=== PATIENT | male | born 1955 | race Caucasian/White ===

== ENCOUNTER → 2021-08-09 11:04 | Outpatient (CLI) | payer MEDICARE, SELFPAY ==
--- NOTE | ~2021-08-09 | XR_ITS ---
XR cervical spine 4-5V DATE: 08/09/2021 11:27 INDICATION: Neck pain for one month. No injury. TECHNIQUE: AP, open-mouth, odontoid, lateral and swimmer views COMPARISON: None FINDINGS: There is reversal of cervical curvature. C1 and C2 are normally aligned and the odontoid process is intact. No fracture or locked facet is kevan dent. No prevertebral soft tissue swelling. 3 mm anterolisthesis at C2-3 and C3-4. 1.5 mm anterolisthesis at C4-5. Moderately severe degenerative disc disease and 2 mm retrolisthesis at C5-6. Moderate degenerative disc disease at C6-7. There is prominent degenerative change at the apophyseal joints throughout the cervical spine. IMPRESSION: Reversal of cervical curvature Prominent degenerative change at the apophyseal joints 3 mm anterolisthesis at C2-3 and C3-4 1.5 mm anterolisthesis at C4-5 Moderately severe degenerative disc disease and 2 mm retrolisthesis at C5-6 Moderate degenerative disc disease at C6-7 Reviewed, dictated and finalized at location A.
== END ==
PROVIDERS: PCP Emergency Medicine; Visit Provider Emergency Medicine
DX: M50.30 Other cervical disc degeneration, unspecified cervical region (principal)
CPT/HCPCS: 72050

== ENCOUNTER 2024-08-08 11:43 | Inpatient (IN) | payer MEDICARE, SELFPAY ==
[2024-08-08] VITALS (10 sets, daily range): BP systolic 114–149; BP diastolic 58–90; PULSE 93–108; RESP 16–20; TEMP 36.4–37.8; O2SAT 92–97; BMI 32.3
--- NOTE | ~2024-08-08 | CT_ITS ---
CT head without contrast Indication: Head injury Technique: Serial scans were obtained through the brain without the administration of contrast. Dose reduction technique was used on this scan by utilizing automated exposure control and iterative recon struction technique. The dose-length product (DLP) was 605.33 mGy-cm. Findings: There is no evidence of intracranial hemorrhage, mass lesion, or acute infarct. The ventri cles and subarachnoid spaces are dilated, consistent with mild atrophy. Low attenuation regions are seen within the periventricular white matter bilaterally, likely representing changes from chronic mi crovascular ischemic disease. There is no evidence of edema, mass effect or midline shift. The visu alized paranasal sinuses and mastoid air cells are clear. Impression: No intracranial hemorrhage, mass, or acute infarct. Atrophy and chronic white matter changes, as above. Reviewed, dictated and finalized at location . Impression: No intracranial hemorrhage, mass, or acute infarct. Atrophy and chronic white matter changes, as above.
--- NOTE | ~2024-08-08 | MR_ITS ---
MR brain/brain stem wo/w con Ordering provider: Vira Gasca APRN History: 69 years Male with . confusion . Comparison: CT head performed yesterday. Technique: MRI brain was performed with and without contrast. 20 cc ProHance was given IV. All Motion artifacts are noted. FINDINGS: BONES: Normal. CRANIOCERVICAL JUNCTION: normal. PITUITARY: Normal. MAJOR INTRACRANIAL VESSELS: Normal flow void. OPTIC NERVES AND CRANIAL NERVES VII AND VIII COMPLEXES: Grossly normal. BRAIN PARENCHYMA AND CSF SPACES: Moderate nonspecific T2 white matter hyperintensities are seen in a bilateral periventricular and deep white matter distribution which are likely related to chronic isc hemic small vessel disease. Moderate diffuse cortical atrophy. The brainstem and cerebellum are anthony l. No acute or chronic intracranial hemorrhage. No extra axial fluid collections. Diffusion weighted and ADC mapping images reveal no recent ischemia. No midline shift or mass effect. No enhancing lesio ns seen. PARANASAL SINUSES: Bilateral ethmoid sinus disease. MASTOIDS: Normal SUPERFICIAL/SURROUNDING SOFT TISSUES: Normal. IMPRESSION: 1. Brain atrophy with deep white matter ischemic changes. White matter disease is not excluded. 2. No acute infarct or hemorrhage. No masses or enhancing lesions seen. Reviewed, dictated and finalized at location A.
--- NOTE | ~2024-08-08 | XR_ITS ---
EXAMINATION: XR lumbar puncture therapeutic DATE: 08/13/2024 17:12 INDICATION: Altered mental status and left hand weakness TECHNIQUE: The procedure including the risks and benefits was discussed with the patient. Risks discu ssed included spinal headache, cerebrospinal fluid leak, bleeding, and infection. The patient underst ood the risks and agreed to proceed. A timeout was performed to verify the patient's name, date of , and procedure to be performed. The skin overlying the L2-L3 level was prepped and draped in usual sterile fashion. Subcutaneous 1% lidocaine was used for local anesthesia. A 22 gauge spinal n eedle was advanced under fluoroscopic guidance. The needle was removed and the entry site was cleaned and dressed. There were no immediate complications. Fluoroscopy exposure time was 0.3 minutes. Tota l DAP was 2.57 Gycm^2. FINDINGS: Real-time fluoroscopy demonstrates the needle at the L2-L3 level. Opening pressure was 22 c m water (Normal range is variably defined as 6-20 cm water and up to 25 cm water in obese patients. P ressure >25 cm water is one of the modified Dandy criteria for idiopathic intracranial hypertension). 12 mL of clear, subtly orange/pinkish tinged fluid was collected in 4 tubes. IMPRESSION: 1. Successful fluoro-guided lumbar puncture with mildly elevated opening pressure of 22 cm water. Reviewed, dictated and finalized at location A. IMPRESSION: 1. Successful fluoro-guided lumbar puncture with mildly elevated opening pressu re of 22 cm water.
--- NOTE | ~2024-08-08 | XR_ITS ---
Portable chest x-ray Comparison: 08/10/2024 Clinical History: Shortness of breath Findings: Lungs are clear, without focal consolidation or pleural effusion. Possible COPD. Cardiome diastinal silhouette is stable. Bones and soft tissues are unremarkable. Impression: Clear lungs. Possible COPD. Reviewed, dictated and finalized at location . Impression: Clear lungs. Possible COPD.
--- NOTE | ~2024-08-08 | XR_ITS ---
MODIFIED ESOPHAGRAM HISTORY: Failed bedside speech/swallow evaluation TECHNIQUE: Modified barium esophagram was performed on 08/12/2024. I administered fluoroscopy and perf ormed the exam with speech pathologist. Patient was seated for lateral fluoroscopic imaging for jo stion of thin liquids, pudding, solids and quantified amounts, followed by thin liquids in uncontroll ed amounts. This was recorded on tape. A single fluoroscopic spot image was also recorded. The DAP fo r this procedure was 1.0 Gycm2. The amount of fluoroscopy time used during this procedure was 1.7 min utes. FINDINGS: Oral stage: Slow and disorganized bolus preparation. There is some oral residue. Pharyngeal stage: Flash laryngeal penetration without aspiration. Cervical/esophageal stage: Adequate function. IMPRESSION: Mild oropharyngeal dysphagia with flash laryngeal penetration without aspiration. Please correlate with speech pathologist findings and specific feeding recommendations. Reviewed, dictated and finalized at location A. IMPRESSION: Mild oropharyngeal dysphagia with flash laryngeal penetration witho ut aspiration. Please correlate with speech pathologist findings and specific feeding recommendations.
--- NOTE | ~2024-08-08 | XR_ITS ---
XR chest PICC line 08/17/2024 09:42 Indication: PICC line placement Procedure: AP portable chest Comparison: 08/12/2024 Findings: Right subclavian PICC line tip in the SVC. Cardiomegaly. Mild interstitial edema. No pleura l effusion or pneumothorax. Impression: 1: Mild interstitial edema. 2: PICC line tip in the SVC.. Reviewed, dictated and finalized at location B. Impression: 1: Mild interstitial edema. 2: PICC line tip in the SVC..
--- NOTE | ~2024-08-08 | XR_ITS ---
EXAMINATION: XR shoulder LT min 2V DATE: 08/08/2024 13:39 INDICATION: Left shoulder injury. Fall. TECHNIQUE: 4 views of left shoulder were obtained. COMPARISON: None. FINDINGS: Alignment is normal. No fracture. There is mild osteoarthritis of glenohumeral joint and mo derate osteoarthritis of acromioclavicular joint. IMPRESSION: 1. Polyarticular osteoarthritis. Reviewed, dictated and finalized at location B.
--- NOTE | ~2024-08-08 | XR_ITS ---
Portable chest x-ray Comparison: 04/26/2012 Clinical History: Altered mental status Findings: Suspected focal retrocardiac airspace disease right lung clear. Cardiomediastinal silhoue tte is stable. Bones and soft tissues are unremarkable. Impression: Probable focal left basilar atelectasis, possibly pneumonia. Correlate clinically. Reviewed, dictated and finalized at location . Impression: Probable focal left basilar atelectasis, possibly pneumonia. Correlate clinical ly.
--- NOTE | ~2024-08-08 | XR_ITS ---
EXAMINATION: XR ankle LT min 3V DATE: 08/08/2024 13:39 INDICATION: Left ankle injury. Fall. TECHNIQUE: 4 views of left ankle were obtained. COMPARISON: None. FINDINGS: Alignment is normal. No fracture. There is mild midfoot osteoarthritis. There is heterotopi c ossification distal to medial and lateral malleoli, likely chronic. There are enthesophytes at the posterior and plantar aspects of calcaneal tuberosity. There is ankle soft tissue swelling. IMPRESSION: 1. Heterotopic ossification distal to medial and lateral malleoli, likely chronic. No specific eviden ce of acute fracture. Reviewed, dictated and finalized at location B. IMPRESSION: 1. Heterotopic ossification distal to medial and lateral malleoli, likely chron ic. No specific evidence of acute fracture.
--- NOTE | ~2024-08-08 | CT_ITS ---
EXAMINATION: CTA brain carotid DATE: 08/10/2024 15:24 INDICATION: stroke workup TECHNIQUE: Computed tomographic angiography (CTA) of the head was performed without and with 100 mL O mnipaque-350 intravenous contrast. CTA of the neck was performed with intravenous contrast. Automated exposure control and iterative reconstruction technique were employed. The dose-length product was 1 810.11 mGy-cm. Maximum intensity projection and volume rendered 3D-reconstructions were created by e technologist on a separate workstation. COMPARISON: CT brain 08/08/2024; CT C-spine 08/08/2024; x-ray left shoulder 08/08/2024. FINDINGS: CT BRAIN: No acute large vessel infarct, intracranial hemorrhage, mass, or hydrocephalus. Mild atrophy and mode rate chronic white matter change. Atherosclerotic intracranial calcification. CTA HEAD: No large vessel occlusion, aneurysm, high flow vascular malformation, nidus or extravasation. Symmetr ic parenchymal enhancement. Patent cerebral veins. CTA NECK: Aortic arch and proximal great vessels: Normal arch anatomy. Mild atherosclerotic calcifications at t he visualized aortic arch and proximal great vessels. Right common carotid, carotid bifurcation, and internal carotid artery: Motion artifact partially obs cures the level of the carotid bifurcation. Calcified atherosclerotic plaque at the carotid bifurcati on.There is 0% stenosis of the proximal right internal carotid artery relative to normal distal arter y lumen diameter (NASCET criteria). Left common carotid, carotid bifurcation, and internal carotid artery: Motion artifact partially obsc ures the level of the carotid bifurcation. Calcified atherosclerotic plaque at the carotid bifurcatio n.There is 0% stenosis of the proximal left internal carotid artery relative to normal distal artery lumen diameter (NASCET criteria). Vertebral arteries: Motion and beam hardening artifact partially obscures the origins of the vertebra l arteries. No significant plaque or stenosis. Vertebral arteries co-dominant. Other findings: Multilevel cervical listheses, degenerative disc disease, and facet arthropathy. Subc utaneous stranding in the soft tissues anterior to the left clavicle and anterior and posterior to th e left trapezius muscle. IMPRESSION: No acute intracranial process. No large vessel intracranial occlusion, high-grade intracranial stenosis, or aneurysm. No carotid or vertebral artery occlusion, dissection, or significant stenosis, within the constraints of mild motion artifact described above. Soft tissue stranding/edema along the left previous muscle and anterior to the left clavicle. Reviewed, dictated and finalized at location K. IMPRESSION: No acute intracranial process. No large vessel intracranial occlusion, high-grade intracranial stenosis, or an eurysm. No carotid or vertebral artery occlusion, dissection, or significant stenosis, within the constraints of mild motion artifact described above. Soft tissue stranding/edema along the left previous muscle and anterior to the left clavicle.
--- NOTE | ~2024-08-08 | CT_ITS ---
EXAMINATION: CT cervical spine wo con DATE: 08/08/2024 13:23 INDICATION: Neck injury. Fall. TECHNIQUE: Computed tomography (CT) of the cervical spine was performed without intravenous contrast. Automated exposure control and iterative reconstruction technique were employed. The dose-length pro duct was 401.12 mGy-cm. COMPARISON: None FINDINGS: There is kyphosis of cervical spine. There is 10 degrees dextroscoliosis of cervical spine. There is 3 mm anterolisthesis of C3 on C4 and C4 on C5. Vertebral body heights are normal. There is mildly decreased disc height at C2-C3, moderately decreased disc height at C3-C4, mildly decreased di sc height at C4-C5, and severely decreased disc height at C5-C6 and C6-C7. The following disc levels are specifically discussed: C2-C3: There is severe right and mild left uncovertebral joint osteoarthritis. There is severe bilate ral facet joint osteoarthritis. There is mild bilateral neural foraminal stenosis. There is mild cent ral canal stenosis. C3-C4: There is mild right and severe left uncovertebral joint osteoarthritis. There is severe bilate ral facet joint osteoarthritis. There is mild right and moderate left neural foraminal stenosis. Ther e is mild central canal stenosis. C4-C5: There is mild right and severe left uncovertebral joint osteoarthritis. There is severe bilate ral facet joint osteoarthritis. There is mild left neural foraminal stenosis. There is mild central c anal stenosis. C5-C6: There is severe bilateral uncovertebral joint osteoarthritis. There is severe bilateral facet joint osteoarthritis. There is mild bilateral neural foraminal stenosis. There is mild central canal stenosis. C6-C7: There is severe bilateral uncovertebral joint osteoarthritis. There is mild right and severe l eft facet joint osteoarthritis. There is mild right neural foraminal stenosis. There is mild central canal stenosis. C7-T1: There is no uncovertebral joint osteoarthritis. There is mild right and moderate left facet keshawn int osteoarthritis. There is mild left neural foraminal stenosis. There is no central canal stenosis. IMPRESSION: 1. No fracture 2. Severe cervical spondylosis. 3. Cervical dextroscoliosis and kyphosis. Reviewed, dictated and finalized at location B.
--- NOTE | 2024-08-08 13:17 | ED.LOWEXIN ---
HPI - Extremity Injury (Lower) General Chief Complaint: Extremity Injury, Lower Stated Complaint: fall Time Seen by Provider: 08/08/24 12:28 History of Present Illness HPI Narrative: 69-year-old male presenting from home via EMS for concerns of left ankle and left shoulder pain. Patient had a ground level fall 4 days ago on Monday night after he took 2 doses of his muscle relaxer in 2 doses of his trazodone to help him sleep. He felt dizzy and fell to the ground but was able to get himself up. Over the next several days he has been having some pain in his left shoulder and left ankle and today came to the ER for evaluation. History of hypertension and reported prior stroke with no deficits. present at bedside corroborates the story. Patient self states he has chronic neck pain and neck stiffness for which she is prescribed trazodone muscle relaxers but he took double the dose to help him sleep. No loss of consciousness during the fall, no head trauma during the fall. No chest pain, shortness a breath, nausea, vomiting, weakness, fatigue, neuropathy, weakness or any sensory deficits. Related Data Home Medications ?Medication ?Instructions ?Recorded ?Confirmed ?Last Taken ?Type amlodipine 10 mg tablet 10 mg 11/12/20 Unknown History irbesartan 150 mg tablet 150 mg 11/12/20 Unknown History lisinopril 20 tablet 11/12/20 Unknown History mg-hydrochlorothiazide 12.5 mg tablet magnesium oxide 400 mg (241.3 mg 400 mg 11/12/20 Unknown History magnesium) tablet rosuvastatin 10 mg tablet 10 mg 11/12/20 Unknown History Allergies Allergy/AdvReac Type Severity Reaction Status Date / Time No Known Allergies Allergy Verified 08/08/24 11:52 Review of Systems Review of Systems: As reviewed above in [facility] Family History Family History Sibling Family history of cardiovascular disease Other Diabetes mellitus Social History Social History Smoking packs per day: 1 Smoking cigarettes per day: 20.0 Smoking status: Current every day smoker Tobacco type: cigarettes Gender identity (if verbalized by the patient): Male Spiritual care concerns: No Exam Narrative: GENERAL: [Well-appearing, well-nourished, and in no acute distress.] HEAD: [Normocephalic, atraumatic.] EYES: [PERRLA and EOMI.] ENT: Nares clear, no rhinorrhea or epistaxis. Mucous membranes moist. NECK: Supple. CHEST: [Clear to auscultation. No respiratory distress.] HEART: [Regular rate and rhythm]. No murmur heard. [Normal peripheral pulses.] ABDOMEN: [Soft, nondistended], [nontender], [No rigidity or guarding] EXTREMITIES: Tenderness to palpation of the medial malleolus of the left ankle without any step-offs deformities. Plantar dorsiflexion 5/5. Tenderness to palpation over the left lateral AC joint on the left shoulder but able to flex and range the shoulder without difficulty. No midline tenderness to the cervical thoracic or lumbar spine. No obvious external injuries or head trauma. No swelling. SKIN: Warm, dry, no rash. NEURO: [No focal deficits]. Alert and oriented [x3.] PSYCH: [Normal mood and affect.] Course Vital Signs Vital signs: Vital Signs Temperature 36.4 C 08/08/24 11:28 Pulse Rate 98 08/08/24 11:28 Respiratory Rate 18 08/08/24 11:28 Blood Pressure 136/73 08/08/24 11:28 Pulse Oximetry 95 08/08/24 11:28 Oxygen Delivery Room Air 08/08/24 11:28 Temperature 36.4 C 08/08/24 11:28 Pulse Rate 93 08/08/24 15:33 Respiratory Rate 20 08/08/24 15:33 Blood Pressure 140/88 08/08/24 15:33 Pulse Oximetry 92 08/08/24 15:33 Oxygen Delivery Room Air 08/08/24 11:28 MDM - Extremity Injury (Lower) MDM Narrative Medical decision making narrative: 69-year-old male presenting for a ground level fall 4-5 days ago with some resultant left shoulder and left ankle injury/pain. Has been able to walk and bear weight on it but has increasing pain today. Has been taking [id number]-[id number] medications at home with mild relief of symptoms. His fall sounded mechanical in nature after he took 2 doses of trazodone and 2 doses of muscle relaxer to help her sleep. No head trauma or loss consciousness. He has normal neurovascular assessment today. 2+ pulses, no focal weakness or sensory deficits. Normal vital signs. Given his age and risk factors however we will obtain CT of the head and cervical spine to make sure there is no occult injury or intracranial process although very unlikely. X-rays of left shoulder and left ankle were obtained and he was provide Tranquillity for analgesia and re-evaluated. Most likely differential includes muscle sprain, muscle spasm, occult fracture, very unlikely dislocation. X-rays were negative for any acute injury. He has chronic osteoarthritis and no acute deformity. Shoulder x-ray shows polyarticular osteoarthritis. Anxious ray of the ankle shows no evidence of acute fracture, heterotopic ossification chronic. Head CT without any acute intracranial hemorrhage or findings. Cervical spine showing no acute fracture, severe spondylosis which patient is aware of. Patient is safe and stable for discharge home at this time, encouraged to take Tylenol ibuprofen for pain control at home. Counseled on cessation from muscle relaxers and sleep aids or to decrease the dose to something more tolerable. Medical Records Attestation: I reviewed the patient's medical records. Imaging Data Attestation: I personally reviewed and interpreted this imaging study as follows: My impression: Impressions Cervical Spine CT 08/08/24 13:28 IMPRESSION: 1. No fracture 2. Severe cervical spondylosis. 3. Cervical dextroscoliosis and kyphosis. Head CT 08/08/24 13:29 Impression: No intracranial hemorrhage, mass, or acute infarct. Atrophy and chronic white matter changes, as above. Ankle X-Ray 08/08/24 13:42 IMPRESSION: 1. Heterotopic ossification distal to medial and lateral malleoli, likely chronic. No specific evidence of acute fracture. Shoulder X-Ray 08/08/24 13:45 IMPRESSION: 1. Polyarticular osteoarthritis. Discharge Plan Discharge Clinical Impression: Fall from ground level, Left ankle sprain, Left shoulder pain Patient Disposition: Home, Self-Care Condition: Stable Instructions: Antibiotic Form, Ankle Sprain (DC) Additional Instructions: Your x-rays did not show any acute fractures or injury. Your CT scan shows no injury or fracture. You likely have a small ankle sprain to her left ankle secondary to the fall but nothing broken. Tylenol and ibuprofen for needed pain control. Michele wrap for comfort. Follow-up with regular doctor. Hold off on taking muscle relaxers or trazodone for sleep and talk to your doctor about decreasing the dose of these medications. Patient Language: Mohawk Prescriptions: No Action lisinopril-hydrochlorothiazide 20-12.5 mg tablet magnesium oxide 400 mg (241.3 mg magnesium) tablet 400 mg amlodipine 10 mg tablet 10 mg irbesartan 150 mg tablet 150 mg rosuvastatin 10 mg tablet 10 mg Follow-up/Referrals: Michael Solorzano MD [Primary Care Provider] - Time of Disposition: 16:28
[2024-08-08] MEDS: HYDROcodone/acetaminophen (*CRX) 5-325 MG TABLET 1 TAB PO (14:02)
--- OUTSIDE RECORDS SUMMARY | 2024-08-08 14:03 | XMS_ITS | Clinical Summary ---
Author Organization [facility] Address [address] [place] [address] Phone Care Team Providers Care Chief Nursing Executive Name Role Phone Jed Elizabeth MD Primary Care Provider [phone] Allergies No known active allergies Medications clopidogrel (PLAVIX) 75 mg Oral Tab Take 75 mg by mouth daily. Active nebivolol (BYSTOLIC) 5 mg Oral Tab Take 5 mg by mouth. Active omega-3 acid ethyl esters (LOVAZA) 1 gram Oral Cap Take 2 Gram by mouth daily. Active aspirin (BRETT) 325 mg Oral tablet Take 325 mg by mouth daily. Active omeprazole (PRILOSEC) 20 mg Oral CpDR Take 20 mg by mouth daily. Active lisinopril (PRINIVIL) 20 mg Oral tablet Take 20 mg by mouth daily. Active AZILSARTAN MED/CHLORTHALIDO NE (EDARBYCLOR ORAL) Take 40 mg by mouth daily. Active HYDROcodone-acet aminophen (NORCO) 7.5-325 mg Oral Tab Take 1-2 Tabs by mouth every 4 hours as needed for Pain. 90 Tab 0 02/12/2013 Active cyclobenzaprine (FLEXERIL) 10 mg Oral tablet Take 1 Tab by mouth 3 times daily as needed for Spasm. 90 Tab 0 02/12/2013 Active Active Problems Patient Care Coordination No te Formatting of this note migh t be different from the original. Dr. Karri Wheeler- Medical Insurance Claims Processor No known active problems Family History Medical History Relation Name Comments Heart Attack Father Heart Surgery Father High Cholesterol Father Hypertension Father Pacemaker Father Heart Attack Sister Heart Surgery Sister Hypertension Sister Relation Name Status Comments Brother Mamadou Alive Father Maternal Grandfather Maternal Grandmother Mother Paternal Grandfather Paternal Grandmother Sister Social History Tobacco Use Types Packs/Day Years Used Date Smoking Tobacco: Every Day Cigarettes 1 25 Smokeless Tobacco: Never Alcohol Use Standard Drinks/Week Comments No 0 (1 standard drink = 0.6 oz pur e alcohol) Sex and Gender Information Value Date Recorded Sex Assigned at Not on file Legal Sex Male 9:08 AM CDT Gender Identity Not on file Sexual Orientation Not on file Occupation Industry Job Start Date Job End Date Not on file Not on file Not on file Not on file Last Filed Vital Signs Vital Sign Reading Time Taken Comments Blood Pressure 116/74 02/12/2013 11:18 AM CDT Pulse 79 02/12/2013 11:18 AM CDT Temperature 36.2 C (97.2 F) 02/12/2013 11:18 AM CDT Respiratory Rate 16 02/12/2013 11:18 AM CDT Oxygen Saturation 97% 02/12/2013 11:18 AM CDT Inhaled Oxygen Concentration - - Weight 101.6 kg (224 lb) 02/12/2013 5:42 AM CDT Height 175.3 cm (5' 9 ) 02/08/2013 10:28 AM CDT Body Mass Index 33.08 02/08/2013 10:28 AM CDT Plan of Treatment Health Maintenance Due Date Last Done Comments DTAP/TDAP/TD VACCINES (1 - Tdap) 1973 PNEUMOCOCCAL VACCINE 50+ YEARS (1 of 2 - PCV) 05/12/19 73 COLORECTAL SCREENING 1999 Colorectal Cancer Screening 1999 FIT-DNA Q 3 years 1999 FIT/FOBT Q 1 year 1999 Flex Sig/CT Colonography Q 5 years 1999 ZOSTER VACCINE (1 of 2) 2004 INFLUENZA VACCINE (#1) 2023 RSV VACCINE (60+ or ) (1 - 1-dose 75+ series) 2029 Medical Devices Implanted Type Area Tank Setter Device Identifier Shelf Expiration Date Model / Serial / Lot Sealant Floseal W/ Adptr 10ml [id number] - [id number] Implanted:Qty: 1 on 02/12/2013 by Juan Daniel Campa MD at [facility] Sealant N/A: Back Neutral Space- [employer] 04/14/2014 [id number] / / [id number] Insurance [facility] [id number] Advance Directives For more information, please contact: [phone] * Full Code (Latest Code Status on File) Date Activated Date Inactivated Comments 02/12/2013 6:15 AM 02/12/2013 1:36 PM * Full Code Date Activated Date Inactivated Comments 02/12/2013 5:44 AM 02/12/2013 6:15 AM Care Teams Chief Nursing Executive Relationship Specialty Start Date End Date Jed Elizabeth MD PCP - General Family Practice 12/03/12
--- OUTSIDE RECORDS SUMMARY | 2024-08-08 14:03 | XMS_ITS | Encounter Summary ---
Author Organization [facility] Healthcare Address [address] [place] [address] Care Team Providers Care Employee Communications Intern Name Role Phone Endy Carrero MD Unavailable [phone] Derick Clemente MD Primary Care Provider Reason for Visit * Reason Onset Date Comments Medical Question/Miscellaneous 08/05/2024 Encounter Details Date Type Department Care Team (Late st Contact Info) Description 08/05/2024 Telephone [facility] Medical Group Primary Care at [address] [place] [address] Derick Clemente MD [address] [place] [address] [address] [place] [address] Medical Question/Miscellaneous Social History Tobacco Use Types Packs/Day Years Used Date Smoking Tobacco: Every Day Cigarettes 1 52.2 Started: 1974 Passive Smoke Exposure: Never Smokeless Tobacco: Never Alcohol Use Standard Drinks/Week Comments Yes 0 (1 standard drink = 0.6 oz pur e alcohol) AUDIT-C Answer Date Recorded Q1: How often do you have a drink containing alcohol? Never 11/23/2023 Q2: How many drinks containi ng alcohol do you have on a typical day when you are drinking? Patient does not drink Q3: How often do you have si x or more drinks on one occasion? Never 11/23/2023 PHQ-2 Answer Date Recorded PHQ-2 Total Score (If total score is 3 or more points, staff should administer the PHQ-9) 0 08/01/2024 Personal Safety Answer Date Recorded Have you ever been in or are you currently in a harmful physical or emotional relationship or is someone making you feel afraid or unsafe? 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 Gender Identity Not on file Sexual Orientation Not on file documented as of this encounter Miscellaneous Notes * Telephone Encounter - Derick Clemente MD - 08/06/2024 9:13 AM CDT SA[facility] noted, I agree with the advice if there is any concern about potential stroke * Telephone Encounter - Tyloraugust - 08/05/2024 4:06 PM CDT Medical Question/Miscellaneous Caller???s Concern: pt spouse call stated that she believes the pt took to much medication traZODone / Cyclobenzaprine fallen and looked like he had stroke/ I advised her to call [facility] and go to the [facility] // please follow up Does message need to be routed? Yes-Action Needed documented in this encounter Plan of Treatment Not on file documented as of this encounter Visit Diagnoses Not on filedocumented in this encounter Care Teams Employee Communications Intern Relationship Specialty Start Date End Date Derick Clemente MD [address] [place] [address] DR PEDRO CRAWFORD [address] [place] [id number] PCP - General Family Medicine 08/01/24 Endy Carrero MD [address] [place] [address] [place] [address] Referring Physician Plastic Surgery 06/01/22 documented as of this encounter
--- OUTSIDE RECORDS SUMMARY | 2024-08-08 14:03 | XMS_ITS | Referral Summary ---
Author Organization [facility] Address [address] [place] [address] Phone Care Team Providers Care Chemical Unit Operator Name Role Phone Endy Carrero MD Unavailable [phone] Derick Clemente MD Primary Care Provider Encounters Date Type Department Care Team Description 08/05/2024 Telephone [facility] Primary Care at [address] [place] [address] Derick Clemente MD Medical Question/Miscellaneous 08/01/2024 8:30 AM LABOR OPERATOR Office Visit [facility] Medical [facility] Primary Care at [address] [address] Derick Clemente MD Preventative health care (Primary Dx); Essential (primary) hypertension; Class 1 obesity due to excess calories with serious comorbidity and body mass index (BMI) of 32.0 to 32.9 in adult; Acquired hypothyroidism; Personal history of tobacco use; Primary insomnia; Hypercholesterolemia; Colon cancer screening; Gastroesophageal reflux disease without esophagitis; Need for hepatitis B screening test; Vitamin D deficiency; Neck stiffness; Screening for abdominal aortic aneurysm from Last 3 Months Allergies No known active allergies Medications aspirin 81 mg enteric coated tabletIndications :prevention of thrombosis Take 1 tablet (81 mg total) by mouth every morning Active magnesium oxide (MAG-OX) 400 mg (241.3 mg elemental magnesium) tabletIndications :Essential (primary) hypertension TAKE 2 TABLETS(800 MG) BY MOUTH TWICE DAILY 360 tablet 1 024 Active amLODIPine (NORVASC) 10 mg tabletIndications :Essential (primary) hypertension TAKE 1 TABLET(10 MG) BY MOUTH EVERY NIGHT 100 tablet 1 025 Active levothyroxine (SYNTHROID) 75 mcg tabletIndications :Acquired hypothyroidism TAKE 1 TABLET BY MOUTH EVERY MORNING BEFORE BREAKFAST 100 tablet 1 025 Active irbesartan (AVAPRO) 300 mg tabletIndications :Essential (primary) hypertension TAKE 1 TABLET(300 MG) BY MOUTH DAILY 90 tablet [address] (NexIUM) 20 mg capsule Take 1 capsule (20 mg total) by mouth daily before breakfast Active traZODone (DESYREL) 150 mg tabletIndications :Primary insomnia Take 1 tablet (150 mg total) by mouth nightly as needed for sleep 90 tablet 3 025 Active rosuvastatin (CRESTOR) 20 mg tabletIndications :Hypercholesterol emia Take 1 tablet (20 mg total) by mouth daily 100 tablet 3 025 Active cyclobenzaprine (FLEXERIL) 10 mg tabletIndications :Muscle Spasm Take 1 tablet (10 mg total) by mouth 2 (two) times a day as needed for muscle spasms (neck stiffness) 30 tablet [address] (NexIUM) 20 mg capsuleIndication s:acid reflux Take 1 capsule (20 mg total) by mouth every morning 2024 Discontinued(T herapy completed) erythromycin (ILOTYCIN) ophthalmic ointment Apply to eyelid incisions 3 times a day[address] Only place ointment in the eyes if they are irritated. 3.5 g 3 024 2024 Discontinued(T herapy completed) rosuvastatin (CRESTOR) 20 mg tabletIndications :High cholesterol Take 1 tablet (20 mg total) by mouth daily 100 tablet 3 024 2024 Discontinued(R zeenat) irbesartan (AVAPRO) 300 mg tabletIndications :Essential (primary) hypertension TAKE 1 TABLET(300 MG) BY MOUTH DAILY 90 tablet 1 024 2024 Discontinued doxepin (SINEquan) 10 mg capsule Take 1 capsule (10 mg total) by mouth nightly as needed for sleep 90 capsule 024 2024 Discontinued(T herapy completed) cyclobenzaprine (FLEXERIL) 10 mg tabletIndications :Neck strain, initial encounter Take 1 tablet (10 mg total) by mouth 3 (three) times a day as needed for muscle spasms 20 tablet 2024 Discontinued(T herapy completed) methylPREDNISolon e (MEDROL DOSEPACK) 4 mg DosepackIndicatio ns:Neck strain, initial encounter Take 6 tabs on day 1, reduce dose by 1 daily until prescription is complete. 1 packet 2024 Discontinued(T herapy completed) traZODone (DESYREL) 150 mg tablet Take 1 tablet (150 mg total) by mouth nightly 2024 Discontinued(R eorder) ergocalciferol (VITAMIN D) 50,000 unit capsule Take 1 capsule (50,000 Units total) by mouth once a week 2024 Discontinued(T herapy completed) Active Problems Problem Noted Date Diagnosed Date Gastroesophageal reflux disease without esophagi tis 08/01/2024 Assessment & Plan (08/01/2024 8:56 AM LABOR OPERATOR): - chronic condition, stable status - takes Nexium OTC daily - continue current management Vitamin D deficiency 08/01/2024 Assessment & Plan (08/01/2024 8:58 AM LABOR OPERATOR): - hx of vitamin D def - not on any supplements, recheck labs, order placed No results found for: 25HYDROVITD Preventative health care 08/01/2024 Assessment & Plan (08/01/2024 9:12 AM LABOR OPERATOR): - New or chronic worsening conditions: Insomnia - Mental health: no significant psychiatric/mental health conditions affecting her day to day functioning - Dental health: Recommend regular dental care and cleaning. Discussed importance of regular tooth brushing, flossing, and dental visits. - Nutrition: Recommend moderation in sodium/caffeine intake, saturated fat and cholesterol, caloric balance, sufficient intake of fresh fruits, vegetables - Exercise: Recommend to exercise at least 30 minutes moderate to vigorous exercise most days of the week. (minimum 150 minutes weekly) - Immunizations: Age and sex appropriate immunizations reviewed - recommend pneumococcal vaccination - Prostate cancer screening: Up to date - Colon cancer screening: Recommended, never done, cologuard kit ordered - Lung cancer screening: past due, order placed - AAA screening - past due, order placed Lab Results Component Value Date PSA 1.32 12/26/2023 PSA 1.51 06/02/2022 Neck stiffness 08/01/2024 Assessment & Plan (08/01/2024 9:09 AM LABOR OPERATOR): - Reports intermittent neck stiffness, requesting muscle relaxer - Order provided for Flexeril which he has used in the past for as needed use only - No prior imaging of cervical spine which I recommend be done future Class 1 obesity due to exces s calories with serious comorbidity and body mass index (BMI) of 32.0 to 32.9 in adult 11/23/2023 Assessment & Plan (08/01/2024 8:50 AM LABOR OPERATOR): Wt Readings from Last 3 Encounters: 08/01/24 96.3 kg (212 lb 6.4 oz) 04/26/24 98.9 kg (218 lb) 11/23/23 98 kg (216 lb) Body mass index is 32.3 kg/m . - chronic condition, not at goal - small weight loss noted - goal BMI <30 - BMI Follow-up includes: nutrition counseling, exercise counseling and education provided - Recommend to exercise at least 30 minutes moderate to vigorous exercise most days of the week. (minimum 150 minutes weekly) Assessment & Plan (11/23/2023 3:00 PM CDT): Chronic. Uncontrolled but improving. Work on diet, exercise, weight loss Lesion of canthus of left eye 05/01/2023 Assessment & Plan (05/01/2023 6:59 PM LABOR OPERATOR): Acute issues. Patient has slight redness with a small area that looks like there might be a clogged gland or cyst within the medial canthus of the left eye. Exact etiology is unclear. Recommended ophthalmology evaluation and warm compresses Acquired hypothyroidism 10/28/2022 Assessment & Plan (08/01/2024 8:51 AM LABOR OPERATOR): - chronic condition - status: well controlled - any hx of surgery, radiation: none - current medication: Levothyroixine 75 mcg daily - most recent labs as shown below - continue current management with changes as indicated above if applicable Lab Results Component Value Date TSH 2.75 12/26/2023 TSH 3.51 01/18/2023 TSH 5.85 (H) 06/02/2022 FREET4 0.86 (L) 06/02/2022 Assessment & Plan (11/23/2023 2:59 PM CDT): Chronic. Clinically euthyroid. Stressed need to get previously ordered TSH. Adjust levothyroxine based on results Assessment & Plan (05/01/2023 6:52 PM LABOR OPERATOR): Chronic. Relatively euthyroid. Continue levothyroxine. Adjust as needed Nicotine dependence with current use 10/28/2022 Assessment & Plan (08/01/2024 8:54 AM LABOR OPERATOR): Social History Tobacco Use Smoking Status Every Day Current packs/day: 1.00 Average packs/day: 1 pack/day for 52.2 years (52.2 ttl pk-yrs) Types: Cigarettes Start date: 1972 Passive exposure: Never Smokeless Tobacco Never - chronic condition, not at goal, reports smoking less now, down to 1/2 pk day - assessed patient readiness for tobacco smoking cessation - discussed the importance of tobacco smoking cessation with goal of being tobacco free Assessment & Plan (11/23/2023 2:59 PM CDT): Chronic. Uncontrolled. Counseled to quit. Reviewed health riskss Assessment & Plan (05/01/2023 6:53 PM LABOR OPERATOR): Chronic. Patient reports he has cut back some. Counseled to quit. Reviewed health risk Essential (primary) hypertension 02/24/2022 Assessment & Plan (08/01/2024 8:51 AM LABOR OPERATOR): Blood Pressure Management BP Readings from Last 3 Encounters: 08/01/24 132/84 04/26/24 144/83 11/23/23 122/65 Chronic condition Status - is adequately controlled. Current medications are: Irbesartan 300 mg daily, Amlodipine 10 mg daily Patient is compliant with medications. Patient denies any side effects or adverse side effects from the medication/s. Follow a low salt diet Monitor blood pressure regularly at home Continue current management unless change made above The 10-year ASCVD risk score (Jacki KOVACS, et al., 2019) is: 26.4% Values used to calculate the score: Age: 69 years Sex: Male Is Non- : No Diabetic: No Tobacco smoker: Yes Systolic Blood Pressure: 132 mmHg Is BP treated: Yes HDL Cholesterol: 34 mg/dL Total Cholesterol: 143 mg/dL Lab Results Component Value Date LDLCALC 80 12/26/2023 Lab Results Component Value Date GLUCOSE 100 12/26/2023 CALCIUM 9.4 12/26/2023 SODIUM 138 12/26/2023 POTASSIUM 4.0 12/26/2023 CO2 24 12/26/2023 CHLORIDE 103 12/26/2023 BUNSER 15 12/26/2023 CREATININE 1.11 12/26/2023 Assessment & Plan (11/23/2023 2:58 PM CDT): Chronic. HTN controlled. Cont prescription Rx as indicated in HPI under HTN diagnosis. Low sodium diet (DASH or Mediterranean), exercise, wt loss (if over weight) discussed Assessment & Plan (05/01/2023 6:52 PM LABOR OPERATOR): Chronic. HTN controlled. Cont prescription Rx. Low sodium diet (DASH or Mediterranean), exercise, wt loss (if over weight) discussed Hypercholesterolemia 02/24/2022 Assessment & Plan (08/01/2024 8:53 AM LABOR OPERATOR): - chronic condition - status: is adequately controlled. - current management/medications: Rosuvastatin 20 mg daily - other comorbid conditions:hypretension, CAD - patient is compliant with medications. - most recent LDL as shown below - maintain a healthy weight, diet - will monitor closely - continue current management Lab Results Component Value Date LDLCALC 80 12/26/2023 Lab Results Component Value Date ALT 10 12/26/2023 AST 18 12/26/2023 ALKPHOS 73 12/26/2023 BILITOT 0.5 12/26/2023 Assessment & Plan (11/23/2023 2:58 PM CDT): Chronic. Control uncertain. Continue rosuvastatin. Needs to do previously ordered labs. Stressed this again Assessment & Plan (05/01/2023 6:52 PM LABOR OPERATOR): Chronic. Tolerates medication. Patient reports fair compliance with medication. Check and adjust as needed. LDL goal less than 70 Coronary artery disease invo lving cabazon coronary artery of cabazon heart without angina pectoris 02/24/2022 Assessment & Plan (11/23/2023 2:59 PM CDT): Chronic. Stable. Asymptomatic. Continue risk factor modfication with ASA, statin BP control. Counseled to quit smoking Assessment & Plan (05/01/2023 6:52 PM LABOR OPERATOR): Chronic. Continue risk factor modification with high intensity cholesterol medication, blood pressure control, aspirin Primary insomnia 02/24/2022 Assessment & Plan (08/01/2024 8:52 AM LABOR OPERATOR): - chronic condition, worse - has been out of his medication for months - restart Trazodone 150 mg nightly, script sent in Assessment & Plan (11/23/2023 2:59 PM CDT): Chronic. Controlled. Continue trazodone Assessment & Plan (05/01/2023 6:52 PM LABOR OPERATOR): Chronic. Work on sleep hygiene. Continue can trazodone Resolved Problems Problem Noted Date Diagnosed Date Resolved Date Conjunctival lesion 10/03/2023 08/02/19 25 Cicatricial ectropion of left lower eyelid 08/30/2023 08/01/2024 Lesion of conjunctiva 08/30/20232024 Cervicalgia 02/24/2022 08/01/2024 Immunizations Immunization Administration Dates Next Due Influenza, Quad, Adjuvantate d, Intramuscular 06/08/2021 Influenza, Quadrivalent, Hig h Dose, Preservative Free, Intrr 05/01/2023,06/01/2022 Influenza, Unspecified 08/01/2024(Deferr ed: Patient Refused),05/29/2023(Deferred: Patient Refused) Social History Tobacco Use Types Packs/Day Years Used Date Smoking Tobacco: Every Day Cigarettes 1 52.2 Started: 1973 Passive Smoke Exposure: Never Smokeless Tobacco: Never Tobacco Cessation:Ready to Q uit: No; Counseling Given: Yes Alcohol Use Standard Drinks/Week Comments Yes 0 [...] on file Legal Sex Male 2:41 AM LABOR OPERATOR Gender Identity Not on file Sexual Orientation Not on file Last Filed Vital Signs Vital Sign Reading Time Taken Comments Blood Pressure 132/84 08/01/2024 8:31 AM LABOR OPERATOR Pulse 80 08/01/2024 8:31 AM LABOR OPERATOR Temperature 36.8 C (98.2 F) 08/01/2024 8:31 AM LABOR OPERATOR Respiratory Rate 20 04/26/2024 2:30 PM LABOR OPERATOR Oxygen Saturation 98% 08/01/2024 8:31 AM LABOR OPERATOR Inhaled Oxygen Concentration - - Weight 96.3 kg (212 lb 6.4 oz) 08/01/2024 8:31 A M LABOR OPERATOR Height 172.7 cm (5' 8 ) 08/01/2024 8:31 AM LABOR OPERATOR Body Mass Index 32.3 08/01/2024 8:31 AM LABOR OPERATOR Plan of Treatment Not on file Medical Devices Implanted Type Area Go Go Dancer Device Identifier Shelf Expiration Date Model / Serial / Lot Cardiac Stent X 1 N/A: Heart Procedures Procedure Name Priority Date/Time Associated Diagnosis Comments PSA SCREEN Routine 12/26/2023 8:25 AM CDT Annual physical exam BPH without urinary obstruction HEPATITIS C ANTIBODY Routine 06/02/2022 8:14 AM LABOR OPERATOR Encounter for hepatitis C screening test for low risk patient Routine physical examination from Last 3 Months or Most Recently Relevant to Health Maintenance Results * PSA screen (12/26/2023 8:25 AM CDT) PSA-Total 1.32 <=5.40 ng/mL Comment: Interpretive Data AGE SEX REFERENCE INTERVAL 0 minutes-150 years Female None 0 minutes-49 years Male None 50-59 years Male 0-3.90 60-69 years Male 0-5.40 70-79 years Male 0-6.20 80-150 years Male 0-6.20 The Mary PSA Total assay procedure was used. Results from different manufacturers or methods may not be comparable. Serial testing should be performed using the same method. Current interpretive data last revised 21. Blood 12/26/2023 8:25 AM CDT 12/26/2023 2:23 PM CDT Balbina Be MD LAB BLOOD ORDERABLES F inal Result [facility] [id number] [address] Department [place] [address] * Hepatitis C antibody (06/02/2022 8:14 AM LABOR OPERATOR) Hep C Ab Nonreactive Nonreactive [facility] Comment: Interpretive Data Nonreactive: Antibodies to HCV not detected. Does NOT exclude the possibility of recent exposure to HCV. Equivocal: Equivocal for HCV antibodies. Supplemental molecular testing will be automatically performed to determine infection status in accordance with current CDC screening recommendations. Reactive: Positive for HCV antibodies. This may represent current or past HCV infection. Supplemental molecular testing will be automatically performed to determine current infection status in accordance with current CDC screening recommendations. Interpretive data was last revised on 2019. Blood 06/02/2022 8:14 AM LABOR OPERATOR 06/02/2022 3:36 PM LABOR OPERATOR us Balbina Be MD LAB MICROBIOLOGY - GEN [place] [id number] [address] Department [place] [address] from Last 3 Months or Most Recently Relevant to Health Maintenance Insurance MEDICARE FORMERLY [facility] MEDICARE FORMERLY [facility] MEDICARE [employer] MEDICARE SUPPLEMENT MEDICARE FORMERLY [facility] Care Teams Chemical Unit Operator Relationship Specialty Start Date End Date Derick Clemente MD [address] [place] [address] DR PEDRO CRAWFORD [address] [place] [id number] PCP - General Family Medicine 08/01/24 Endy Carrero MD [id number] [place] [address] Referring Physician Plastic Surgery 06/01/22
--- OUTSIDE RECORDS SUMMARY | 2024-08-08 14:03 | XMS_ITS | Clinical Summary ---
Author Organization [facility] Address [address] [facility] [address] [place] [id number] Phone Care Team Providers Care Assistant Track Coach Name Role Phone Endy Carrero MD Unavailable [phone] Derick Clemente MD Primary Care Provider Allergies No known active allergies Medications aspirin [...] daily 100 tablet 3 024 2024 Discontinued(R eorder) irbesartan (AVAPRO) 300 mg tabletIndications :Essential (primary) [...] as needed for muscle spasms 20 tablet 024 2024 Discontinued(T herapy completed) methylPREDNISolon e (MEDROL DOSEPACK) 4 mg DosepackIndicatio ns:Neck strain, initial encounter Take 6 tabs on day 1, reduce dose by 1 daily until prescription is complete. 1 packet 024 2024 Discontinued(T herapy completed) traZODone (DESYREL) 150 mg tablet Take 1 tablet (150 mg total) by mouth nightly 2024 Discontinued(R eorder) ergocalciferol (VITAMIN D) 50,000 unit capsule Take 1 capsule (50,000 Units total) by mouth once a week 2024 Discontinued(T herapy completed) Active Problems Problem Noted Date Diagnosed Date Gastroesophageal reflux disease without esophagi tis 08/01/2024 Assessment & Plan (08/01/2024 8:56 AM [employer]): - chronic condition, stable status - takes Nexium OTC daily - continue current management Vitamin D deficiency 08/01/2024 Assessment & Plan (08/01/2024 8:58 AM [employer]): - hx of vitamin D def - not on any supplements, recheck labs, order placed No results found for: 25HYDROVITD Preventative health care 08/01/2024 Assessment & Plan (08/01/2024 9:12 AM [employer]): - New or chronic worsening conditions: Insomnia [...] 08/01/2024 Assessment & Plan (08/01/2024 9:09 AM [employer]): - Reports intermittent neck stiffness, requesting muscle [...] 11/23/2023 Assessment & Plan (08/01/2024 8:50 AM [employer]): Wt Readings from Last 3 Encounters: 08/01/24 [...] 05/01/2023 Assessment & Plan (05/01/2023 6:59 PM [employer]): Acute issues. Patient has slight redness with a small area that looks like there might be a clogged gland or cyst within the medial canthus of the left eye. Exact etiology is unclear. Recommended ophthalmology evaluation and warm compresses Acquired hypothyroidism 10/28/2022 Assessment & Plan (08/01/2024 8:51 AM [employer]): - chronic condition - status: well controlled [...] results Assessment & Plan (05/01/2023 6:52 PM [employer]): Chronic. Relatively euthyroid. Continue levothyroxine. Adjust as needed Nicotine dependence with current use 10/28/2022 Assessment & Plan (08/01/2024 8:54 AM [employer]): Social History Tobacco Use Smoking Status Every [...] riskss Assessment & Plan (05/01/2023 6:53 PM [employer]): Chronic. Patient reports he has cut back some. Counseled to quit. Reviewed health risk Essential (primary) hypertension 02/24/2022 Assessment & Plan (08/01/2024 8:51 AM [employer]): Blood Pressure Management BP Readings from Last [...] discussed Assessment & Plan (05/01/2023 6:52 PM [employer]): Chronic. HTN controlled. Cont prescription Rx. Low sodium diet (DASH or Mediterranean), exercise, wt loss (if over weight) discussed Hypercholesterolemia 02/24/2022 Assessment & Plan (08/01/2024 8:53 AM [employer]): - chronic condition - status: is adequately [...] again Assessment & Plan (05/01/2023 6:52 PM [employer]): Chronic. Tolerates medication. Patient reports fair compliance with medication. Check and adjust as needed. LDL goal less than 70 Coronary artery disease invo lving saxman coronary artery of saxman heart without angina pectoris 02/24/2022 Assessment & Plan (11/23/2023 2:59 PM CDT): Chronic. Stable. Asymptomatic. Continue risk factor modfication with ASA, statin BP control. Counseled to quit smoking Assessment & Plan (05/01/2023 6:52 PM [employer]): Chronic. Continue risk factor modification with high intensity cholesterol medication, blood pressure control, aspirin Primary insomnia 02/24/2022 Assessment & Plan (08/01/2024 8:52 AM [employer]): - chronic condition, worse - has been out of his medication for months - restart Trazodone 150 mg nightly, script sent in Assessment & Plan (11/23/2023 2:59 PM CDT): Chronic. Controlled. Continue trazodone Assessment & Plan (05/01/2023 6:52 PM [employer]): Chronic. Work on sleep hygiene. Continue can trazodone Resolved Problems Problem Noted Date Diagnosed Date Resolved Date Conjunctival lesion 10/03/2023 08/02/19 Cicatricial ectropion of left lower eyelid 08/30/2023 08/01/2024 Lesion of conjunctiva 08/30/20232024 Cervicalgia 02/24/2022 08/01/2024 Encounters Date Type Department Care Team Description 08/05/2024 Telephone [facility] Primary Care at [address] [place] [address] Derick Clemente MD Medical Question/Miscellaneous 08/01/2024 8:30 AM [employer] Office Visit [facility] Primary Care at [address] [phone] Derick Clemente MD Preventative health [...] abdominal aortic aneurysm from Last 3 Months Immunizations Immunization Administration Dates Next Due Influenza, Quad, Adjuvantate d, Intramuscular 06/08/2021 Influenza, Quadrivalent, Hig h Dose, Preservative Free, Intrr 05/01/2023,06/01/2022 Influenza, Unspecified 08/01/2024(Deferr ed: Patient Refused),05/29/2023(Deferred: Patient Refused) Surgical History Surgery Date Site/Laterality Comments APPENDECTOMY 1980s LUMBAR DISC SURGERY 05/29/2012 - 05/28/2013 Right L4-5 Foraminotomy and Removal of Synovial cyst and Microdiscectomy CORONARY STENT PLACEMENT 05/29/2000 - 05/28/2001 1 stent ECTROPION REPAIR 10/09/2023 Left Left repair cicatricial (Left: Eye) GRAFT SKIN FULL THICKNESS (Left: Eye) Medical History Medical History Date Comments Hx Other Medical 2004 TIA Hypertension High cholesterol Insomnia CAD (coronary artery disease) Hypothyroidism Family History Medical History Relation Name Comments Coronary artery disease Father Wilber nary Artery Bypass Graft; Hyperlipidemia Father Hypertension Father Lung cancer Mother smoker Coronary artery disease Sister 2 Wilber nary Artery Disease; Anesthesia problems Neg Hx Colon cancer Neg Hx Relation Name Status Comments Father Mother Sister 1 Alive Sister 2 Social History Tobacco Use Types Packs/Day Years [...] on file Legal Sex Male 2:41 AM [employer] Gender Identity Not on file Sexual Orientation Not on file Obstetrics History Last Filed Vital Signs Vital Sign Reading Time Taken Comments Blood Pressure 132/84 08/01/2024 8:31 AM [employer] Pulse 80 08/01/2024 8:31 AM [employer] Temperature 36.8 C (98.2 F) 08/01/2024 8:31 AM [employer] Respiratory Rate 20 04/26/2024 2:30 PM [employer] Oxygen Saturation 98% 08/01/2024 8:31 AM [employer] Inhaled Oxygen Concentration - - Weight 96.3 kg (212 lb 6.4 oz) 08/01/2024 8:31 A M [employer] Height 172.7 cm (5' 8 ) 08/01/2024 8:31 AM [employer] Body Mass Index 32.3 08/01/2024 8:31 AM [employer] Plan of Treatment Health Maintenance Due Date Last Done Comments Colon Cancer Screening-DNA Stool 1954 DTaP/Tdap/Td Vaccine (1 - Tdap) 1965 Hepatitis B Screening 1972 Pneumococcal vaccine 65+ (1 of 2 - PCV) 1973 Lung Cancer Screening 2004 Zoster Vaccine (1 of 2) 2004 Abdominal Aortic Aneurysm (AAA) Screen 2019 Covid-19 Vaccine ( season) 2024 06/08/2021, 08/28/2020, 08/07/2020 Influenza Vaccine (#1) 2024 , 06/01/2022, 06/08/2021 Postponed from 01/28/2024 (Patient declined, but will receive in the future) Depression Screening 08/01/2025 08/01/2024, 11/23/2023, 05/01/2023, Additional history exists Fall Risk Assessment 08/01/2025 08/01/2024, 10/09/2023, 05/01/2023, Additional history exists Well Visit 65+ 08/01/2025 08/01/2024, 08/2022, 06/01/2022 Hepatitis C Screening Completed 06/02/2022 Prostate Cancer Screening-PSA Discontinued 12/26/2023, 06/02/2022 Medical Devices Implanted Type Area Group Work Program Director Device Identifier Shelf Expiration Date Model / Serial / Lot Cardiac Stent X 1 N/A: Heart Procedures Procedure Name Priority Date/Time Associated Diagnosis Comments PSA SCREEN Routine 12/26/2023 8:25 AM CDT Annual physical exam BPH without urinary obstruction HEPATITIS C ANTIBODY Routine 06/02/2022 8:14 AM [employer] Encounter for hepatitis C screening test for [...] LAB BLOOD ORDERABLES F inal Result [facility] [id number] Department [place] [address] * Hepatitis C antibody (06/02/2022 8:14 AM [employer]) Hep C Ab Nonreactive Nonreactive [facility] [...] revised on 2019. Blood 06/02/2022 8:14 AM [employer] 06/02/2022 3:36 PM [employer] Balbina Be MD LAB MICROBIOLOGY - GEN ERAL ORDERABLES Final Result Performing Organization Address City/State/[place] [phone] [facility] Department [place] [address] from Last 3 Months or Most Recently Relevant to Health Maintenance Insurance MEDICARE [facility] MEDICARE [facility] MEDICARE [employer] MEDICARE SUPPLEMENT MEDICARE [facility] Care Teams Assistant Track Coach Relationship Specialty Start Date End Date Derick Clemente MD [address] [place] [address] DR PEDRO CRAWFORD [address] [place] [id number] PCP - General Family Medicine 08/01/24 Endy Carrero MD [address] [place] [address] Referring Physician Plastic Surgery 06/01/22
--- NOTE | 2024-08-08 16:44 | PC.NURSE ---
2 RN assist to assess pt mobility. pt unable to ambulate, pt was unable to get to the edge of the bed to stand, pt was unsteady and could not even take 1 step. EDP aware, no new orders at this time RN called for care coordination consul
--- NOTE | 2024-08-08 17:25 | ECG_ITS ---
Test Date: 2024-08-08 17:45:17 Measurements Intervals [place] Rate: 98 P: 76 SD: 150 QRS: 43 QRSD: 89 T: 72 QT: 358 QTc: 459 Interpretive Statements SINUS RHYTHM WITH SINUS ARRHYTHMIA POSSIBLE LEFT ATRIAL ENLARGEMENT [-0.1mV P-WAVE IN V1/V2] POSSIBLE RIGHT VENTRICULAR CONDUCTION DELAY [RSR (QR) IN V1/V2] MILD ST DEPRESSION BASELINE ARTIFACT LIMITS INTERPRETATION No previous ECG available for comparison Electronically Signed On 08-09-2024 16:47:57 CDT by Jeimy Toscano M.D.
[2024-08-08 17:49] LABS: Basophils Percent Auto 0.3 % (0.2-1.2); Eosinophils Percent Auto 0.1 % (0-4.4); Hematocrit 36.6 % (42.0-52.0); Hemoglobin 12.4 g/dL (14.0-18.0); Immature Granulocyte Absolute 0.04 K/mm3 (0.00-0.031); Immature Granulocyte Percent A 0.3 % (0-0.5); Lymphocytes Absolute Auto 1.11 K/mm3 (0.9-3.2); Lymphocytes Percent Auto 8.9 % (18.3-44.2); Mean Corpuscular HGB Conc 33.9 g/dl (32-36); Mean Corpuscular Hemoglobin 30.8 pg (26-34); Mean Corpuscular Volume 90.8 fl (80-100); Mean Platelet Volume 10.3 fl (7.4-10.4); Monocytes Absolute Auto 1.1 K/mm3 (0.1-0.6); Monocytes Percent Auto 8.5 % (2.6-8.5); Neutrophils Absolute Auto 10.2 K/mm3 (1.3-6.7); Neutrophils Percent Auto 81.9 % (45.5-73.1); Platelet Count Result 202 k/mm3 (150-375); Red Blood Count 4.03 M/mm3 (4.6-6.20); Red Cell Distribution Width 13.6 % (11.5-14.5); White Blood Count 12.5 K/mm3 (4.5-10.0)
--- NOTE | 2024-08-08 17:52 | ECG_ITS ---
Test Date: 2024-08-08 18:00:47 Measurements Intervals [place] Rate: 96 P: 66 [place]: 146 QRS: 48 QRSD: 92 T: 58 QT: 372 QTc: 472 Interpretive Statements SINUS RHYTHM WITH PACS POSSIBLE LEFT ATRIAL ENLARGEMENT POSSIBLE RIGHT VENTRICULAR CONDUCTION DELAY Compared to ECG 08/08/2024 17:45:17 No significant changes Electronically Signed On 08-09-2024 16:49:00 CDT by Jeimy Toscano M.D.
[2024-08-08 18:00] LABS: Alanine Aminotransferase 32 U/L (6-50); Albumin Level 3.7 g/dL (3.5-5.1); Alkaline Phosphatase 107 U/L (38-126); Anion Gap 9 mmol/L (4-12); Aspartate Amino Transferase 32 U/L (17-59); Bilirubin,Total 1.9 mg/dL (0.2-1.3); Blood Urea Nitrogen 21 mg/dL (9-20); Calcium 7.6 mg/dL (8.4-10.2); Carbon Dioxide 31 mmol/L (22-30); Chloride 98 mmol/L (98-107); Estimated CRCL calculation 63 ml/min; Estimated Glomerular Filt Rate > 60; Glucose 114 mg/dL (65-110); Potassium 3.2 mmol/L (3.4-5.0); Sodium 138 mmol/L (137-145)
[2024-08-08 18:25] LABS: Influenza A QL RT-PCR Negative (Negative); Influenza B QL RT-PCR Negative (Negative); RSV RNA, RT-PCR Negative (Negative); SARS-CoV-2 RNA PCR Negative (Negative)
[2024-08-08 18:37] LABS: Add Urine Microscopic? YES; Appearance Urine Clear (Clear); Bacteria Urine None Seen /hpf; Bilirubin Urine 1+ (Negative); Blood Urine Negative (Negative); Color Urine Dark Yellow (Yellow); Glucose Urine UA Negative (Negative); Ketones Urine Negative (Negative); Leukocyte Esterase Ur Negative LEU/UL (Negative); Nitrate Urine Negative (Negative); Non Pathogenic Casts 0-2; Protein Urine 1+ mg/dL (Negative); RBC Urine 0-2 /hpf (0-2); Specific Grav Ur 1.019 (1.001-1.035); Squamous Epithelial Cell Urine Occasional /hpf (Few); WBC Urine 0-5 /hpf (0-3); pH Urine 5.5 (5.0-9.0)
[2024-08-08] MEDS: POTASSIUM CHLORIDE 20 MEQ PACKET (FOR LIQUID) 40 MEQ PO (18:51)
[2024-08-08] MEDS: ACETAMINOPHEN 500 MG TABLET 1000 MG PO (19:48)
--- NOTE | 2024-08-08 22:51 | ADMGEN ---
This patient, Joni Garrido, was admitted to Medical Room 341-01. Patient/family oriented to hospital policies and general routines including ID bracelet, bed and alarms, visiting hours, pain management, procedures, bathroom and other care routines, personal items, smoking policy, room service/diet, and visiting hours. Information on how to activate the Rapid Response Team has been discussed. Patient/Family are encouraged to report perceived risks to care and to ask questions if they do not understand what they are told or what they should do.
--- NOTE | 2024-08-08 23:21 | P.HP_ITS ---
H&P: HPI History of Present Illness Date/Time: 08/08/24 23:21 Chief Complaint: Left ankle pain Narrative: This is a 69-year-old male with a significant past medical history of hypothyroidism, arthritis, hypertension, hyperlipidemia, CVA who presented to the hospital with complaints of left ankle and left shoulder pain. He states that he had a ground level fall 4 days ago on Monday night after he took 2 doses of his muscle relaxer and trazodone causing him to feel dizzy and fall to the ground. He had shoulder pain for those four days but the left ankle started hurting today and was unable to bear weight on it. That prompted him to come in for further evaluation. Workup in the hospital included a cervical spine CT which was negative for fracture, showed severe cervical spondylosis, cervical dextroscoliosis and kyphosis. Head CT was negative for any acute intracranial hemorrhage, mass or infarct, shown atrophy and chronic white matter changes. Left ankle x-ray showed hetero trophic ossification distal to medial and lateral malleoli, likely chronic no specific evidence of acute fracture, there was ankle soft tissue swelling noted on the x-ray. left shoulder x-ray showed polyarticular osteoarthritis. Initial labs showed a white blood cell count of 12.5, hemoglobin 12.4, potassium 3.2, total bili 1.9. UA was obtained which showed 1+ urine protein, 1+ urine bili, 2.0 urine urobilinogen. respiratory panel was negative for influenza a, influenza B, RSV, COVID. EKG showed sinus rhythm with sinus arrhythmia with a rate of 96, QTC 472. Patient was given 40 mEq of potassium, [place], Tylenol while in the ED. he was also showed how to use crutches however had issues while in the ED with weight-bearing on his left ankle and was not able to help him get off of the stretcher. He is being admitted for observation and PT/ OT evaluation as it was deemed not safe to send home at this time. Review of Systems Review of Systems: All systems reviewed & are unremarkable except as noted in HPI and below PMFSH Past Medical History Medical History Hypothyroidism Arthritis Hypertension Hyperlipidemia CVA (cerebral vascular accident) Surgical History Surgical History H/O Spinal surgery History of appendectomy Family History Family History Sibling Family history of cardiovascular disease Other Diabetes mellitus Social History Social History Smoking packs per day: 1 Smoking cigarettes per day: 20.0 Smoking status: Current every day smoker Tobacco type: cigarettes Alcohol intake: never Substance use: never Substance use type: does not use Do You Feel Safe in your Home?: Yes Lack of Transportation: YES Lack of Food: Never True Current Housing: I Have Housing Concerned About Future Housing: No Difficulty Paying Gas/Electric Bills: No Difficulty Paying for Meds: No Currently Unemployed: No Education: Decline to Answer Difficulty w/ Childcare or Family Care: No Gender identity (if verbalized by the patient): Male Spiritual care concerns: No Meds Home Medications and Allergies Home Medications ?Medication ?Instructions ?Recorded ?Confirmed ?Type amlodipine 10 mg tablet 10 mg PO DAILY 11/12/20 08/08/24 History irbesartan 150 mg tablet 150 mg PO DAILY 11/12/20 08/08/24 History lisinopril 20 1 tablet PO DAILY 11/12/20 08/08/24 History mg-hydrochlorothiazide 12.5 mg tablet magnesium oxide 400 mg (241.3 mg 400 mg PO BID 11/12/20 08/08/24 History magnesium) tablet rosuvastatin 10 mg tablet 10 mg PO DAILY 11/12/20 08/08/24 History aspirin 81 mg chewable tablet 81 mg PO DAILY 08/08/24 08/08/24 History cyclobenzaprine 10 mg tablet 10 mg PO BID PRN muscle spasm 08/08/24 08/08/24 History esomeprazole magnesium 20 mg 20 mg PO DAILY 08/08/24 08/08/24 History tablet,delayed release (Nexium 24HR) levothyroxine 75 mcg tablet 75 mcg PO DAILY 08/08/24 08/08/24 History trazodone 150 mg tablet 150 mg PO QHS 08/08/24 08/08/24 History Allergies Allergy/AdvReac Type Severity Reaction Status Date / Time No Known Allergies Allergy Verified 08/08/24 11:52 Vital Signs Vital Signs - 24 hr 08/08/24 11:28 08/08/24 12:02 08/08/24 12:59 Temperature 97.6 F Pulse Rate 98 95 97 Respiratory Rate 18 16 18 Blood Pressure 136/73 120/66 125/77 Pulse Oximetry 95 95 96 Oxygen Delivery Room Air 08/08/24 15:08 08/08/24 15:33 08/08/24 17:54 Temperature 99.4 F Pulse Rate 96 93 98 Respiratory Rate 20 20 20 Blood Pressure 149/90 H 140/88 148/78 H Pulse Oximetry 92 92 94 Oxygen Delivery 08/08/24 18:53 08/08/24 21:14 08/08/24 22:28 Temperature 99.8 F H 100.0 F H Pulse Rate 108 H 101 H 98 Respiratory Rate 20 19 16 Blood Pressure 142/75 H 124/69 133/63 Pulse Oximetry 96 97 97 Oxygen Delivery 08/08/24 22:47 Temperature 98.4 F Pulse Rate 95 Respiratory Rate 18 Blood Pressure 114/58 L Pulse Oximetry 93 Oxygen Delivery Exam Narrative: General: In no acute distress, well nourished Head: atraumatic, no encephalopathy Eyes: PERRLA, sclera clear ENT: moist mucous membranes, nasal passages clear Neck: supple, no JVD, no adenopathy, trachea midline Cardiac: Normal S1 and S2. RRR, No murmur, gallops or friction rubs, peripheral pulses intact. Respiratory: Expiratory wheezing and mild Rhonchi noted, no other adventitious lung sounds, currently on room air Gastrointestinal: soft, non-distended, non-tender, normoactive bowel sounds. : voiding without difficulty. Extremities: moves all extremities well,mild edema left ankle Skin: clean, dry, intact. No wounds or lesions. Neuro: Alert and oriented x4, cranial nerves intact, no neuro deficits. Psych: normal mood, normal affect, interactive H&P: Results Labs Labs: Short CBC 08/08/24 Range/Units 17:43 WBC 12.5 H (4.5-10.0) K/mm3 Hgb 12.4 L (14.0-18.0) g/dL Hct 36.6 L (42.0-52.0) % Plt Count 202 (150-375) k/mm3 [facility] 08/08/24 17:43 Sodium 138 Potassium 3.2 L Chloride 98 Carbon Dioxide 31 H BUN 21 H Creatinine 1.11 Glucose 114 H Calcium 7.6 L Liver Function 08/08/24 Range/Units 17:43 Total Bilirubin 1.9 H (0.2-1.3) mg/dL AST 32 (17-59) U/L ALT 32 (6-50) U/L Alkaline Phosphatase 107 (38-126) U/L Albumin 3.7 (3.5-5.1) g/dL Urine 08/08/24 Range/Units 17:43 Urine Color Dark yellow (Yellow) Urine Appearance Clear (Clear) Urine pH 5.5 (5.0-9.0) Ur Specific [place] 1.019 (1.001-1.035) Urine Protein 1+ H (Negative) mg/dL Urine Glucose (UA) Negative (Negative) mg/dL Imaging cervical spine CT: Radiologist's impression: EXAMINATION: CT cervical spine wo con DATE: 08/08/2024 13:23 INDICATION: Neck injury. Fall. TECHNIQUE: Computed tomography (CT) of the cervical spine was performed without intravenous contrast. Automated exposure control and iterative reconstruction technique were employed. The dose-length product was 401.12 mGy-cm. COMPARISON: None FINDINGS: There is kyphosis of cervical spine. There is 10 degrees dextroscoliosis of cervical spine. There is 3 mm anterolisthesis of C3 on C4 and C4 on C5. Vertebral body heights are normal. There is mildly decreased disc height at C2-C3, moderately decreased disc height at C3-C4, mildly decreased disc height at C4-C5, and severely decreased disc height at C5-C6 and C6-C7. The following disc levels are specifically discussed: C2-C3: There is severe right and mild left uncovertebral joint osteoarthritis. There is severe bilateral facet joint osteoarthritis. There is mild bilateral neural foraminal stenosis. There is mild central canal stenosis. C3-C4: There is mild right and severe left uncovertebral joint osteoarthritis. There is severe bilateral facet joint osteoarthritis. There is mild right and moderate left neural foraminal stenosis. There is mild central canal stenosis. C4-C5: There is mild right and severe left uncovertebral joint osteoarthritis. There is severe bilateral facet joint osteoarthritis. There is mild left neural foraminal stenosis. There is mild central canal stenosis. C5-C6: There is severe bilateral uncovertebral joint osteoarthritis. There is severe bilateral facet joint osteoarthritis. There is mild bilateral neural foraminal stenosis. There is mild central canal stenosis. C6-C7: There is severe bilateral uncovertebral joint osteoarthritis. There is mild right and severe left facet joint osteoarthritis. There is mild right neural foraminal stenosis. There is mild central canal stenosis. C7-T1: There is no uncovertebral joint osteoarthritis. There is mild right and moderate left facet joint osteoarthritis. There is mild left neural foraminal stenosis. There is no central canal stenosis. IMPRESSION: 1. No fracture 2. Severe cervical spondylosis. 3. Cervical dextroscoliosis and kyphosis. Reviewed, dictated and finalized at location B. CT scan - head: Radiologist's impression: CT head without contrast Indication: Head injury Technique: Serial scans were obtained through the brain without the administration of contrast. Dose reduction technique was used on this scan by utilizing automated exposure control and iterative reconstruction technique. The dose-length product (DLP) was 605.33 mGy-cm. Findings: There is no evidence of intracranial hemorrhage, mass lesion, or acute infarct. The ventricles and subarachnoid spaces are dilated, consistent with mild atrophy. Low attenuation regions are seen within the periventricular white matter bilaterally, likely representing changes from chronic microvascular ischemic disease. There is no evidence of edema, mass effect or midline shift. The visualized paranasal sinuses and mastoid air cells are clear. Impression: No intracranial hemorrhage, mass, or acute infarct. Atrophy and chronic white matter changes, as above. Reviewed, dictated and finalized at location M. left ankle x-ray: Radiologist's impression: EXAMINATION: XR ankle LT min 3V DATE: 08/08/2024 13:39 INDICATION: Left ankle injury. Fall. TECHNIQUE: 4 views of left ankle were obtained. COMPARISON: None. FINDINGS: Alignment is normal. No fracture. There is mild midfoot osteoarthritis. There is heterotopic ossification distal to medial and lateral malleoli, likely chronic. There are enthesophytes at the posterior and plantar aspects of calcaneal tuberosity. There is ankle soft tissue swelling. IMPRESSION: 1. Heterotopic ossification distal to medial and lateral malleoli, likely chronic. No specific evidence of acute fracture. Reviewed, dictated and finalized at location B. left shoulder x-ray: Radiologist's impression: EXAMINATION: XR shoulder LT min 2V DATE: 08/08/2024 13:39 INDICATION: Left shoulder injury. Fall. TECHNIQUE: 4 views of left shoulder were obtained. COMPARISON: None. FINDINGS: Alignment is normal. No fracture. There is mild osteoarthritis of glenohumeral joint and moderate osteoarthritis of acromioclavicular joint. IMPRESSION: 1. Polyarticular osteoarthritis. Reviewed, dictated and finalized at location B. Assessment and Plan Assessment and plan (1) Fall from ground level: Code(s): W18.30XA - Fall on same level, unspecified, initial encounter Status: Acute Assessment and Plan: Patient sustained a ground level fall after taking muscle relaxers and trazodone, became dizzy falling on his left side and twisting his left ankle. * Crutch training * PT and OT ordered (2) Left ankle sprain: Code(s): S93.402A - Sprain of unspecified ligament of left ankle, initial encounter Status: Acute Assessment and Plan: * left ankle x-ray showing heterotrophic ossification distal to medial and lateral malleoli likely chronic, no specific evidence of acute fracture however there was noted ankle soft tissue swelling. * Ice and elevate * Michele wrap for support * will need crutch training * PT and OT ordered * continue pain control (3) Left shoulder pain: Code(s): M25.512 - Pain in left shoulder Status: Acute Assessment and Plan: * left shoulder x-ray shown polyarticular osteoarthritis * continue pain control (4) Generalized weakness: Code(s): R53.1 - Weakness Status: Acute Assessment and Plan: * PT and OT ordered * Will need crutch training (5) Hyperlipidemia: Code(s): E78.5 - Hyperlipidemia, unspecified Status: Acute Assessment and Plan: * continue aspirin and rosuvastatin (6) Hypertension: Code(s): I10 - Essential (primary) hypertension Status: Acute Assessment and Plan: * blood pressures ranging 114/58 to 149/90 * continue lisinopril, amlodipine, hydrochlorothiazide,and Avapro (7) Hypothyroidism: Code(s): E03.9 - Hypothyroidism, unspecified Status: Acute Assessment and Plan: * continue Synthroid Quality VTE Prophylaxis VTE prophylaxis: mechanical ordered Hospitalist [facility] Advance Care Plan I have confirmed that the patient's Advanced Care Plan is present, code status is documented, or surrogate decision maker is listed in patient medical record.: Yes Medication Reconciliation I have utilized all available resources to obtain, update and review the pat ients current medications (includes all prescriptions, OTC, herbals, cannabis, and nutritional supplements).: Yes
[2024-08-09 04:57] VITALS: BP 152/79; PULSE 97; RESP 17; TEMP 36.8; O2SAT 92
[2024-08-09 05:39] LABS: Basophils Absolute Auto 0.1 K/mm3 (0.0-0.1); Basophils Percent Auto 0.5 % (0.2-1.2); Eosinophils Absolute Auto 0.1 K/mm3 (0-0.3); Eosinophils Percent Auto 0.6 % (0-4.4); Hemoglobin 11.6 g/dL (14.0-18.0); Immature Granulocyte Absolute 0.06 K/mm3 (0.00-0.031); Immature Granulocyte Percent A 0.5 % (0-0.5); Lymphocytes Absolute Auto 0.97 K/mm3 (0.9-3.2); Lymphocytes Percent Auto 7.7 % (18.3-44.2); Mean Corpuscular HGB Conc 33.1 g/dl (32-36); Mean Corpuscular Hemoglobin 30.4 pg (26-34); Mean Corpuscular Volume 91.6 fl (80-100); Mean Platelet Volume 10.4 fl (7.4-10.4); Monocytes Absolute Auto 1.2 K/mm3 (0.1-0.6); Monocytes Percent Auto 9.4 % (2.6-8.5); Neutrophils Absolute Auto 10.2 K/mm3 (1.3-6.7); Neutrophils Percent Auto 81.3 % (45.5-73.1); Platelet Count Result 196 k/mm3 (150-375); Red Blood Count 3.82 M/mm3 (4.6-6.20); Red Cell Distribution Width 13.6 % (11.5-14.5); White Blood Count 12.5 K/mm3 (4.5-10.0)
[2024-08-09] MEDS: LEVOTHYROXINE SODIUM 75 MCG TABLET PO (05:42)
[2024-08-09 05:50] LABS: Alanine Aminotransferase 30 U/L (6-50); Albumin Level 3.5 g/dL (3.5-5.1); Alkaline Phosphatase 106 U/L (38-126); Anion Gap 10 mmol/L (4-12); Aspartate Amino Transferase 30 U/L (17-59); Bilirubin,Total 1.8 mg/dL (0.2-1.3); Blood Urea Nitrogen 21 mg/dL (9-20); Calcium 7.6 mg/dL (8.4-10.2); Carbon Dioxide 28 mmol/L (22-30); Chloride 98 mmol/L (98-107); Estimated CRCL calculation 63 ml/min; Estimated Glomerular Filt Rate > 60; Glucose 104 mg/dL (65-110); Potassium 3.2 mmol/L (3.4-5.0); Sodium 136 mmol/L (137-145)
[2024-08-09 08:30] VITALS: O2SAT 95
[2024-08-09] MEDS: ROSUVASTATIN 10 MG TABLET PO (09:11)
[2024-08-09] MEDS: MAGNESIUM OXIDE 400 MG TABLET PO ×2 (09:11→17:05)
[2024-08-09] MEDS: hydroCHLOROthiazide 12.5 MG CAPSULE PO (09:12)
[2024-08-09] MEDS: ASPIRIN 81 MG CHEWABLE TABLET PO (09:12)
[2024-08-09] MEDS: amLODIPine BESYLATE 10 MG TABLET PO (09:12)
[2024-08-09] MEDS: IRBESARTAN 150 MG TABLET PO (09:12)
[2024-08-09] MEDS: lisinopriL 20 MG TABLET PO (09:12)
--- NOTE | 2024-08-09 10:47 | P.PNIM_ITS ---
Progress Note: A&P Assessment and Plan (1) Fall from ground level: Code(s): W18.30XA - Fall on same level, unspecified, initial encounter Status: Acute Assessment and Plan: Patient sustained a ground level fall after taking muscle relaxers and trazodone, became dizzy falling on his left side and twisting his left ankle. * Crutch training * PT and OT ordered (2) Left ankle sprain: Code(s): S93.402A - Sprain of unspecified ligament of left ankle, initial encounter Status: Acute Assessment and Plan: * left ankle x-ray showing heterotrophic ossification distal to medial and lateral malleoli likely chronic, no specific evidence of acute fracture howeve r there was noted ankle soft tissue swelling. * Ice and elevate * Michele wrap for support * will need crutch training * PT and OT ordered * continue pain control (3) Left shoulder pain: Code(s): M25.512 - Pain in left shoulder Status: Acute Assessment and Plan: * left shoulder x-ray shown polyarticular osteoarthritis * continue pain control (4) Generalized weakness: Code(s): R53.1 - Weakness Status: Acute Assessment and Plan: * PT and OT ordered * Will need crutch training * care coordination following (5) Hyperlipidemia: Code(s): E78.5 - Hyperlipidemia, unspecified Status: Acute Assessment and Plan: * continue aspirin and rosuvastatin (6) Hypertension: Code(s): I10 - Essential (primary) hypertension Status: Acute Assessment and Plan: * blood pressures ranging 114/58 to 149/90 * continue lisinopril, amlodipine, hydrochlorothiazide,and Avapro (7) Hypothyroidism: Code(s): E03.9 - Hypothyroidism, unspecified Status: Acute Assessment and Plan: * continue Synthroid Plan trend and replace electrolytes- k 3.2, mg 1 Time Spent With Patient Time with patient: 25 - 35 minutes Subjective Date/time seen: 08/09/24 10:47 Interval history: Left ankle pain This is a 69-year-old male with a significant past medical history of hypothyroidism, arthritis, hypertension, hyperlipidemia, CVA who presented to the hospital with complaints of left ankle and left shoulder pain. He states that he had a ground level fall 4 days ago on Monday night after he took 2 doses of his muscle relaxer and trazodone causing him to feel dizzy and fall to the ground. He had shoulder pain for those four days but the left ankle started hurting today and was unable to bear weight on it. That prompted him to come in for further evaluation. Workup in the hospital included a cervical spine CT which was negative for fracture, showed severe cervical spondylosis, cervical dextroscoliosis and kyphosis. Head CT was negative for any acute intracranial hemorrhage, mass or infarct, shown atrophy and chronic white matter changes. L eft ankle x-ray showed hetero trophic ossification distal to medial and lateral malleoli, likely chronic no specific evidence of acute fracture, there was ankle soft tissue swelling noted on the x-ray. left shoulder x-ray showed polyarticular osteoarthritis. Initial labs showed a white blood cell count of 12.5, hemoglobin 12.4, potassium 3.2, total bili 1.9. UA was obtained which showed 1+ urine protein, 1+ urine bili, 2.0 urine urobilinogen. respiratory panel was negative for influenza a, influenza B, RSV, COVID. EKG showed sinus rhythm with sinus arrhythmia with a rate of 96, QTC 472. Patient was given 40 mEq of potassium, [place], Tylenol while in the ED. he was also showed how to use crutches however had issues while in the ED with weight-bearing on his left ankle and was not able to help him get off of the stretcher. He is being admitted for observation and PT/ OT evaluation as it was deemed not safe to send home at this time. Pt is seen and examined. PT/OT eval ordered. Nicotine patch ordered. Pt is c/o gerd like symptoms tis am. pt is calm and comfortable, voices no acute complains. Review of Systems Review of Systems: All systems reviewed & are unremarkable except as noted in HPI and below Exam Narrative: General: In no acute distress, well nourished Head: atraumatic, no encephalopathy Eyes: PERRLA, sclera clear ENT: moist mucous membranes, nasal passages clear Neck: supple, no JVD, no adenopathy, trachea midline Cardiac: Normal S1 and S2. RRR, No murmur, gallops or friction rubs, peripheral pulses intact. Respiratory: Expiratory wheezing and mild Rhonchi noted, no other adventitious lung sounds, currently on room air Gastrointestinal: soft, non-distended, non-tender, normoactive bowel sounds. : voiding without difficulty. Extremities: moves all extremities well,mild edema left ankle Skin: clean, dry, intact. No wounds or lesions. Neuro: Alert and oriented x4, cranial nerves intact, no neuro deficits. Psych: normal mood, normal affect, interactive Objective Data Vital Signs Vital Signs: Vital Signs - 24 hr 08/08/24 11:28 08/08/24 12:02 08/08/24 12:59 Temperature 97.6 F Pulse Rate 98 95 97 Respiratory Rate 18 16 18 Blood Pressure 136/73 120/66 125/77 Pulse Oximetry 95 95 96 Oxygen Delivery Room Air 08/08/24 15:08 08/08/24 15:33 08/08/24 17:54 Temperature 99.4 F Pulse Rate 96 93 98 Respiratory Rate 20 20 20 Blood Pressure 149/90 H 140/88 148/78 H Pulse Oximetry 92 92 94 Oxygen Delivery 08/08/24 18:53 08/08/24 21:14 08/08/24 22:28 Temperature 99.8 F H 100.0 F H Pulse Rate 108 H 101 H 98 Respiratory Rate 20 19 16 Blood Pressure 142/75 H 124/69 133/63 Pulse Oximetry 96 97 97 Oxygen Delivery 08/08/24 22:47 08/08/24 23:10 08/09/24 04:57 Temperature 98.4 F 98.2 F Pulse Rate 95 97 Respiratory Rate 18 17 Blood Pressure 114/58 L 152/79 H Pulse Oximetry 93 92 Oxygen Delivery Room Air Intake/Output Intake/Output: Intake & Output 08/06/24 08/07/24 08/08/24 08/09/24 23:59 23:59 23:59 23:59 Intake Total 670 Output Total 210 450 Balance -210 220 Meds/Results Medications: Active Medications Generic Name Dose Route Start Last Admin Trade Name Freq PRN Reason Stop Dose Admin Acetaminophen 650 mg 08/08/24 19:11 Acetaminophen 325 Mg Tablet PO Q4H PRN Mild Pain (1-3) or Fever Hydrocodone Bitart/Acetaminophen 1 tab 08/08/24 19:11 Hydrocodone/Acetaminophen (*Crx) 5-325 Mg Tablet PO Q4H PRN Pain Rated 4-6 Amlodipine Besylate 10 mg 08/09/24 09:00 08/09/24 09:12 Amlodipine Besylate 10 Mg Tablet PO 10 mg DAILY [facility] Administration Aspirin 81 mg 08/09/24 09:00 08/09/24 09:12 Aspirin 81 Mg Chewable Tablet PO 81 mg DAILY [facility] Administration Calcium Carbonate 200 mg 08/09/24 09:35 Calcium Carbonate (Tums) 500 Mg (200 Mg Elemental) PO Q6H PRN Indigestion Cyclobenzaprine HCl 10 mg 08/08/24 23:30 Cyclobenzaprine Hcl 10 Mg Tablet PO BID PRN muscle spasm Hydrochlorothiazide 12.5 mg 08/09/24 09:00 08/09/24 09:12 Hydrochlorothiazide 12.5 Mg Capsule PO 12.5 mg QAM [facility] Administration Irbesartan 150 mg 08/09/24 09:00 08/09/24 09:12 Irbesartan 150 Mg Tablet PO 150 mg DAILY [facility] Administration Levothyroxine Sodium 75 mcg 08/09/24 06:30 08/09/24 05:42 Levothyroxine Sodium 75 Mcg Tablet PO 75 mcg DAILY@0630 [facility] Administration Lisinopril 20 mg 08/09/24 09:00 08/09/24 09:12 Lisinopril 20 Mg Tablet PO 20 mg QAM [facility] Administration Magnesium Oxide 400 mg 08/09/24 09:00 08/09/24 09:11 Magnesium Oxide 400 Mg Tablet PO 400 mg BID [facility] Administration Morphine Sulfate 2 mg 08/08/24 19:11 Morphine Sulfate (*Crx) 2 Mg/Ml Inj IV PUSH Q2H PRN Pain Rated 7-10 Nicotine 1 patch 08/09/24 09:00 Nicotine (*Pbkc) 14 Mg Patch TRANSDERM DAILY [facility] Ondansetron HCl 4 mg 08/08/24 19:11 Ondansetron Inj 4 Mg/2 Ml Vial IV PUSH Q4H PRN Nausea Rosuvastatin Calcium 10 mg 08/09/24 09:00 08/09/24 09:11 Rosuvastatin 10 Mg Tablet PO 10 mg DAILY [facility] Administration Trazodone HCl 150 mg 08/09/24 21:00 Trazodone Hcl 50 Mg Tablet PO QHS [facility] Radiology Results: ITS Impressions Cervical Spine CT 08/08/24 13:28 IMPRESSION: 1. No fracture 2. Severe cervical spondylosis. 3. Cervical dextroscoliosis and kyphosis. Head CT 08/08/24 13:29 Impression: No intracranial hemorrhage, mass, or acute infarct. Atrophy and chronic white matter changes, as above. Ankle X-Ray 08/08/24 13:42 IMPRESSION: 1. Heterotopic ossification distal to medial and lateral malleoli, likely chronic. No specific evidence of acute fracture. Shoulder X-Ray 08/08/24 13:45 IMPRESSION: 1. Polyarticular osteoarthritis. Labs Labs: Laboratory Results - last 24 hr 08/08/24 08/09/24 17:43 05:16 WBC 12.5 H 12.5 H RBC 4.03 L 3.82 L Hgb 12.4 L 11.6 L Hct 36.6 L 35.0 L MCV 90.8 91.6 MCH 30.8 30.4 MCHC 33.9 33.1 RDW 13.6 13.6 Plt Count 202 196 MPV 10.3 10.4 Immature Gran % (Auto) 0.3 0.5 Neut % (Auto) 81.9 H 81.3 H Lymph % (Auto) 8.9 L 7.7 L [place] % (Auto) 8.5 9.4 H Eos % (Auto) 0.1 0.6 Baso % (Auto) 0.3 0.5 Lymph # (Auto) 1.11 0.97 [place] # (Auto) 1.1 H 1.2 H Eos # (Auto) 0.0 0.1 Baso # (Auto) 0.0 0.1 Abs Immat Gran (auto) 0.04 H 0.06 H Absolute Neuts (auto) 10.2 H 10.2 H Absolute Nucleated RBC 0.000 0.000 Nucleated RBC % 0.0 0.0 Sodium 138 136 L Potassium 3.2 L 3.2 L Chloride 98 98 Carbon Dioxide 31 H 28 Anion Gap 9 10 BUN 21 H 21 H Creatinine 1.11 1.09 Estim Creat Clear Calc 63 63 Estimated GFR > 60 > 60 Glucose 114 H 104 Calcium 7.6 L 7.6 L Magnesium 1.0 L Total Bilirubin 1.9 H 1.8 H AST 32 30 ALT 32 30 Alkaline Phosphatase 107 106 Total Protein 7.0 7.0 Albumin 3.7 3.5 Urine Color Dark yellow Urine Appearance Clear Urine pH 5.5 Ur Specific [place] 1.019 Urine Protein 1+ H Urine Glucose (UA) Negative Urine Ketones Negative Ur Blood (Man) Negative Urine Nitrate Negative Urine Bilirubin 1+ H Urine Urobilinogen 2.0 H Leukocyte Esterase Rfl Negative Urine RBC 0-2 Urine WBC 0-5 Ur Squamous Epith Cells Occasional Urine Bacteria None seen Urine Casts 0-2 Influenza A (RT-PCR) Negative Influenza B (RT-PCR) Negative RSV (RT-PCR) Negative SARS-CoV-2 RNA (RT-PCR) Negative Quality VTE Prophylaxis VTE prophylaxis: mechanical ordered
[2024-08-09] MEDS: POTASSIUM CHLORIDE 20 MEQ ER TABLET 40 MEQ PO (13:53)
[2024-08-09] MEDS: NICOTINE (*PBKC) 14 MG PATCH 1 PATCH TRANSDERM (13:53)
[2024-08-09 14:00] VITALS: BP 137/79; PULSE 105; RESP 18; TEMP 36.9; O2SAT 95
--- NOTE | 2024-08-09 14:04 | PCCCNOTE ---
08/08/24 1730: Late entry-Called to the ED for home health referral. Spoke with pt and his and they feel that he is not safe to discharge and that home health therapy was not going to be enough. Spoke with the ED and patient reevaluated and admitted.
[2024-08-09 20:32] VITALS: BP 170/90; PULSE 110; RESP 24; TEMP 37.2; O2SAT 92
[2024-08-09] MEDS: traZODone HCL 50 MG TABLET 150 MG PO (21:05)
[2024-08-09 22:45] VITALS: BP 159/90; PULSE 123; O2SAT 95
[2024-08-09] MEDS: LORazepam INJ (*CRX) 2 MG/ML VIAL 1 MG IV PUSH (23:16)
[2024-08-10] VITALS (7 sets, daily range): BP systolic 146–169; BP diastolic 56–78; PULSE 99–107; RESP 20–22; TEMP 36.8; O2SAT 91–97
[2024-08-10] MEDS: LORazepam INJ (*CRX) 2 MG/ML VIAL IV PUSH (00:35)
[2024-08-10] MEDS: MAGNESIUM SULF 4 GM/WATER100ML 4 GM/100 ML BAG IVPB (00:49)
[2024-08-10] MEDS: CALCIUM GLUC 1,000 MG/NS 50 ML 1,000 MG/50 ML BAG 100 MG IVPB (00:50)
[2024-08-10] MEDS: THIAMINE 500 MG/NS 100 ML 500 MG/100 ML BAG 200 MG IVPB (00:51)
[2024-08-10 01:19] LABS: Lactic Acid Reflex 1.2 mmol/L (0.7-2.0)
[2024-08-10 01:31] LABS: INR 1.1; Prothrombin Time 14.5 Seconds (11.1-14.7)
[2024-08-10 01:32] LABS: Partial Thromboplastin Time 36.2 Seconds (22.3-36.8)
[2024-08-10 01:38] LABS: Procalcitonin 0.3 ng/mL
[2024-08-10 07:22] LABS: Basophils Percent Auto 0.3 % (0.2-1.2); Hematocrit 34.4 % (42.0-52.0); Hemoglobin 11.5 g/dL (14.0-18.0); Immature Granulocyte Absolute 0.08 K/mm3 (0.00-0.031); Immature Granulocyte Percent A 0.5 % (0-0.5); Lymphocytes Absolute Auto 0.74 K/mm3 (0.9-3.2); Lymphocytes Percent Auto 5.1 % (18.3-44.2); Mean Corpuscular HGB Conc 33.4 g/dl (32-36); Mean Corpuscular Hemoglobin 30.3 pg (26-34); Mean Corpuscular Volume 90.8 fl (80-100); Mean Platelet Volume 10.1 fl (7.4-10.4); Monocytes Absolute Auto 1.1 K/mm3 (0.1-0.6); Monocytes Percent Auto 7.8 % (2.6-8.5); Neutrophils Absolute Auto 12.6 K/mm3 (1.3-6.7); Neutrophils Percent Auto 86.3 % (45.5-73.1); Platelet Count Result 225 k/mm3 (150-375); Red Blood Count 3.79 M/mm3 (4.6-6.20); Red Cell Distribution Width 13.7 % (11.5-14.5); White Blood Count 14.6 K/mm3 (4.5-10.0)
[2024-08-10 07:41] LABS: Alanine Aminotransferase 32 U/L (6-50); Albumin Level 3.5 g/dL (3.5-5.1); Alkaline Phosphatase 117 U/L (38-126); Anion Gap 11 mmol/L (4-12); Aspartate Amino Transferase 36 U/L (17-59); Bilirubin,Total 1.4 mg/dL (0.2-1.3); Blood Urea Nitrogen 23 mg/dL (9-20); Calcium 8.3 mg/dL (8.4-10.2); Carbon Dioxide 27 mmol/L (22-30); Chloride 98 mmol/L (98-107); Estimated CRCL calculation 58 ml/min; Estimated Glomerular Filt Rate 60; Glucose 111 mg/dL (65-110); Phosphorus 3.8 mg/dL (2.5-4.5); Potassium 3.3 mmol/L (3.4-5.0); Sodium 136 mmol/L (137-145)
[2024-08-10 07:55] LABS: Ammonia < 9 umol/L (9-30)
[2024-08-10 09:21] LABS: Folic Acid 3.7 ng/mL (2.76->20)
[2024-08-10] MEDS: NICOTINE (*PBKC) 14 MG PATCH 1 PATCH TRANSDERM (10:14)
--- NOTE | 2024-08-10 10:28 | PM.IMPN ---
Progress Note: A&P Assessment and Plan (1) Fall from ground level: Code(s): W18.30XA - Fall on same level, unspecified, initial encounter Status: Acute Assessment and Plan: Patient sustained a ground level fall after taking muscle relaxers and trazodone, became dizzy falling on his left side and twisting his left ankle. Crutch training PT and OT ordered (2) Left ankle sprain: Code(s): S93.402A - Sprain of unspecified ligament of left ankle, initial encounter Status: Acute Assessment and Plan: left ankle x-ray showing heterotrophic ossification distal to medial and lateral malleoli likely chronic, no specific evidence of acute fracture however there was noted ankle soft tissue swelling. Ice and elevate Michele wrap for support will need crutch training PT and OT ordered continue pain control- avoid narcotic pain meds as pt confused now (3) Left shoulder pain: Code(s): M25.512 - Pain in left shoulder Status: Acute Assessment and Plan: left shoulder x-ray shown polyarticular osteoarthritis continue pain control (4) Generalized weakness: Code(s): R53.1 - Weakness Status: Acute Assessment and Plan: PT and OT ordered Will need crutch training care coordination following (5) Hyperlipidemia: Code(s): E78.5 - Hyperlipidemia, unspecified Status: Acute Assessment and Plan: continue aspirin and rosuvastatin (6) Hypertension: Code(s): I10 - Essential (primary) hypertension Status: Acute Assessment and Plan: blood pressures ranging 114/58 to 149/90 continue lisinopril, amlodipine, hydrochlorothiazide,and Avapro (7) Hypothyroidism: Code(s): E03.9 - Hypothyroidism, unspecified Status: Acute Assessment and Plan: continue Synthroid (8) Altered mental state: Code(s): R41.82 - Altered mental status, unspecified Status: Acute Assessment and Plan: worsening of wbc, more confused today chest xray done: Probable focal left basilar atelectasis, possibly pneumonia. Correlate clinically. will treat for pneumonia- rocephin/azithromycin ordered and started on 08/[address] to r/u any new neurological symptoms - close monitoring- fall risk trend labs bc collected- pending neurology consult unable to do MRI today- will do tomorrow tele monitoring Plan trend and replace electrolytes Time Spent With Patient Time with patient: 25 - 35 minutes Subjective Date/time seen: 08/10/24 10:28 Interval history: Left ankle pain This is a 69-year-old male with a significant past medical history of hypothyroidism, arthritis, hypertension, hyperlipidemia, CVA who presented to the hospital with complaints of left ankle and left shoulder pain. He states that he had a ground level fall 4 days ago on Monday night after he took 2 doses of his muscle relaxer and trazodone causing him to feel dizzy and fall to the ground. He had shoulder pain for those four days but the left ankle started hurting today and was unable to bear weight on it. That prompted him to come in for further evaluation. Workup in the hospital included a cervical spine CT which was negative for fracture, showed severe cervical spondylosis, cervical dextroscoliosis and kyphosis. Head CT was negative for any acute intracranial hemorrhage, mass or infarct, shown atrophy and chronic white matter changes. Left ankle x-ray showed hetero trophic ossification distal to medial and lateral malleoli, likely chronic no specific evidence of acute fracture, there was ankle soft tissue swelling noted on the x-ray. left shoulder x-ray showed polyarticular osteoarthritis. Initial labs showed a white blood cell count of 12.5, hemoglobin 12.4, potassium 3.2, total bili 1.9. UA was obtained which showed 1+ urine protein, 1+ urine bili, 2.0 urine urobilinogen. respiratory panel was negative for influenza a, influenza B, RSV, COVID. EKG showed sinus rhythm with sinus arrhythmia with a rate of 96, QTC 472. Patient was given 40 mEq of potassium, [place], Tylenol while in the ED. he was also showed how to use crutches however had issues while in the ED with weight-bearing on his left ankle and was not able to help him get off of the stretcher. He is being admitted for observation and PT/ OT evaluation as it was deemed not safe to send home at this time. Pt is seen and examined. PT/OT eval ordered. Nicotine patch ordered. Pt is c/o gerd like symptoms tis am. pt is calm and comfortable, voices no acute complains. 08/10 intermittent confusion last night and this am. Facial droop and lt arm drift per rn report. Unable to do mri today. will repeat ct to re eval, neauro checks, asa, increase statin dose and neurology consult. Review of Systems Review of Systems: All systems reviewed & are unremarkable except as noted in HPI and below Exam Narrative: General: In no acute distress, well nourished Head: atraumatic, no encephalopathy Eyes: PERRLA, sclera clear ENT: moist mucous membranes, nasal passages clear Neck: supple, no JVD, no adenopathy, trachea midline Cardiac: Normal S1 and S2. RRR, No murmur, gallops or friction rubs, peripheral pulses intact. Respiratory: Expiratory wheezing and mild Rhonchi noted, no other adventitious lung sounds, currently on room air Gastrointestinal: soft, non-distended, non-tender, normoactive bowel sounds. : voiding without difficulty. Extremities: moves all extremities well,mild edema left ankle Skin: clean, dry, intact. No wounds or lesions. Neuro: Alert and oriented x4, cranial nerves intact, no neuro deficits. Psych: normal mood, normal affect, interactive Objective Data Vital Signs Vital Signs: Vital Signs - 24 hr 08/09/24 13:16 08/09/24 13:40 08/09/24 14:00 Temperature 98.4 F Pulse Rate 105 H Respiratory Rate 18 Blood Pressure 137/79 Pulse Oximetry 95 Oxygen Delivery Room Air Room Air 08/09/24 20:00 08/09/24 20:32 08/09/24 22:45 Temperature 99 F Pulse Rate 110 H 123 H Respiratory Rate 24 H Blood Pressure 170/90 H 159/90 H Pulse Oximetry 92 95 Oxygen Delivery Room Air 08/10/24 07:59 Temperature Pulse Rate Respiratory Rate Blood Pressure Pulse Oximetry 92 Oxygen Delivery Room Air Intake/Output Intake/Output: Intake & Output 08/07/24 08/08/24 08/09/24 08/10/24 23:59 23:59 23:59 23:59 Intake Total 910 Output Total 210 1850 Balance -210 -940 Meds/Results Medications: Active Medications Generic Name Dose Route Start Last Admin Trade Name Freq PRN Reason Stop Dose Admin Acetaminophen 650 mg 08/08/24 19:11 Acetaminophen 325 Mg Tablet PO Q4H PRN Mild Pain (1-3) or Fever Hydrocodone Bitart/Acetaminophen 1 tab 08/08/24 19:11 Hydrocodone/Acetaminophen (*Crx) 5-325 Mg Tablet PO Q4H PRN Pain Rated 4-6 Amlodipine Besylate 10 mg 08/09/24 09:00 08/09/24 09:12 Amlodipine Besylate 10 Mg Tablet PO 10 mg DAILY [facility] Administration Aspirin 81 mg 08/09/24 09:00 08/09/24 09:12 Aspirin 81 Mg Chewable Tablet PO 81 mg DAILY [facility] Administration Calcium Carbonate 200 mg 08/09/24 09:35 Calcium Carbonate (Tums) 500 Mg (200 Mg Elemental) PO Q6H PRN Indigestion Cyclobenzaprine HCl 10 mg 08/08/24 23:30 Cyclobenzaprine Hcl 10 Mg Tablet PO BID PRN muscle spasm Folic Acid 1 mg 08/10/24 09:00 Folic Acid 1 Mg Tablet PO DAILY [facility] Hydrochlorothiazide 12.5 mg 08/09/24 09:00 08/09/24 09:12 Hydrochlorothiazide 12.5 Mg Capsule PO 12.5 mg QAM [facility] Administration Ceftriaxone Sodium 1 gm in 50 mls @ 100 mls/hr 08/10/24 10:30 Rocephin 1 Gm/Ns 50 Ml IVPB Q24H [facility] Azithromycin 500 mg in 250 mls @ 250 mls/hr 08/10/24 10:30 Zithromax IVPB Q24H [facility] Irbesartan 150 mg 08/09/24 09:00 08/09/24 09:12 Irbesartan 150 Mg Tablet PO 150 mg DAILY [facility] Administration Levothyroxine Sodium 75 mcg 08/09/24 06:30 08/10/24 06:00 Levothyroxine Sodium 75 Mcg Tablet PO Not Given DAILY@0630 [facility] Lisinopril 20 mg 08/09/24 09:00 08/09/24 09:12 Lisinopril 20 Mg Tablet PO 20 mg QAM [facility] Administration Magnesium Oxide 400 mg 08/09/24 09:00 08/09/24 17:05 Magnesium Oxide 400 Mg Tablet PO 400 mg BID [facility] Administration Morphine Sulfate 2 mg 08/08/24 19:11 Morphine Sulfate (*Crx) 2 Mg/Ml Inj IV PUSH Q2H PRN Pain Rated 7-10 Nicotine 1 patch 08/09/24 09:00 08/10/24 10:14 Nicotine (*Pbkc) 14 Mg Patch TRANSDERM 1 patch DAILY [facility] Administration Ondansetron HCl 4 mg 08/08/24 19:11 Ondansetron Inj 4 Mg/2 Ml Vial IV PUSH Q4H PRN Nausea Rosuvastatin Calcium 10 mg 08/09/24 09:00 08/09/24 09:11 Rosuvastatin 10 Mg Tablet PO 10 mg DAILY [facility] Administration Trazodone HCl 150 mg 08/09/24 21:00 08/09/24 21:05 Trazodone Hcl 50 Mg Tablet PO 150 mg QHS [facility] Administration Radiology Results: ITS Impressions Cervical Spine CT 08/08/24 13:28 IMPRESSION: 1. No fracture 2. Severe cervical spondylosis. 3. Cervical dextroscoliosis and kyphosis. Head CT 08/08/24 13:29 Impression: No intracranial hemorrhage, mass, or acute infarct. Atrophy and chronic white matter changes, as above. Ankle X-Ray 08/08/24 13:42 IMPRESSION: 1. Heterotopic ossification distal to medial and lateral malleoli, likely chronic. No specific evidence of acute fracture. Shoulder X-Ray 08/08/24 13:45 IMPRESSION: 1. Polyarticular osteoarthritis. Chest X-Ray 08/10/24 07:14 Impression: Probable focal left basilar atelectasis, possibly pneumonia. Correlate clinically. Labs Labs: Laboratory Results - last 24 hr 08/10/24 08/10/24 08/10/24 00:48 07:15 07:16 WBC 14.6 H RBC 3.79 L Hgb 11.5 L Hct 34.4 L MCV 90.8 MCH 30.3 MCHC 33.4 RDW 13.7 Plt Count 225 MPV 10.1 Immature Gran % (Auto) 0.5 Neut % (Auto) 86.3 H Lymph % (Auto) 5.1 L [place] % (Auto) 7.8 Eos % (Auto) 0.0 Baso % (Auto) 0.3 Lymph # (Auto) 0.74 L [place] # (Auto) 1.1 H Eos # (Auto) 0.0 Baso # (Auto) 0.0 Abs Immat Gran (auto) 0.08 H Absolute Neuts (auto) 12.6 H Absolute Nucleated RBC 0.000 Nucleated RBC % 0.0 PT 14.5 INR 1.1 APTT 36.2 Sodium 136 L Potassium 3.3 L Chloride 98 Carbon Dioxide 27 Anion Gap 11 BUN 23 H Creatinine 1.20 Estim Creat Clear Calc 58 Estimated GFR 60 Glucose 111 H Lactic Acid 1.2 Calcium 8.3 L Phosphorus 3.8 Total Bilirubin 1.4 H AST 36 ALT 32 Alkaline Phosphatase 117 Ammonia < 9 L Total Protein 7.0 Albumin 3.5 Vitamin B12 302.0 Folate 3.7 Procalcitonin 0.3 Quality VTE Prophylaxis VTE prophylaxis: mechanical ordered
[2024-08-10] MEDS: AZITHROMYCIN 500 MG/NS 250 ML 500 MG/250 ML BAG 250 MG IVPB (12:07)
[2024-08-10] MEDS: HALOPERIDOL LACTATE 5 MG/ML VIAL IM (12:12)
--- NOTE | 2024-08-10 12:15 | PC.NURSE ---
technical product manager called to notify that MRI scanner will be down until at least tomorrow. There will be an technical product manager on tomorrow to complete the order if the machine is fixed. Notified IZABEL Schaffer.
[2024-08-10 12:36] LABS: Alveolar/Arterial O2 Gradient 86.6 mmHg; Base Excess ABG 1.5 mEq/l (+/-2.0); Fractional Inspired Oxygen 28 %; HCO3 ABG 25.1 mEq/l (22.0-26.0); Oxygen Content ABG 16.6 %vol (16.0-22.0); Oxyhemoglobin 92.7 % THb (90.0-100.0); PCO2 ABG 36.2 mmHg (35.0-45.0); PO2 ABG 70.3 mmHg (80.0-100.0); PO2 FiO2 Ratio Arterial Blood 2.51 %; Total Hemoglobin 12.7 g/dL (12.0-18.0); pH ABG 7.459 (7.350-7.450)
[2024-08-10 12:37] LABS: Device NASAL CANNULA; Modified Allen's Test Pass; Site Drawn LEFT RADIAL
--- NOTE | 2024-08-10 13:36 | P.CONNEU_ITS ---
Assessment and Plan Assessment and plan (1) Altered mental state: Code(s): R41.82 - Altered mental status, unspecified Status: Acute (2) Generalized weakness: Code(s): R53.1 - Weakness Status: Acute Plan 1. Chronic pain with recurrent muscle spasm and history of taking the multiple medication at times double dose to overcome the pain and muscle spasms. 2. Gait dysfunction by history secondary to underlying arthritic spine documented previously could very well be superimposed by the long tract involvement and complicated by the pain medication uses. 3. CT scan suggestive of chronic white matter changes and atrophy could very well be related to small- vessel disease. He will benefit from chronic pain therapy, physical therapy and supervision initially could be Placed in the rehab if approved. Consult date: 08/10/24 HPI: Joni Garrido is a 69 year old male Admitted to the hospital through the emergency room for the concerns of left ankle and left shoulder pain with a history of ground level fall 4 days ago on Monday night after he took 2 doses of muscle relaxer and 2 doses of trazodone to help in sleep, he felt dizzy, Fell to the ground, was able to get himself up but over the next several days had pain in his left shoulder and left ankle and finally came to the ER on the day of visit to the ER additionally has history of 1. Hypertension 2. Stroke with no deficit 3. Chronic neck pain for which has been taking trazodone. Prior to the discharge from the ER he complains of increasing difficulties and felt unsafe going home at the time. His medications at the time of admission included 1. Amlodipine 10mg daily 2. irbesartan 150mg daily. 3. Lisinopril 20mg daily and 4. Rosuvastatin 10mg daily. He is not new to allergic to any medications. History of smoking 2 packs per day 1 and currently everyday smoker. On initial evaluation vital signs normal, CT scan the cervical spine with severe cervical spondylosis and cervical dextroscoliosis and kyphosis, head CT scan negative for the bleed or tumor but with atrophy and chronic white matter changes. Ankle x-ray with heterotrophic ossification distal to the medial lateral malleoli likely chronic without evidence of fracture. And shoulder x-ray with the polyarticular osteoarthritis. He was negative for influenza a influenza B RSV and COVID. Review of Systems 2 Review of Systems: All systems reviewed & are unremarkable except as noted in HPI and below PMFSH Past Medical History Medical History Hypothyroidism Arthritis Hypertension Hyperlipidemia CVA (cerebral vascular accident) Surgical History Surgical History H/O Spinal surgery History of appendectomy Family History Family History Sibling Family history of cardiovascular disease Other Diabetes mellitus Social History Social History Smoking packs per day: 1 Smoking cigarettes per day: 20.0 Smoking status: Current every day smoker Tobacco type: cigarettes Alcohol intake: never Substance use: never Substance use type: does not use Do You Feel Safe in your Home?: Yes Lack of Transportation: YES Lack of Food: Never True Current Housing: I Have Housing Concerned About Future Housing: No Difficulty Paying Gas/Electric Bills: No Difficulty Paying for Meds: No Currently Unemployed: No Education: Decline to Answer Difficulty w/ Childcare or Family Care: No Gender identity (if verbalized by the patient): Male Spiritual care concerns: No Meds Home Medications and Allergies Home Medications ?Medication ?Instructions ?Recorded ?Confirmed ?Type amlodipine 10 mg tablet 10 mg PO DAILY 11/12/20 08/08/24 History irbesartan 150 mg tablet 150 mg PO DAILY 11/12/20 08/08/24 History lisinopril 20 1 tablet PO DAILY 11/12/20 08/08/24 History mg-hydrochlorothiazide 12.5 mg tablet magnesium oxide 400 mg (241.3 mg 400 mg PO BID 11/12/20 08/08/24 History magnesium) tablet rosuvastatin 10 mg tablet 10 mg PO DAILY 11/12/20 08/08/24 History aspirin 81 mg chewable tablet 81 mg PO DAILY 08/08/24 08/08/24 History cyclobenzaprine 10 mg tablet 10 mg PO BID PRN muscle spasm 08/08/24 08/08/24 History esomeprazole magnesium 20 mg 20 mg PO DAILY 08/08/24 08/08/24 History tablet,delayed release (Nexium 24HR) levothyroxine 75 mcg tablet 75 mcg PO DAILY 08/08/24 08/08/24 History trazodone 150 mg tablet 150 mg PO QHS 08/08/24 08/08/24 History Allergies Allergy/AdvReac Type Severity Reaction Status Date / Time No Known Allergies Allergy Verified 08/08/24 11:52 Vital Signs Vital Signs - 24 hr 08/09/24 13:40 08/09/24 14:00 08/09/24 20:00 Temperature 36.9 C Pulse Rate 105 H Respiratory Rate 18 Blood Pressure 137/79 Pulse Oximetry 95 Oxygen Delivery Room Air Room Air Oxygen Flow Rate 08/09/24 20:32 08/09/24 22:45 08/10/24 07:59 Temperature 37.2 C Pulse Rate 110 H 123 H Respiratory Rate 24 H Blood Pressure 170/90 H 159/90 H Pulse Oximetry 92 95 92 Oxygen Delivery Room Air Oxygen Flow Rate 08/10/24 10:00 08/10/24 10:02 Temperature Pulse Rate Respiratory Rate Blood Pressure Pulse Oximetry 91 96 Oxygen Delivery Room Air Nasal Cannula Oxygen Flow Rate 2 Exam 2 Narrative: Exam at this particular time revealed him to be laying in bed flat with somewhat distant no ring breathing though is still easily arousable and and his at the bedside. Head normocephalic with no cranial bruit ,ear nose throat examination normal, neck supple with no meningeal signs, neck movements in the side to side or actions normal, eyes closed but able to be open bilaterally and even at that time he tried to follow the simple instructions like move his right arm or move his left arm, heart regular with no murmur, lungs with no crepitation but obvious snoring and mild rhonchi on breathing, abdomen is soft nontender somewhat distended, extremities normal and able to move all 4 of them command, his skin clear, neurologically he is snoring but arousable and follows the instruction as mentioned above pupils round regular feels the vision are unreliable he followed the extraocular movements in all 4 directions, facial grimace symmetrical tongue and the oral cavity with no fasciculation able to move both upper and lower extremities, deep tendon reflexes sluggish and plantar responses only questionable he did not perform [id number]-finger or heel to knee to conklin. Results Labs 08/10/24 07:16 08/10/24 07:16 Labs: Short CBC 08/10/24 Range/Units 07:16 WBC 14.6 H (4.5-10.0) K/mm3 Hgb 11.5 L (14.0-18.0) g/dL Hct 34.4 L (42.0-52.0) % Plt Count 225 (150-375) k/mm3 BMP 08/10/24 07:16 Sodium 136 L Potassium 3.3 L Chloride 98 Carbon Dioxide 27 BUN 23 H Creatinine 1.20 Glucose 111 H Calcium 8.3 L Liver Function 08/10/24 Range/Units 07:16 Total Bilirubin 1.4 H (0.2-1.3) mg/dL AST 36 (17-59) U/L ALT 32 (6-50) U/L Alkaline Phosphatase 117 (38-126) U/L Albumin 3.5 (3.5-5.1) g/dL
--- NOTE | 2024-08-10 14:00 | PCSTNOTE ---
BSE attempted this date at 1330. AFSHAN Alanis noted that pt was just given a sedative (Haldol). ST to attempt to complete BSE tomorrow, 08/11. Thank you.
--- NOTE | 2024-08-10 16:02 | PCPTNOTE ---
Attempted to see patient for PT, however patient having increase confusion this date, per patient's family member declined PT at this time.
[2024-08-11] VITALS (7 sets, daily range): BP systolic 154–163; BP diastolic 81–96; PULSE 91–99; RESP 18–24; TEMP 37–37.2; O2SAT 92–95
[2024-08-11 05:43] LABS: Basophils Absolute Auto 0.1 K/mm3 (0.0-0.1); Basophils Percent Auto 0.4 % (0.2-1.2); Eosinophils Absolute Auto 0.1 K/mm3 (0-0.3); Eosinophils Percent Auto 0.4 % (0-4.4); Hematocrit 36.6 % (42.0-52.0); Immature Granulocyte Absolute 0.07 K/mm3 (0.00-0.031); Immature Granulocyte Percent A 0.5 % (0-0.5); Lymphocytes Percent Auto 6.5 % (18.3-44.2); Mean Corpuscular HGB Conc 32.8 g/dl (32-36); Mean Corpuscular Hemoglobin 30.2 pg (26-34); Mean Platelet Volume 10.5 fl (7.4-10.4); Monocytes Percent Auto 7.6 % (2.6-8.5); Neutrophils Absolute Auto 11.6 K/mm3 (1.3-6.7); Neutrophils Percent Auto 84.6 % (45.5-73.1); Platelet Count Result 256 k/mm3 (150-375); Red Blood Count 3.98 M/mm3 (4.6-6.20); Red Cell Distribution Width 13.8 % (11.5-14.5); White Blood Count 13.8 K/mm3 (4.5-10.0)
[2024-08-11 05:52] LABS: Alanine Aminotransferase 49 U/L (6-50); Albumin Level 3.5 g/dL (3.5-5.1); Alkaline Phosphatase 124 U/L (38-126); Anion Gap 11 mmol/L (4-12); Aspartate Amino Transferase 64 U/L (17-59); Bilirubin,Total 1.3 mg/dL (0.2-1.3); Blood Urea Nitrogen 26 mg/dL (9-20); Calcium 8.8 mg/dL (8.4-10.2); Carbon Dioxide 28 mmol/L (22-30); Chloride 102 mmol/L (98-107); Cholesterol 103 mg/dL (0-200); Estimated CRCL calculation 57 ml/min; Estimated Glomerular Filt Rate 59; Glucose 105 mg/dL (65-110); HDL Direct 20 mg/dL; Potassium 3.4 mmol/L (3.4-5.0); Sodium 141 mmol/L (137-145); Triglycerides 109 mg/dL (<150)
[2024-08-11 06:03] LABS: LDL Cholesterol Direct 45 mg/dL
[2024-08-11 06:59] LABS: Free T4 Free Thyroxine Reflex 1.11 ng/dL (0.78-2.19)
[2024-08-11 08:15] LABS: Total Triiodothyronine (T3) 0.77 NG/ML (0.97-1.69)
[2024-08-11] MEDS: NICOTINE (*PBKC) 14 MG PATCH 1 PATCH TRANSDERM (10:04)
--- NOTE | 2024-08-11 10:46 | PCSTNOTE ---
Please refer to the Bedside Swallow Evaluation in the EMR. Please note, silent aspiration cannot be ruled out at bedside. This 69 year old male pt was seen for a bedside swallow evaluation (BSE) to ensure safe swallowing during oral intake. He was admitted on 08/08/24 due to left ankle pain. The pt has a past medical history of a CVA. Upon entry, the pt was laying in bed and sounded wet/gurgly. After clearing his throat, the pt managed to have a more clear vocal quality. The pt is missing some teeth, but demonstrates appropriate range of mobility and strength for oral intake as evidenced by the completion of an oral motor exam. Trials of ice chips, thin liquids, pureed (pudding) and solid (lior cracker) consistencies were trialed this date. The pt demonstrated a wet/gurgly vocal quality as well as a cough following trials of thin liquids and lior cracker. The pt showed no s/s of aspiration during trials of puree (pudding). The pt was able to follow simple directions, and after completing a throat clear and swallowing again, the pts vocal quality returned to more clear quality. Silent aspiration cannot be ruled out at bedside. Due to the pt demonstrating s/s of aspiration on thin and solid consistencies, it is recommended that the pt be NPO until an MBS can be completed. An MBS cannot be completed today, 08/11, due to no Radiologist being on site, but the MBS will be completed tomorrow, 08/12. AFSHAN Whitehead and Dr. Gasca have been informed of the results and recommendations of this BSE. Thank you for this referral.
[2024-08-11] MEDS: AZITHROMYCIN 500 MG/NS 250 ML 500 MG/250 ML BAG 250 MG IVPB (13:07)
--- NOTE | 2024-08-11 13:22 | PM.IMPN ---
Progress Note: A&P Assessment and Plan (1) Fall from ground level: Code(s): W18.30XA - Fall on same level, unspecified, initial encounter Status: Acute Assessment and Plan: Patient sustained a ground level fall after taking muscle relaxers and trazodone, became dizzy falling on his left side and twisting his left ankle. Crutch training PT and OT ordered (2) Left ankle sprain: Code(s): S93.402A - Sprain of unspecified ligament of left ankle, initial encounter Status: Acute Assessment and Plan: left ankle x-ray showing heterotrophic ossification distal to medial and lateral malleoli likely chronic, no specific evidence of acute fracture however there was noted ankle soft tissue swelling. Ice and elevate Michele wrap for support will need crutch training PT and OT ordered continue pain control- avoid narcotic pain meds as pt confused now (3) Left shoulder pain: Code(s): M25.512 - Pain in left shoulder Status: Acute Assessment and Plan: left shoulder x-ray shown polyarticular osteoarthritis continue pain control (4) Generalized weakness: Code(s): R53.1 - Weakness Status: Acute Assessment and Plan: PT and OT ordered Will need crutch training care coordination following- working on placement (5) Hyperlipidemia: Code(s): E78.5 - Hyperlipidemia, unspecified Status: Acute Assessment and Plan: continue aspirin and rosuvastatin (6) Hypertension: Code(s): I10 - Essential (primary) hypertension Status: Acute Assessment and Plan: blood pressures ranging 114/58 to 149/90 continue lisinopril, amlodipine, hydrochlorothiazide,and Avapro (7) Hypothyroidism: Code(s): E03.9 - Hypothyroidism, unspecified Status: Acute Assessment and Plan: continue Synthroid tsh rechecked- 9.890 will increase to 87.5 mcg will need recheck in (8) Altered mental state: Code(s): R41.82 - Altered mental status, unspecified Status: Acute Assessment and Plan: worsening of wbc, more confused today chest xray done: Probable focal left basilar atelectasis, possibly pneumonia. Correlate clinically. will treat for pneumonia- rocephin/azithromycin ordered and started on 08/[address] to r/u any new neurological symptoms - close monitoring- fall risk trend labs bc collected- pending neurology consult tele monitoring- will stop now 08/11 improving now with antibiotic tx Plan trend and replace electrolytes Time Spent With Patient Time with patient: 25 - 35 minutes Subjective Date/time seen: 08/11/24 13:22 Interval history: Left ankle pain This is a 69-year-old male with a significant past medical history of hypothyroidism, arthritis, hypertension, hyperlipidemia, CVA who presented to the hospital with complaints of left ankle and left shoulder pain. He states that he had a ground level fall 4 days ago on Monday night after he took 2 doses of his muscle relaxer and trazodone causing him to feel dizzy and fall to the ground. He had shoulder pain for those four days but the left ankle started hurting today and was unable to bear weight on it. That prompted him to come in for further evaluation. Workup in the hospital included a cervical spine CT which was negative for fracture, showed severe cervical spondylosis, cervical dextroscoliosis and kyphosis. Head CT was negative for any acute intracranial hemorrhage, mass or infarct, shown atrophy and chronic white matter changes. Left ankle x-ray showed hetero trophic ossification distal to medial and lateral malleoli, likely chronic no specific evidence of acute fracture, there was ankle soft tissue swelling noted on the x-ray. left shoulder x-ray showed polyarticular osteoarthritis. Initial labs showed a white blood cell count of 12.5, hemoglobin 12.4, potassium 3.2, total bili 1.9. UA was obtained which showed 1+ urine protein, 1+ urine bili, 2.0 urine urobilinogen. respiratory panel was negative for influenza a, influenza B, RSV, COVID. EKG showed sinus rhythm with sinus arrhythmia with a rate of 96, QTC 472. Patient was given 40 mEq of potassium, [place], Tylenol while in the ED. he was also showed how to use crutches however had issues while in the ED with weight-bearing on his left ankle and was not able to help him get off of the stretcher. He is being admitted for observation and PT/ OT evaluation as it was deemed not safe to send home at this time. Pt is seen and examined. PT/OT eval ordered. Nicotine patch ordered. Pt is c/o gerd like symptoms tis am. pt is calm and comfortable, voices no acute complains. 08/10 intermittent confusion last night and this am. Facial droop and lt arm drift per rn report. Unable to do mri today. will repeat ct to re eval, neuro checks, asa, increase statin dose and neurology consult. 08/11- pt is seen and examined. He is up in the chair. alert, oriented, still cough but breathing better, no sob. care coordination working on placement. He failed bedside speech eval- so MBS is advised on monday. Review of Systems Review of Systems: All systems reviewed & are unremarkable except as noted in HPI and below Exam Narrative: General: In no acute distress, well nourished Head: atraumatic, no encephalopathy Eyes: PERRLA, sclera clear ENT: moist mucous membranes, nasal passages clear Neck: supple, no JVD, no adenopathy, trachea midline Cardiac: Normal S1 and S2. RRR, No murmur, gallops or friction rubs, peripheral pulses intact. Respiratory: ls coarse, no other adventitious lung sounds, currently on room air Gastrointestinal: soft, non-distended, non-tender, normoactive bowel sounds. : voiding without difficulty. Extremities: moves all extremities well,mild edema left ankle Skin: clean, dry, intact. No wounds or lesions. Neuro: Alert and oriented x4, cranial nerves intact, no neuro deficits. Psych: normal mood, normal affect, interactive Objective Data Vital Signs Vital Signs: Vital Signs - 24 hr 08/10/24 14:00 08/10/24 16:00 08/10/24 20:00 Temperature 98.2 F Pulse Rate 102 H 101 H Respiratory Rate 20 Blood Pressure 146/78 H Pulse Oximetry 97 96 Oxygen Delivery Nasal Cannula Oxygen Flow Rate 2 08/10/24 20:00 08/10/24 23:00 08/11/24 00:00 Temperature 98.3 F Pulse Rate 107 H 99 95 Respiratory Rate 22 H Blood Pressure 169/56 H Pulse Oximetry 93 Oxygen Delivery Oxygen Flow Rate 08/11/24 04:00 08/11/24 04:47 08/11/24 08:00 Temperature 98.6 F Pulse Rate 91 99 95 Respiratory Rate 24 H Blood Pressure 157/81 H Pulse Oximetry 94 Oxygen Delivery Oxygen Flow Rate 08/11/24 12:00 Temperature Pulse Rate 99 Respiratory Rate Blood Pressure Pulse Oximetry Oxygen Delivery Oxygen Flow Rate Intake/Output Intake/Output: Intake & Output 08/08/24 08/09/24 08/10/2408/11/25 23:59 23:59 23:59 23:59 Intake Total 910 300 50 Output Total 210 1850 500 Balance -210 -940 300 -450 Meds/Results Medications: Active Medications Generic Name Dose Route Start Last Admin Trade Name Freq PRN Reason Stop Dose Admin Acetaminophen 650 mg 08/08/24 19:11 Acetaminophen 325 Mg Tablet PO Q4H PRN Mild Pain (1-3) or Fever Hydrocodone Bitart/Acetaminophen 1 tab 08/08/24 19:11 Hydrocodone/Acetaminophen (*Crx) 5-325 Mg Tablet PO Q4H PRN Pain Rated 4-6 Amlodipine Besylate 10 mg 08/09/24 09:00 08/11/24 09:58 Amlodipine Besylate 10 Mg Tablet PO Not Given DAILY [facility] Aspirin 81 mg 08/09/24 09:00 08/11/24 09:58 Aspirin 81 Mg Chewable Tablet PO Not Given DAILY [facility] Calcium Carbonate 200 mg 08/09/24 09:35 Calcium Carbonate (Tums) 500 Mg (200 Mg Elemental) PO Q6H PRN Indigestion Cyclobenzaprine HCl 10 mg 08/08/24 23:30 Cyclobenzaprine Hcl 10 Mg Tablet PO BID PRN muscle spasm Folic Acid 1 mg 08/10/24 09:00 08/11/24 09:58 Folic Acid 1 Mg Tablet PO Not Given DAILY [facility] Hydrochlorothiazide 12.5 mg 08/09/24 09:00 08/11/24 09:58 Hydrochlorothiazide 12.5 Mg Capsule PO Not Given QAM [facility] Ceftriaxone Sodium 1 gm in 50 mls @ 100 mls/hr 08/10/24 11:00 08/11/24 10:34 Rocephin 1 Gm/Ns 50 Ml IVPB Infused Q24H [facility] Infusion Azithromycin 500 mg in 250 mls @ 250 mls/hr 08/10/24 12:00 08/11/24 13:07 Zithromax IVPB 250 mls/hr Q24H [facility] Administration Irbesartan 150 mg 08/09/24 09:00 08/11/24 09:58 Irbesartan 150 Mg Tablet PO Not Given DAILY [facility] Ketorolac Tromethamine 15 mg 08/11/24 09:50 Ketorolac 15 Mg/Ml Vial (*Bkc) IV PUSH Q6H PRN Pain Rated 4-6 Levothyroxine Sodium 75 mcg 08/09/24 06:30 08/11/24 05:39 Levothyroxine Sodium 75 Mcg Tablet PO Not Given DAILY@0630 [facility] Lisinopril 20 mg 08/09/24 09:00 08/11/24 09:58 Lisinopril 20 Mg Tablet PO Not Given QAM [facility] Magnesium Oxide 400 mg 08/09/24 09:00 08/11/24 09:58 Magnesium Oxide 400 Mg Tablet PO Not Given BID [facility] Morphine Sulfate 2 mg 08/08/24 19:11 Morphine Sulfate (*Crx) 2 Mg/Ml Inj IV PUSH Q2H PRN Pain Rated 7-10 Nicotine 1 patch 08/09/24 09:00 08/11/24 10:04 Nicotine (*Pbkc) 14 Mg Patch TRANSDERM 1 patch DAILY [facility] Administration Ondansetron HCl 4 mg 08/08/24 19:11 Ondansetron Inj 4 Mg/2 Ml Vial IV PUSH Q4H PRN Nausea Rosuvastatin Calcium 20 mg 08/11/24 09:00 08/11/24 09:58 Rosuvastatin 10 Mg Tablet PO Not Given DAILY [facility] Trazodone HCl 150 mg 08/09/24 21:00 08/10/24 22:44 Trazodone Hcl 50 Mg Tablet PO Not Given QHS [facility] Radiology Results: ITS Impressions Cervical Spine CT 08/08/24 13:28 IMPRESSION: 1. No fracture 2. Severe cervical spondylosis. 3. Cervical dextroscoliosis and kyphosis. Head CT 08/08/24 13:29 Impression: No intracranial hemorrhage, mass, or acute infarct. Atrophy and chronic white matter changes, as above. Ankle X-Ray 08/08/24 13:42 IMPRESSION: 1. Heterotopic ossification distal to medial and lateral malleoli, likely chronic. No specific evidence of acute fracture. Shoulder X-Ray 08/08/24 13:45 IMPRESSION: 1. Polyarticular osteoarthritis. Chest X-Ray 08/10/24 07:14 Impression: Probable focal left basilar atelectasis, possibly pneumonia. Correlate clinically. Head/Neck CTA 08/10/24 15:38 IMPRESSION: No acute intracranial process. No large vessel intracranial occlusion, high-grade intracranial stenosis, or aneurysm. No carotid or vertebral artery occlusion, dissection, or significant stenosis, within the constraints of mild motion artifact described above. Soft tissue stranding/edema along the left previous muscle and anterior to the left clavicle. Labs Labs: Laboratory Results - last 24 hr 08/11/24 05:17 WBC 13.8 H RBC 3.98 L Hgb 12.0 L Hct 36.6 L MCV 92.0 MCH 30.2 MCHC 32.8 RDW 13.8 Plt Count 256 MPV 10.5 H Immature Gran % (Auto) 0.5 Neut % (Auto) 84.6 H Lymph % (Auto) 6.5 L Wolfe % (Auto) 7.6 Eos % (Auto) 0.4 Baso % (Auto) 0.4 Lymph # (Auto) 0.90 Wolfe # (Auto) 1.0 H Eos # (Auto) 0.1 Baso # (Auto) 0.1 Abs Immat Gran (auto) 0.07 H Absolute Neuts (auto) 11.6 H Absolute Nucleated RBC 0.000 Nucleated RBC % 0.0 Sodium 141 Potassium 3.4 Chloride 102 Carbon Dioxide 28 Anion Gap 11 BUN 26 H Creatinine 1.21 Estim Creat Clear Calc 57 Estimated GFR 59 Glucose 105 Calcium 8.8 Magnesium 2.0 Total Bilirubin 1.3 AST 64 H ALT 49 Alkaline Phosphatase 124 Total Protein 7.0 Albumin 3.5 Triglycerides 109 Cholesterol 103 LDL Cholesterol Direct 45 HDL Direct 20 TSH (Reflex) 9.890 H Free T4 1.11 Total T3 0.77 L Quality VTE Prophylaxis VTE prophylaxis: mechanical ordered
--- NOTE | 2024-08-11 14:06 | PC.NURSE ---
Patient failed bedside swallow study with speech therapy. Hospitalist Vira spoke with patient and spouse. Hospitalist stated patient can have ice chips.
--- NOTE | 2024-08-11 17:09 | PC.NURSE ---
Patient excessively hitting the call light and screaming fuck you through it to the staff.
[2024-08-11] MEDS: traZODone HCL 50 MG TABLET 150 MG PO (20:22)
[2024-08-12] MEDS: LORazepam INJ (*CRX) 2 MG/ML VIAL IV PUSH (01:18)
[2024-08-12 05:28] LABS: Basophils Absolute Auto 0.1 K/mm3 (0.0-0.1); Basophils Percent Auto 0.3 % (0.2-1.2); Eosinophils Absolute Auto 0.1 K/mm3 (0-0.3); Eosinophils Percent Auto 0.3 % (0-4.4); Hematocrit 35.8 % (42.0-52.0); Hemoglobin 11.5 g/dL (14.0-18.0); Immature Granulocyte Percent A 0.7 % (0-0.5); Lymphocytes Absolute Auto 1.24 K/mm3 (0.9-3.2); Lymphocytes Percent Auto 8.4 % (18.3-44.2); Mean Corpuscular HGB Conc 32.1 g/dl (32-36); Mean Corpuscular Hemoglobin 29.6 pg (26-34); Mean Corpuscular Volume 92.3 fl (80-100); Mean Platelet Volume 10.5 fl (7.4-10.4); Monocytes Absolute Auto 1.2 K/mm3 (0.1-0.6); Monocytes Percent Auto 8.1 % (2.6-8.5); Neutrophils Absolute Auto 12.1 K/mm3 (1.3-6.7); Neutrophils Percent Auto 82.2 % (45.5-73.1); Platelet Count Result 292 k/mm3 (150-375); Red Blood Count 3.88 M/mm3 (4.6-6.20); Red Cell Distribution Width 13.7 % (11.5-14.5); White Blood Count 14.7 K/mm3 (4.5-10.0)
[2024-08-12 05:46] LABS: Alanine Aminotransferase 83 U/L (6-50); Albumin Level 3.5 g/dL (3.5-5.1); Alkaline Phosphatase 137 U/L (38-126); Anion Gap 12 mmol/L (4-12); Aspartate Amino Transferase 102 U/L (17-59); Bilirubin,Total 1.3 mg/dL (0.2-1.3); Blood Urea Nitrogen 32 mg/dL (9-20); Carbon Dioxide 29 mmol/L (22-30); Chloride 103 mmol/L (98-107); Estimated CRCL calculation 58 ml/min; Estimated Glomerular Filt Rate 60; Glucose 109 mg/dL (65-110); Potassium 3.5 mmol/L (3.4-5.0); Sodium 144 mmol/L (137-145)
[2024-08-12 06:00] VITALS: BP 154/87; PULSE 99; RESP 18; TEMP 36.9; O2SAT 93
--- NOTE | 2024-08-12 07:50 | PC.NURSE ---
Patient is not oriented at this time. Patient is resisting care. Patient is being non compliant with bed alarm and cussing at staff. RN called patient's and asked her if she would be able to come sit with patient and see if that will calm him down. stated she would be here in an hour to sit with patient.
--- NOTE | 2024-08-12 08:05 | PC.NURSE ---
Patient off of unit to MRI
[2024-08-12 09:41] VITALS: O2SAT 92
--- NOTE | 2024-08-12 10:34 | PC.NURSE ---
Patient off of unit to modified barium swallow
[2024-08-12 11:05] VITALS: BP 136/75
[2024-08-12] MEDS: ROSUVASTATIN 10 MG TABLET 20 MG PO (11:07)
[2024-08-12] MEDS: ASPIRIN 81 MG CHEWABLE TABLET PO (11:07)
[2024-08-12] MEDS: NICOTINE (*PBKC) 14 MG PATCH 1 PATCH TRANSDERM (11:08)
[2024-08-12] MEDS: LEVOTHYROXINE SODIUM 75 MCG TABLET PO (11:08)
[2024-08-12] MEDS: AZITHROMYCIN 500 MG/NS 250 ML 500 MG/250 ML BAG 250 MG IVPB (11:08)
[2024-08-12] MEDS: MAGNESIUM OXIDE 400 MG TABLET PO (11:08)
[2024-08-12] MEDS: FOLIC ACID 1 MG TABLET PO (11:08)
[2024-08-12] MEDS: LEVOTHYROXINE SODIUM 12.5 MCG TABLET PO (11:08)
[2024-08-12] MEDS: hydroCHLOROthiazide 12.5 MG CAPSULE PO (11:25)
[2024-08-12] MEDS: lisinopriL 20 MG TABLET PO (11:25)
[2024-08-12] MEDS: IRBESARTAN 150 MG TABLET PO (11:25)
[2024-08-12] MEDS: amLODIPine BESYLATE 10 MG TABLET PO (11:25)
[2024-08-12] MEDS: SODIUM CHLORIDE 0.9% IV 1,000 ML 75 ML IV CONT (14:45)
--- NOTE | 2024-08-12 15:10 | P.PNIM_ITS ---
Progress Note: A&P Assessment and Plan (1) Altered mental state: Code(s): R41.82 - Altered mental status, unspecified Status: Acute Assessment and Plan: [facility] still running high watch order UC continue IV rocephin ? toxic metabolic encephalopathy V neurology cause LP and EEG adviced antonio plan continue IV fluids and ABX today pt takes trazadone and muscle relaxers at home (2) Fall from ground level: Code(s): W18.30XA - Fall on same level, unspecified, initial encounter Status: Acute Assessment and Plan: Patient sustained a ground level fall after taking muscle relaxers and trazodone, became dizzy falling on his left side and twisting his left ankle. 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 * Ice and elevate * Michele wrap for support * will need crutch training * PT and OT ordered * continue pain control (4) Left shoulder pain: Code(s): M25.512 - Pain in left shoulder Status: Acute Assessment and Plan: * left shoulder x-ray shown polyarticular osteoarthritis * continue pain control (5) Generalized weakness: Code(s): R53.1 - Weakness Status: Acute Assessment and Plan: * PT and OT ordered * Will need crutch training * care coordination following- working on placement (6) Hyperlipidemia: Code(s): E78.5 - Hyperlipidemia, unspecified Status: Acute Assessment and Plan: * continue aspirin and rosuvastatin (7) Hypertension: Code(s): I10 - Essential (primary) hypertension Status: Acute Assessment and Plan: * blood pressures ranging 114/58 to 149/90 * continue lisinopril, amlodipine, hydrochlorothiazide,and Avapro (8) Hypothyroidism: Code(s): E03.9 - Hypothyroidism, unspecified Status: Acute Assessment and Plan: * continue Synthroid * tsh rechecked- 9.890 * will increase to 87.5 mcg * will need recheck in Subjective Date/time seen: 08/12/24 15:10 Interval history: 69-year-old male with a significant past medical history of hypothyroidism, arthritis, hypertension, hyperlipidemia, CVA who presented to the hospital with complaints of left ankle and left shoulder pain. He states that he had a ground level fall 4 days ago on Monday night after he took 2 doses of his muscle relaxer and trazodone causing him to feel dizzy and fall to the ground. Pt looks very confused MRI shows brain atrophy nothing else acute Uds too late to do [facility] high BC pending bernice order UC very concerned about why he is so confused Neurology states either metabolic encephalopathy but suggests EEG and LP to order antonio Review of Systems Review of Systems: ongoing confused All systems reviewed & are unremarkable except as noted in HPI and below Exam Narrative: General: Pt looks confused Cardiac: Normal S1 and S2. RRR, No murmur, gallops or friction rubs, peripheral pulses intact. Respiratory: ls coarse, no other adventitious lung sounds, currently on room air Gastrointestinal: soft, non-distended, non-tender, normoactive bowel sounds. : voiding without difficulty. Extremities: moves all extremities well,mild edema left ankle Skin: clean, dry, intact. No wounds or lesions. Neuro: disoriented, cranial nerves intact, no neuro deficits. Psych: normal mood, normal affect, interactive Objective Data Vital Signs Vital Signs: Vital Signs - 24 hr 08/11/24 20:00 08/11/24 22:00 08/12/24 06:00 Temperature 37.0 C 36.9 C Pulse Rate 98 99 Respiratory Rate 20 18 Blood Pressure 163/83 H 154/87 H Pulse Oximetry 92 93 Oxygen Delivery Room Air 08/12/24 09:41 08/12/24 11:05 Temperature Pulse Rate Respiratory Rate Blood Pressure 136/75 Pulse Oximetry 92 Oxygen Delivery Room Air Intake/Output Intake/Output: Intake & Output 08/09/24 08/10/24 08/11/24 08/12/24 23:59 23:59 23:59 23:59 Intake Total 910 143 224 6075 Output Total 1850 700 Balance -940 300 -400 2040 Meds/Results Medications: Active Medications Generic Name Dose Route Start Last Admin Trade Name Freq PRN Reason Stop Dose Admin Acetaminophen 650 mg 08/08/24 19:11 Acetaminophen 325 Mg Tablet PO Q4H PRN Mild Pain (1-3) or Fever Hydrocodone Bitart/Acetaminophen 1 tab 08/08/24 19:11 Hydrocodone/Acetaminophen (*Crx) 5-325 Mg Tablet PO Q4H PRN Pain Rated 4-6 Amlodipine Besylate 10 mg 08/09/24 09:00 08/12/24 11:25 Amlodipine Besylate 10 Mg Tablet PO 10 mg DAILY NERY Administration Aspirin 81 mg 08/09/24 09:00 08/12/24 11:07 Aspirin 81 Mg Chewable Tablet PO 81 mg DAILY NERY Administration Calcium Carbonate 200 mg 08/09/24 09:35 Calcium Carbonate (Tums) 500 Mg (200 Mg Elemental) PO Q6H PRN Indigestion Cyclobenzaprine HCl 10 mg 08/08/24 23:30 Cyclobenzaprine Hcl 10 Mg Tablet PO BID PRN muscle spasm Folic Acid 1 mg 08/10/24 09:00 08/12/24 11:08 Folic Acid 1 Mg Tablet PO 1 mg DAILY NERY Administration Guaifenesin 600 mg 08/11/24 13:23 Guaifenesin 12 Hr 600 Mg Tabcr PO Q12HR PRN coughing Hydrochlorothiazide 12.5 mg 08/09/24 09:00 08/12/24 11:25 Hydrochlorothiazide 12.5 Mg Capsule PO 12.5 mg QAM NERY Administration Azithromycin 500 mg in 250 mls @ 250 mls/hr 08/10/24 12:00 08/12/24 12:08 Zithromax IVPB 08/14/24 12:59 Infused Q24H NERY Infusion Sodium Chloride 1,000 mls @ 75 mls/hr 08/12/24 12:05 08/12/24 14:45 Normal Saline Iv IV CONT 75 mls/hr .[id number] NERY Administration Ceftriaxone Sodium 2 gm in 100 mls @ 200 mls/hr 08/13/24 09:00 Rocephin 2 Gm/Ns 100 Ml IVPB DAILY NERY Irbesartan 150 mg 08/09/24 09:00 08/12/24 11:25 Irbesartan 150 Mg Tablet PO 150 mg DAILY NERY Administration Ketorolac Tromethamine 15 mg 08/11/24 09:50 Ketorolac 15 Mg/Ml Vial (*Bkc) IV PUSH Q6H PRN Pain Rated 4-6 Levothyroxine Sodium 12.5 mcg 08/12/24 06:30 08/12/24 11:08 Levothyroxine Sodium 12.5 Mcg Tablet PO 12.5 mcg DAILY@0630 NERY Administration Levothyroxine Sodium 75 mcg 08/12/24 06:30 08/12/24 11:08 Levothyroxine Sodium 75 Mcg Tablet PO 75 mcg DAILY@0630 NERY Administration Lisinopril 20 mg 08/09/24 09:00 08/12/24 11:25 Lisinopril 20 Mg Tablet PO 20 mg QAM NERY Administration Magnesium Oxide 400 mg 08/09/24 09:00 08/12/24 11:08 Magnesium Oxide 400 Mg Tablet PO 400 mg BID NERY Administration Morphine Sulfate 2 mg 08/08/24 19:11 Morphine Sulfate (*Crx) 2 Mg/Ml Inj IV PUSH Q2H PRN Pain Rated 7-10 Nicotine 1 patch 08/09/24 09:00 08/12/24 11:08 Nicotine (*Pbkc) 14 Mg Patch TRANSDERM 1 patch DAILY NERY Administration Ondansetron HCl 4 mg 08/08/24 19:11 Ondansetron Inj 4 Mg/2 Ml Vial IV PUSH Q4H PRN Nausea Rosuvastatin Calcium 20 mg 08/11/24 09:00 08/12/24 11:07 Rosuvastatin 10 Mg Tablet PO 20 mg DAILY NERY Administration Trazodone HCl 150 mg 08/09/24 21:00 08/11/24 20:22 Trazodone Hcl 50 Mg Tablet PO 150 mg QHS NERY Administration Radiology Results: ITS Impressions Cervical Spine CT 08/08/24 13:28 IMPRESSION: 1. No fracture 2. Severe cervical spondylosis. 3. Cervical dextroscoliosis and kyphosis. Head CT 08/08/24 13:29 Impression: No intracranial hemorrhage, mass, or acute infarct. Atrophy and chronic white matter changes, as above. Ankle X-Ray 08/08/24 13:42 IMPRESSION: 1. Heterotopic ossification distal to medial and lateral malleoli, likely chronic. No specific evidence of acute fracture. Shoulder X-Ray 08/08/24 13:45 IMPRESSION: 1. Polyarticular osteoarthritis. Head/Neck CTA 08/10/24 15:38 IMPRESSION: No acute intracranial process. No large vessel intracranial occlusion, high-grade intracranial stenosis, or aneurysm. No carotid or vertebral artery occlusion, dissection, or significant stenosis, within the constraints of mild motion artifact described above. Soft tissue stranding/edema along the left previous muscle and anterior to the left clavicle. Chest X-Ray 08/12/24 07:44 Impression: Clear lungs. Possible COPD. Brain MRI 08/12/24 08:58 IMPRESSION: 1. Brain atrophy with deep white matter ischemic changes. White matter disease is not excluded. 2. No acute infarct or hemorrhage. No masses or enhancing lesions seen. Modified Barium Swallow 08/12/24 11:44 IMPRESSION: Mild oropharyngeal dysphagia with flash laryngeal penetration without aspiration. Please correlate with speech pathologist findings and specific feeding recommendations. Labs Labs: Laboratory Results - last 24 hr 08/12/24 05:05 WBC 14.7 H RBC 3.88 L Hgb 11.5 L Hct 35.8 L MCV 92.3 MCH 29.6 MCHC 32.1 RDW 13.7 Plt Count 292 MPV 10.5 H Immature Gran % (Auto) 0.7 H Neut % (Auto) 82.2 H Lymph % (Auto) 8.4 L [place] % (Auto) 8.1 Eos % (Auto) 0.3 Baso % (Auto) 0.3 Lymph # (Auto) 1.24 [place] # (Auto) 1.2 H Eos # (Auto) 0.1 Baso # (Auto) 0.1 Abs Immat Gran (auto) 0.10 H Absolute Neuts (auto) 12.1 H Absolute Nucleated RBC 0.000 Nucleated RBC % 0.0 Sodium 144 Potassium 3.5 Chloride 103 Carbon Dioxide 29 Anion Gap 12 BUN 32 H Creatinine 1.19 Estim Creat Clear Calc 58 Estimated GFR 60 Glucose 109 Calcium 9.0 Total Bilirubin 1.3 AST 102 H ALT 83 H Alkaline Phosphatase 137 H Total Protein 7.0 Albumin 3.5
[2024-08-12 15:20] VITALS: BP 160/78; PULSE 88; RESP 16; TEMP 36.1; O2SAT 97
--- NOTE | 2024-08-12 15:22 | PCSTNOTE ---
Please refer to the Modified Barium Swallow Evaluation in the EMR. Pt was seen for an inpatient Modified Barium Swallow due to the bedside swallow eval revealed a wet/gurgly vocal quality as well as a cough following trials of thin liquids and lior cracker. The pt was lethargic but followed directives during the exam. He denied difficulty swallowing. Missing teeth noted. The pt was seated for a lateral view and was presented with 5cc of thin liquid barium via spoon, pudding consistency barium via a spoon, a cracker coated with barium pudding via spoon, and uncontrolled thin liquid barium. This was presented via a cup & straw. During the oral stages, disorganized bolus prep was exhibited. No leakage occurred but mastication was slow with generalized oral residue occurring after the solid trial. With a liquid wash the oral residue was cleared. During the pharyngeal stage, intermittent laryngeal penetration occurred with the thin liquid trial via the straw which is WFL. No aspiration occurred. Pt coughed after testing but it was not related to an occurrence of aspiration. Impression: Mild oral stage difficulty possibly related to lethargy/decreased level of alertness. Recommendation: level 5 minced and moist diet with regular liquids. Due to pts lethargy it is recommended for pt to be out of bed for all meals. Once lethargy improves, diet can be advanced to level 6.
--- NOTE | 2024-08-12 15:26 | PCPTNOTE ---
Attempted to see patient for PT, however patient sound asleep and unable to be aroused at this time. Patient unable to be seen for PT at this time.
[2024-08-12] MEDS: QUEtiapine FUMARATE 25 MG TABLET PO (20:35)
[2024-08-12] MEDS: CALCIUM CARBONATE (TUMS) 500 MG (200 MG ELEMENTAL) PO (20:36)
[2024-08-12 21:53] VITALS: BP 134/56; PULSE 80; RESP 16; TEMP 36.1; O2SAT 95
[2024-08-13] MEDS: SODIUM CHLORIDE 0.9% IV 1,000 ML 75 ML IV CONT ×2 (02:23→19:01)
[2024-08-13] MEDS: LEVOTHYROXINE SODIUM 12.5 MCG TABLET PO (05:24)
[2024-08-13] MEDS: LEVOTHYROXINE SODIUM 75 MCG TABLET PO (05:24)
[2024-08-13 05:45] LABS: Basophils Absolute Auto 0.1 K/mm3 (0.0-0.1); Basophils Percent Auto 0.5 % (0.2-1.2); Eosinophils Absolute Auto 0.3 K/mm3 (0-0.3); Eosinophils Percent Auto 2.9 % (0-4.4); Hematocrit 34.1 % (42.0-52.0); Immature Granulocyte Absolute 0.06 K/mm3 (0.00-0.031); Immature Granulocyte Percent A 0.5 % (0-0.5); Lymphocytes Absolute Auto 1.38 K/mm3 (0.9-3.2); Lymphocytes Percent Auto 12.6 % (18.3-44.2); Mean Corpuscular HGB Conc 32.3 g/dl (32-36); Mean Corpuscular Hemoglobin 30.5 pg (26-34); Mean Corpuscular Volume 94.5 fl (80-100); Mean Platelet Volume 10.6 fl (7.4-10.4); Monocytes Absolute Auto 0.9 K/mm3 (0.1-0.6); Neutrophils Absolute Auto 8.2 K/mm3 (1.3-6.7); Neutrophils Percent Auto 75.5 % (45.5-73.1); Platelet Count Result 269 k/mm3 (150-375); Red Blood Count 3.61 M/mm3 (4.6-6.20); Red Cell Distribution Width 13.9 % (11.5-14.5); White Blood Count 10.9 K/mm3 (4.5-10.0)
[2024-08-13 06:08] LABS: Alanine Aminotransferase 89 U/L (6-50); Albumin Level 3.1 g/dL (3.5-5.1); Alkaline Phosphatase 110 U/L (38-126); Anion Gap 10 mmol/L (4-12); Aspartate Amino Transferase 92 U/L (17-59); Blood Urea Nitrogen 27 mg/dL (9-20); Calcium 8.4 mg/dL (8.4-10.2); Carbon Dioxide 29 mmol/L (22-30); Chloride 101 mmol/L (98-107); Estimated CRCL calculation 71 ml/min; Estimated Glomerular Filt Rate > 60; Glucose 104 mg/dL (65-110); Sodium 140 mmol/L (137-145)
[2024-08-13 07:08] LABS: Folic Acid 6.3 ng/mL (2.76->20)
[2024-08-13 10:20] VITALS: BP 167/77
[2024-08-13] MEDS: cefTRIAXone 2 GM/NS 100 ML 2 GM/100 ML BAG IVPB (10:20)
[2024-08-13] MEDS: MAGNESIUM OXIDE 400 MG TABLET PO ×2 (10:22→18:59)
[2024-08-13] MEDS: IRBESARTAN 150 MG TABLET PO (10:22)
[2024-08-13] MEDS: NICOTINE (*PBKC) 14 MG PATCH 1 PATCH TRANSDERM (10:22)
[2024-08-13] MEDS: amLODIPine BESYLATE 10 MG TABLET PO (10:22)
[2024-08-13] MEDS: ASPIRIN 81 MG CHEWABLE TABLET PO (10:22)
[2024-08-13] MEDS: lisinopriL 20 MG TABLET PO (10:22)
[2024-08-13] MEDS: hydroCHLOROthiazide 12.5 MG CAPSULE PO (10:22)
[2024-08-13] MEDS: ROSUVASTATIN 10 MG TABLET 20 MG PO (10:22)
[2024-08-13] MEDS: FOLIC ACID 1 MG TABLET PO (10:22)
[2024-08-13 14:00] VITALS: BP 118/73; PULSE 86; RESP 18; TEMP 37; O2SAT 95
--- NOTE | 2024-08-13 14:22 | P.PNIM_ITS ---
Progress Note: A&P Assessment and Plan (1) Altered mental state: Code(s): R41.82 - Altered mental status, unspecified Status: Acute Assessment and Plan: [facility] still running high watch BC order UC continue IV Rocephin ? toxic metabolic encephalopathy V neurology cause LP and EEG ordered plan continue IV fluids and ABX today Trazodone discontinued, continue Seroquel (2) Fall from ground level: Code(s): W18.30XA - Fall on same level, unspecified, initial encounter Status: Acute Assessment and Plan: Patient sustained a ground level fall after taking muscle relaxers and trazodone, became dizzy falling on his left side and twisting his left ankle. 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 * Ice and elevate * Michele wrap for support * will need crutch training * PT and OT ordered * continue pain control (4) Left shoulder pain: Code(s): M25.512 - Pain in left shoulder Status: Acute Assessment and Plan: * left shoulder x-ray shown polyarticular osteoarthritis * continue pain control (5) Generalized weakness: Code(s): R53.1 - Weakness Status: Acute Assessment and Plan: * PT and OT ordered * Will need crutch training * care coordination following- working on placement (6) Hyperlipidemia: Code(s): E78.5 - Hyperlipidemia, unspecified Status: Acute Assessment and Plan: * continue aspirin and rosuvastatin (7) Hypertension: Code(s): I10 - Essential (primary) hypertension Status: Acute Assessment and Plan: * blood pressures ranging 114/58 to 149/90 * continue lisinopril, amlodipine, hydrochlorothiazide,and Avapro (8) Hypothyroidism: Code(s): E03.9 - Hypothyroidism, unspecified Status: Acute Assessment and Plan: * continue Synthroid * tsh rechecked- 9.890 * will increase to 87.5 mcg * will need recheck in Plan DVT prophylaxis on Sq lovenox Subjective Date/time seen: 08/13/24 14:22 Interval history: Comfortable at bedside patient alert adn oriented x3 but inconsistent LP puncture ordered Review of Systems Review of Systems: ongoing confused All systems reviewed & are unremarkable except as noted in HPI and below Exam Narrative: General: Pt looks confused Cardiac: Normal S1 and S2. RRR, No murmur, gallops or friction rubs, peripheral pulses intact. Respiratory: ls coarse, no other adventitious lung sounds, currently on room air Gastrointestinal: soft, non-distended, non-tender, normoactive bowel sounds. : voiding without difficulty. Extremities: moves all extremities well,mild edema left ankle Skin: clean, dry, intact. No wounds or lesions. Neuro: disoriented, cranial nerves intact, no neuro deficits. Psych: normal mood, normal affect, interactive Objective Data Vital Signs Vital Signs: Vital Signs - 24 hr 08/12/24 15:20 08/12/24 20:00 08/12/24 21:53 Temperature 96.9 F L 97.0 F L Pulse Rate 88 80 Respiratory Rate 16 16 Blood Pressure 160/78 H 134/56 L Pulse Oximetry 97 95 Oxygen Delivery Room Air 08/13/24 10:20 08/13/24 10:48 Temperature Pulse Rate Respiratory Rate Blood Pressure 167/77 H Pulse Oximetry Oxygen Delivery Room Air Intake/Output Intake/Output: Intake & Output 08/10/24 08/11/24 08/12/24 08/13/24 23:59 23:59 23:59 23:59 Intake Total 832 051 9341 1452.5 Output Total 700 200 500 Balance 300 -400 2490 952.5 Meds/Results Medications: Active Medications Generic Name Dose Route Start Last Admin Trade Name Freq PRN Reason Stop Dose Admin Acetaminophen 650 mg 08/08/24 19:11 Acetaminophen 325 Mg Tablet PO Q4H PRN Mild Pain (1-3) or Fever Hydrocodone Bitart/Acetaminophen 1 tab 08/08/24 19:11 Hydrocodone/Acetaminophen (*Crx) 5-325 Mg Tablet PO Q4H PRN Pain Rated 4-6 Amlodipine Besylate 10 mg 08/09/24 09:00 08/13/24 10:22 Amlodipine Besylate 10 Mg Tablet PO 10 mg DAILY NERY Administration Aspirin 81 mg 08/09/24 09:00 08/13/24 10:22 Aspirin 81 Mg Chewable Tablet PO 81 mg DAILY NERY Administration Calcium Carbonate 200 mg 08/09/24 09:35 08/12/24 20:36 Calcium Carbonate (Tums) 500 Mg (200 Mg Elemental) PO 200 mg Q6H PRN Administration Indigestion Cyclobenzaprine HCl 10 mg 08/08/24 23:30 Cyclobenzaprine Hcl 10 Mg Tablet PO BID PRN muscle spasm Folic Acid 1 mg 08/10/24 09:00 08/13/24 10:22 Folic Acid 1 Mg Tablet PO 1 mg DAILY NERY Administration Guaifenesin 600 mg 08/11/24 13:23 Guaifenesin 12 Hr 600 Mg Tabcr PO Q12HR PRN coughing Hydrochlorothiazide 12.5 mg 08/09/24 09:00 08/13/24 10:22 Hydrochlorothiazide 12.5 Mg Capsule PO 12.5 mg QAM NERY Administration Sodium Chloride 1,000 mls @ 75 mls/hr 08/12/24 12:05 08/13/24 02:23 Normal Saline Iv IV CONT 75 mls/hr .[id number] NERY Administration Ceftriaxone Sodium 2 gm in 100 mls @ 200 mls/hr 08/13/24 09:00 08/13/24 10:50 Rocephin 2 Gm/Ns 100 Ml IVPB Infused DAILY NERY Infusion Irbesartan 150 mg 08/09/24 09:00 08/13/24 10:22 Irbesartan 150 Mg Tablet PO 150 mg DAILY NERY Administration Ketorolac Tromethamine 15 mg 08/11/24 09:50 Ketorolac 15 Mg/Ml Vial (*Bk) IV PUSH Q6H PRN Pain Rated 4-6 Levothyroxine Sodium 12.5 mcg 08/12/24 06:30 08/13/24 05:24 Levothyroxine Sodium 12.5 Mcg Tablet PO 12.5 mcg DAILY@0630 NREY Administration Levothyroxine Sodium 75 mcg 08/12/24 06:30 08/13/24 05:24 Levothyroxine Sodium 75 Mcg Tablet PO 75 mcg DAILY@0630 NERY Administration Lisinopril 20 mg 08/09/24 09:00 08/13/24 10:22 Lisinopril 20 Mg Tablet PO 20 mg QAM NERY Administration Magnesium Oxide 400 mg 08/09/24 09:00 08/13/24 10:22 Magnesium Oxide 400 Mg Tablet PO 400 mg BID NERY Administration Morphine Sulfate 2 mg 08/08/24 19:11 Morphine Sulfate (*Crx) 2 Mg/Ml Inj IV PUSH Q2H PRN Pain Rated 7-10 Nicotine 1 patch 08/09/24 09:00 08/13/24 10:22 Nicotine (*Pbkc) 14 Mg Patch TRANSDERM 1 patch DAILY NERY Administration Ondansetron HCl 4 mg 08/08/24 19:11 Ondansetron Inj 4 Mg/2 Ml Vial IV PUSH Q4H PRN Nausea Quetiapine Fumarate 25 mg 08/12/24 21:00 08/12/24 20:35 Quetiapine Fumarate 25 Mg Tablet PO 25 mg HS NERY Administration Rosuvastatin Calcium 20 mg 08/11/24 09:00 08/13/24 10:22 Rosuvastatin 10 Mg Tablet PO 20 mg DAILY NERY Administration Radiology Results: ITS Impressions Cervical Spine CT 08/08/24 13:28 IMPRESSION: 1. No fracture 2. Severe cervical spondylosis. 3. Cervical dextroscoliosis and kyphosis. Head CT 08/08/24 13:29 Impression: No intracranial hemorrhage, mass, or acute infarct. Atrophy and chronic white matter changes, as above. Ankle X-Ray 08/08/24 13:42 IMPRESSION: 1. Heterotopic ossification distal to medial and lateral malleoli, likely chronic. No specific evidence of acute fracture. Shoulder X-Ray 08/08/24 13:45 IMPRESSION: 1. Polyarticular osteoarthritis. Head/Neck CTA 08/10/24 15:38 IMPRESSION: No acute intracranial process. No large vessel intracranial occlusion, high-grade intracranial stenosis, or aneurysm. No carotid or vertebral artery occlusion, dissection, or significant stenosis, within the constraints of mild motion artifact described above. Soft tissue stranding/edema along the left previous muscle and anterior to the left clavicle. Chest X-Ray 08/12/24 07:44 Impression: Clear lungs. Possible COPD. Brain MRI 08/12/24 08:58 IMPRESSION: 1. Brain atrophy with deep white matter ischemic changes. White matter disease is not excluded. 2. No acute infarct or hemorrhage. No masses or enhancing lesions seen. Modified Barium Swallow 08/12/24 11:44 IMPRESSION: Mild oropharyngeal dysphagia with flash laryngeal penetration without aspiration. Please correlate with speech pathologist findings and specific feeding recommendations. Labs Labs: Laboratory Results - last 24 hr 08/12/24 08/13/24 04:59 05:11 WBC 10.9 H RBC 3.61 L Hgb 11.0 L Hct 34.1 L MCV 94.5 MCH 30.5 MCHC 32.3 RDW 13.9 Plt Count 269 MPV 10.6 H Immature Gran % (Auto) 0.5 Neut % (Auto) 75.5 H Lymph % (Auto) 12.6 L [place] % (Auto) 8.0 Eos % (Auto) 2.9 Baso % (Auto) 0.5 Lymph # (Auto) 1.38 [place] # (Auto) 0.9 H Eos # (Auto) 0.3 Baso # (Auto) 0.1 Abs Immat Gran (auto) 0.06 H Absolute Neuts (auto) 8.2 H Absolute Nucleated RBC 0.000 Nucleated RBC % 0.0 Sodium 140 Potassium 3.0 L Chloride 101 Carbon Dioxide 29 Anion Gap 10 BUN 27 H Creatinine 0.96 Estim Creat Clear Calc 71 Estimated GFR > 60 Glucose 104 Calcium 8.4 Total Bilirubin 1.0 AST 92 H ALT 89 H Alkaline Phosphatase 110 Total Protein 7.0 Albumin 3.1 L Vitamin B12 473.0 Folate 6.3 Quality VTE Prophylaxis VTE prophylaxis: mechanical ordered
[2024-08-13 16:07] VITALS: BP 137/86; PULSE 86; RESP 18; O2SAT 95
[2024-08-13 16:38] VITALS: BP 137/92; PULSE 90; RESP 20; O2SAT 96
[2024-08-13 17:14] LABS: Glucose CSF 54 mg/dL (40-70); Total Protein CSF 189 mg/dL (12-60)
[2024-08-13 17:58] LABS: Appearance CSF Clear (Clear); CSF source CSF; Color CSF Colorless (Colorless); Lymphocytes CSF 5 % (40-80); Macrophages CSF 13; Monocytes CSF 1 % (15-45); Neutrophils CSF 81 % (0-6); Nucleated Cell CSF 75 /uL (0-5); Red Blood Cell CSF 31 (0-2)
[2024-08-13 21:39] VITALS: BP 128/69; PULSE 84; RESP 20; TEMP 36.2; O2SAT 99
[2024-08-13] MEDS: QUEtiapine FUMARATE 25 MG TABLET PO (21:59)
[2024-08-14 06:00] VITALS: BP 126/74; PULSE 80; RESP 16; TEMP 36.3; O2SAT 94
[2024-08-14 06:16] LABS: Basophils Absolute Auto 0.1 K/mm3 (0.0-0.1); Basophils Percent Auto 0.6 % (0.2-1.2); Eosinophils Absolute Auto 0.3 K/mm3 (0-0.3); Eosinophils Percent Auto 2.5 % (0-4.4); Hematocrit 34.4 % (42.0-52.0); Hemoglobin 11.4 g/dL (14.0-18.0); Immature Granulocyte Absolute 0.07 K/mm3 (0.00-0.031); Immature Granulocyte Percent A 0.6 % (0-0.5); Lymphocytes Absolute Auto 1.34 K/mm3 (0.9-3.2); Lymphocytes Percent Auto 11.8 % (18.3-44.2); Mean Corpuscular HGB Conc 33.1 g/dl (32-36); Mean Corpuscular Hemoglobin 30.7 pg (26-34); Mean Corpuscular Volume 92.7 fl (80-100); Mean Platelet Volume 10.7 fl (7.4-10.4); Monocytes Absolute Auto 0.8 K/mm3 (0.1-0.6); Monocytes Percent Auto 7.3 % (2.6-8.5); Neutrophils Absolute Auto 8.7 K/mm3 (1.3-6.7); Neutrophils Percent Auto 77.2 % (45.5-73.1); Platelet Count Result 322 k/mm3 (150-375); Red Blood Count 3.71 M/mm3 (4.6-6.20); Red Cell Distribution Width 13.9 % (11.5-14.5); White Blood Count 11.3 K/mm3 (4.5-10.0)
[2024-08-14] MEDS: LEVOTHYROXINE SODIUM 75 MCG TABLET PO (06:26)
[2024-08-14] MEDS: LEVOTHYROXINE SODIUM 12.5 MCG TABLET PO (06:26)
[2024-08-14 06:47] LABS: Alanine Aminotransferase 104 U/L (6-50); Albumin Level 3.1 g/dL (3.5-5.1); Alkaline Phosphatase 116 U/L (38-126); Anion Gap 7 mmol/L (4-12); Aspartate Amino Transferase 92 U/L (17-59); Bilirubin,Total 0.8 mg/dL (0.2-1.3); Blood Urea Nitrogen 22 mg/dL (9-20); Calcium 8.4 mg/dL (8.4-10.2); Carbon Dioxide 30 mmol/L (22-30); Chloride 98 mmol/L (98-107); Estimated CRCL calculation 66 ml/min; Estimated Glomerular Filt Rate > 60; Glucose 106 mg/dL (65-110); Magnesium 1.7 mg/dL (1.6-2.3); Potassium 3.2 mmol/L (3.4-5.0); Sodium 135 mmol/L (137-145)
[2024-08-14] MEDS: SODIUM CHLORIDE 0.9% IV 1,000 ML 75 ML IV CONT ×2 (08:00→20:48)
[2024-08-14] MEDS: FOLIC ACID 1 MG TABLET PO (08:33)
[2024-08-14] MEDS: MAGNESIUM OXIDE 400 MG TABLET PO ×2 (08:33→18:11)
[2024-08-14] MEDS: IRBESARTAN 150 MG TABLET PO (08:33)
[2024-08-14] MEDS: amLODIPine BESYLATE 10 MG TABLET PO (08:33)
[2024-08-14] MEDS: ROSUVASTATIN 10 MG TABLET 20 MG PO (08:33)
[2024-08-14] MEDS: hydroCHLOROthiazide 12.5 MG CAPSULE PO (08:33)
[2024-08-14] MEDS: ASPIRIN 81 MG CHEWABLE TABLET PO (08:33)
[2024-08-14] MEDS: NICOTINE (*PBKC) 14 MG PATCH 1 PATCH TRANSDERM (08:34)
[2024-08-14] MEDS: lisinopriL 20 MG TABLET PO (08:34)
[2024-08-14] MEDS: cefTRIAXone 2 GM/NS 100 ML 2 GM/100 ML BAG IVPB ×2 (08:34→20:44)
--- NOTE | 2024-08-14 12:08 | WPDNEUROPN ---
Subjective Date/time seen: 08/14/24 12:08 Interval history: seen initially for the chronic pain with recurrent muscle spasm and use of multiple pain medication to overcome the CT scan of the head was suggestive chronic white matter changes but because of the change in the mental status spinal tap was none which revealed opening pressure of 22, 31 RBCs 75 total nucleated cell with 81 neutrophils 5 lymphocytes inside 54 glucose and total protein of 189, his brain MRI was only suggestive brain atrophy with white matter changes but considering the fluid abnormalities which is rather complicated because of the underlying spine surgeries he will be started on the antibiotics for the infection his neuro exam remains unchanged. Objective Data Vital Signs Vital Signs: Vital Signs - 24 hr 08/13/24 14:00 08/13/24 16:07 08/13/24 16:38 Temperature 37.0 C Pulse Rate 86 86 90 Respiratory Rate 18 18 20 Blood Pressure 118/73 137/86 137/92 H Pulse Oximetry 95 95 96 Oxygen Delivery 08/13/24 20:00 08/13/24 21:39 08/14/24 06:00 Temperature 36.2 C L 36.3 C L Pulse Rate 84 80 Respiratory Rate 20 16 Blood Pressure 128/69 126/74 Pulse Oximetry 99 94 Oxygen Delivery Room Air 08/14/24 08:35 Temperature Pulse Rate Respiratory Rate Blood Pressure Pulse Oximetry Oxygen Delivery Room Air Intake/Output Intake/Output: Intake & Output 08/11/24 08/12/24 08/13/24 08/14/24 23:59 23:59 23:59 23:59 Intake Total 300 2690 2542.5 850 Output Total 700 231 959 8990 Balance -400 2490 1842.5 -150 Meds/Results Medications: Active Medications Generic Name Dose Route Start Last Admin Trade Name Freq PRN Reason Stop Dose Admin Acetaminophen 650 mg 08/08/24 19:11 Acetaminophen 325 Mg Tablet PO Q4H PRN Mild Pain (1-3) or Fever Hydrocodone Bitart/Acetaminophen 1 tab 08/08/24 19:11 Hydrocodone/Acetaminophen (*Crx) 5-325 Mg Tablet PO Q4H PRN Pain Rated 4-6 Amlodipine Besylate 10 mg 08/09/24 09:00 08/14/24 08:33 Amlodipine Besylate 10 Mg Tablet PO 10 mg DAILY NERY Administration Aspirin 81 mg 08/09/24 09:00 08/14/24 08:33 Aspirin 81 Mg Chewable Tablet PO 81 mg DAILY NERY Administration Calcium Carbonate 200 mg 08/09/24 09:35 08/12/24 20:36 Calcium Carbonate (Tums) 500 Mg (200 Mg Elemental) PO 200 mg Q6H PRN Administration Indigestion Cyclobenzaprine HCl 10 mg 08/08/24 23:30 Cyclobenzaprine Hcl 10 Mg Tablet PO BID PRN muscle spasm Enoxaparin Sodium 40 mg 08/15/24 09:00 Enoxaparin 40 Mg/0.4 Ml Syringe SUB-Q DAILY [facility] Folic Acid 1 mg 08/10/24 09:00 08/14/24 08:33 Folic Acid 1 Mg Tablet PO 1 mg DAILY NERY Administration Guaifenesin 600 mg 08/11/24 13:23 Guaifenesin 12 Hr 600 Mg Tabcr PO Q12HR PRN coughing Hydrochlorothiazide 12.5 mg 08/09/24 09:00 08/14/24 08:33 Hydrochlorothiazide 12.5 Mg Capsule PO 12.5 mg QAM NERY Administration Sodium Chloride 1,000 mls @ 75 mls/hr 08/12/24 12:05 08/13/24 19:01 Normal Saline Iv IV CONT 75 mls/hr .[id number] [facility] Administration Ceftriaxone Sodium 2 gm in 100 mls @ 200 mls/hr 08/14/24 21:00 Rocephin 2 Gm/Ns 100 Ml IVPB Q12HR [facility] Irbesartan 150 mg 08/09/24 09:00 08/14/24 08:33 Irbesartan 150 Mg Tablet PO 150 mg DAILY NERY Administration Ketorolac Tromethamine 15 mg 08/11/24 09:50 Ketorolac 15 Mg/Ml Vial (*[facility]) IV PUSH Q6H PRN Pain Rated 4-6 Levothyroxine Sodium 12.5 mcg 08/12/24 06:30 08/14/24 06:26 Levothyroxine Sodium 12.5 Mcg Tablet PO 12.5 mcg DAILY@0630 NERY Administration Levothyroxine Sodium 75 mcg 08/12/24 06:30 08/14/24 06:26 Levothyroxine Sodium 75 Mcg Tablet PO 75 mcg DAILY@0630 NERY Administration Lisinopril 20 mg 08/09/24 09:00 08/14/24 08:34 Lisinopril 20 Mg Tablet PO 20 mg QAM NERY Administration Magnesium Oxide 400 mg 08/09/24 09:00 08/14/24 08:33 Magnesium Oxide 400 Mg Tablet PO 400 mg BID NERY Administration Morphine Sulfate 2 mg 08/08/24 19:11 Morphine Sulfate (*Crx) 2 Mg/Ml Inj IV PUSH Q2H PRN Pain Rated 7-10 Nicotine 1 patch 08/09/24 09:00 08/14/24 08:34 Nicotine (*Pbkc) 14 Mg Patch TRANSDERM 1 patch DAILY NERY Administration Ondansetron HCl 4 mg 08/08/24 19:11 Ondansetron Inj 4 Mg/2 Ml Vial IV PUSH Q4H PRN Nausea Quetiapine Fumarate 25 mg 08/12/24 21:00 08/13/24 21:59 Quetiapine Fumarate 25 Mg Tablet PO 25 mg HS NERY Administration Rosuvastatin Calcium 20 mg 08/11/24 09:00 08/14/24 08:33 Rosuvastatin 10 Mg Tablet PO 20 mg DAILY NERY Administration Radiology Results: ITS Impressions Cervical Spine CT 08/08/24 13:28 IMPRESSION: 1. No fracture 2. Severe cervical spondylosis. 3. Cervical dextroscoliosis and kyphosis. Head CT 08/08/24 13:29 Impression: No intracranial hemorrhage, mass, or acute infarct. Atrophy and chronic white matter changes, as above. Ankle X-Ray 08/08/24 13:42 IMPRESSION: 1. Heterotopic ossification distal to medial and lateral malleoli, likely chronic. No specific evidence of acute fracture. Shoulder X-Ray 08/08/24 13:45 IMPRESSION: 1. Polyarticular osteoarthritis. Head/Neck CTA 08/10/24 15:38 IMPRESSION: No acute intracranial process. No large vessel intracranial occlusion, high-grade intracranial stenosis, or aneurysm. No carotid or vertebral artery occlusion, dissection, or significant stenosis, within the constraints of mild motion artifact described above. Soft tissue stranding/edema along the left previous muscle and anterior to the left clavicle. Chest X-Ray 08/12/24 07:44 Impression: Clear lungs. Possible COPD. Brain MRI 08/12/24 08:58 IMPRESSION: 1. Brain atrophy with deep white matter ischemic changes. White matter disease is not excluded. 2. No acute infarct or hemorrhage. No masses or enhancing lesions seen. Modified Barium Swallow 08/12/24 11:44 IMPRESSION: Mild oropharyngeal dysphagia with flash laryngeal penetration without aspiration. Please correlate with speech pathologist findings and specific feeding recommendations. Lumbar Puncture 08/13/24 17:33 IMPRESSION: 1. Successful fluoro-guided lumbar puncture with mildly elevated opening pressure of 22 cm water. Labs Labs: Laboratory Results - last 24 hr 08/13/24 08/14/24 16:33 05:40 WBC 11.3 H RBC 3.71 L Hgb 11.4 L Hct 34.4 L MCV 92.7 MCH 30.7 MCHC 33.1 RDW 13.9 Plt Count 322 MPV 10.7 H Immature Gran % (Auto) 0.6 H Neut % (Auto) 77.2 H Lymph % (Auto) 11.8 L [place] % (Auto) 7.3 Eos % (Auto) 2.5 Baso % (Auto) 0.6 Lymph # (Auto) 1.34 [place] # (Auto) 0.8 H Eos # (Auto) 0.3 Baso # (Auto) 0.1 Abs Immat Gran (auto) 0.07 H Absolute Neuts (auto) 8.7 H Absolute Nucleated RBC 0.000 Nucleated RBC % 0.0 Sodium 135 L Potassium 3.2 L Chloride 98 Carbon Dioxide 30 Anion Gap 7 BUN 22 H Creatinine 1.03 Estim Creat Clear Calc 66 Estimated GFR > 60 Glucose 106 Calcium 8.4 Magnesium 1.7 Total Bilirubin 0.8 AST 92 H ALT 104 H Alkaline Phosphatase 116 Total Protein 7.0 Albumin 3.1 L CSF Source Csf CSF Appearance Clear CSF Color Colorless CSF RBC 31 H CSF Tot Nucleated Cells 75 H CSF Neutrophils 81 H CSF Lymphocytes 5 L CSF Monocytes 1 L CSF Macrophages 13 CSF Glucose 54 CSF Total Protein 189 H
[2024-08-14] MEDS: POTASSIUM CHLORIDE 20 MEQ PACKET (FOR LIQUID) 40 MEQ PO (12:21)
--- NOTE | 2024-08-14 12:53 | P.PNIM_ITS ---
Progress Note: A&P Assessment and Plan (1) Altered mental state: Code(s): R41.82 - Altered mental status, unspecified Status: Acute Assessment and Plan: Likely from Meningitis CSF analysis showed elevated WBC and Protein likely bacterial Awaiting CSF cultures Abx adjusted to Ceftriaxone, Ampicillin, Vanc and Dexamethasone (2) Fall from ground level: Code(s): W18.30XA - Fall on same level, unspecified, initial encounter Status: Acute Assessment and Plan: Patient sustained a ground level fall after taking muscle relaxers and trazodone, became dizzy falling on his left side and twisting his left ankle. 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 * Ice and elevate * Michele wrap for support * will need crutch training * PT and OT ordered * continue pain control (4) Left shoulder pain: Code(s): M25.512 - Pain in left shoulder Status: Acute Assessment and Plan: * left shoulder x-ray shown polyarticular osteoarthritis * continue pain control (5) Generalized weakness: Code(s): R53.1 - Weakness Status: Acute Assessment and Plan: * PT and OT ordered * Will need crutch training * care coordination following- working on placement (6) Hyperlipidemia: Code(s): E78.5 - Hyperlipidemia, unspecified Status: Acute Assessment and Plan: * continue aspirin and rosuvastatin (7) Hypertension: Code(s): I10 - Essential (primary) hypertension Status: Acute Assessment and Plan: * blood pressures ranging 114/58 to 149/90 * continue lisinopril, amlodipine, hydrochlorothiazide,and Avapro (8) Hypothyroidism: Code(s): E03.9 - Hypothyroidism, unspecified Status: Acute Assessment and Plan: * continue Synthroid * tsh rechecked- 9.890 * will increase to 87.5 mcg * will need recheck in Plan DVT prophylaxis on Sq lovenox Subjective Date/time seen: 08/14/24 12:53 Interval history: Patient comfortable at bedside and more awake today. Review of Systems Review of Systems: ongoing confused All systems reviewed & are unremarkable except as noted in HPI and below Exam Narrative: General: Pt looks confused Cardiac: Normal S1 and S2. RRR, No murmur, gallops or friction rubs, peripheral pulses intact. Respiratory: ls coarse, no other adventitious lung sounds, currently on room air Gastrointestinal: soft, non-distended, non-tender, normoactive bowel sounds. : voiding without difficulty. Extremities: moves all extremities well,mild edema left ankle Skin: clean, dry, intact. No wounds or lesions. Neuro: disoriented, cranial nerves intact, no neuro deficits. Psych: normal mood, normal affect, interactive Objective Data Vital Signs Vital Signs: Vital Signs - 24 hr 08/13/24 14:00 08/13/24 16:07 08/13/24 16:38 Temperature 98.6 F Pulse Rate 86 86 90 Respiratory Rate 18 18 20 Blood Pressure 118/73 137/86 137/92 H Pulse Oximetry 95 95 96 Oxygen Delivery 08/13/24 20:00 08/13/24 21:39 08/14/24 06:00 Temperature 97.1 F L 97.4 F L Pulse Rate 84 80 Respiratory Rate 20 16 Blood Pressure 128/69 126/74 Pulse Oximetry 99 94 Oxygen Delivery Room Air 08/14/24 08:35 Temperature Pulse Rate Respiratory Rate Blood Pressure Pulse Oximetry Oxygen Delivery Room Air Intake/Output Intake/Output: Intake & Output 08/11/24 08/12/24 08/13/24 08/14/24 23:59 23:59 23:59 23:59 Intake Total 300 2690 2542.5 1823.7 Output Total 700 717 318 3442 Balance -400 2490 1842.5 823.7 Meds/Results Medications: Active Medications Generic Name Dose Route Start Last Admin Trade Name Freq PRN Reason Stop Dose Admin Acetaminophen 650 mg 08/08/24 19:11 Acetaminophen 325 Mg Tablet PO Q4H PRN Mild Pain (1-3) or Fever Hydrocodone Bitart/Acetaminophen 1 tab 08/08/24 19:11 Hydrocodone/Acetaminophen (*Crx) 5-325 Mg Tablet PO Q4H PRN Pain Rated 4-6 Amlodipine Besylate 10 mg 08/09/24 09:00 08/14/24 08:33 Amlodipine Besylate 10 Mg Tablet PO 10 mg DAILY NERY Administration Aspirin 81 mg 08/09/24 09:00 08/14/24 08:33 Aspirin 81 Mg Chewable Tablet PO 81 mg DAILY [facility] Administration Calcium Carbonate 200 mg 08/09/24 09:35 08/12/24 20:36 Calcium Carbonate (Tums) 500 Mg (200 Mg Elemental) PO 200 mg Q6H PRN Administration Indigestion Cyclobenzaprine HCl 10 mg 08/08/24 23:30 Cyclobenzaprine Hcl 10 Mg Tablet PO BID PRN muscle spasm Enoxaparin Sodium 40 mg 08/15/24 09:00 Enoxaparin 40 Mg/0.4 Ml Syringe SUB-Q DAILY [facility] Folic Acid 1 mg 08/10/24 09:00 08/14/24 08:33 Folic Acid 1 Mg Tablet PO 1 mg DAILY [facility] Administration Guaifenesin 600 mg 08/11/24 13:23 Guaifenesin 12 Hr 600 Mg Tabcr PO Q12HR PRN coughing Hydrochlorothiazide 12.5 mg 08/09/24 09:00 08/14/24 08:33 Hydrochlorothiazide 12.5 Mg Capsule PO 12.5 mg QAM [facility] Administration Sodium Chloride 1,000 mls @ 75 mls/hr 08/12/24 12:05 08/14/24 08:00 Normal Saline Iv IV CONT 75 mls/hr .[id number] [facility] Administration Ceftriaxone Sodium 2 gm in 100 mls @ 200 mls/hr 08/14/24 21:00 Rocephin 2 Gm/Ns 100 Ml IVPB Q12HR NERY Ampicillin Sodium 2 gm in 100 mls @ 200 mls/hr 08/14/24 12:40 Ampicillin 2 Gm/Ns 100 Ml IVPB Q4H [facility] Irbesartan 150 mg 08/09/24 09:00 08/14/24 08:33 Irbesartan 150 Mg Tablet PO 150 mg DAILY [facility] Administration Ketorolac Tromethamine 15 mg 08/11/24 09:50 Ketorolac 15 Mg/Ml Vial (*[facility]) IV PUSH Q6H PRN Pain Rated 4-6 Levothyroxine Sodium 12.5 mcg 08/12/24 06:30 08/14/24 06:26 Levothyroxine Sodium 12.5 Mcg Tablet PO 12.5 mcg DAILY@0630 [facility] Administration Levothyroxine Sodium 75 mcg 08/12/24 06:30 08/14/24 06:26 Levothyroxine Sodium 75 Mcg Tablet PO 75 mcg DAILY@0630 NERY Administration Lisinopril 20 mg 08/09/24 09:00 08/14/24 08:34 Lisinopril 20 Mg Tablet PO 20 mg QAM NERY Administration Magnesium Oxide 400 mg 08/09/24 09:00 08/14/24 08:33 Magnesium Oxide 400 Mg Tablet PO 400 mg BID NERY Administration Morphine Sulfate 2 mg 08/08/24 19:11 Morphine Sulfate (*Crx) 2 Mg/Ml Inj IV PUSH Q2H PRN Pain Rated 7-10 Nicotine 1 patch 08/09/24 09:00 08/14/24 08:34 Nicotine (*Pbkc) 14 Mg Patch TRANSDERM 1 patch DAILY [facility] Administration Ondansetron HCl 4 mg 08/08/24 19:11 Ondansetron Inj 4 Mg/2 Ml Vial IV PUSH Q4H PRN Nausea Quetiapine Fumarate 25 mg 08/12/24 21:00 08/13/24 21:59 Quetiapine Fumarate 25 Mg Tablet PO 25 mg HS [facility] Administration Rosuvastatin Calcium 20 mg 08/11/24 09:00 08/14/24 08:33 Rosuvastatin 10 Mg Tablet PO 20 mg DAILY [facility] Administration Vancomycin HCl 1 each 08/14/24 12:40 Vancomycin Pharmacist To Dose IVPB PER PROTOCOL [facility] Radiology Results: ITS Impressions Cervical Spine CT 08/08/24 13:28 IMPRESSION: 1. No fracture 2. Severe cervical spondylosis. 3. Cervical dextroscoliosis and kyphosis. Head CT 08/08/24 13:29 Impression: No intracranial hemorrhage, mass, or acute infarct. Atrophy and chronic white matter changes, as above. Ankle X-Ray 08/08/24 13:42 IMPRESSION: 1. Heterotopic ossification distal to medial and lateral malleoli, likely chronic. No specific evidence of acute fracture. Shoulder X-Ray 08/08/24 13:45 IMPRESSION: 1. Polyarticular osteoarthritis. Head/Neck CTA 08/10/24 15:38 IMPRESSION: No acute intracranial process. No large vessel intracranial occlusion, high-grade intracranial stenosis, or aneurysm. No carotid or vertebral artery occlusion, dissection, or significant stenosis, within the constraints of mild motion artifact described above. Soft tissue stranding/edema along the left previous muscle and anterior to the left clavicle. Chest X-Ray 08/12/24 07:44 Impression: Clear lungs. Possible COPD. Brain MRI 08/12/24 08:58 IMPRESSION: 1. Brain atrophy with deep white matter ischemic changes. White matter disease is not excluded. 2. No acute infarct or hemorrhage. No masses or enhancing lesions seen. Modified Barium Swallow 08/12/24 11:44 IMPRESSION: Mild oropharyngeal dysphagia with flash laryngeal penetration without aspiration. Please correlate with speech pathologist findings and specific feeding recommendations. Lumbar Puncture 08/13/24 17:33 IMPRESSION: 1. Successful fluoro-guided lumbar puncture with mildly elevated opening pressure of 22 cm water. Labs Labs: Laboratory Results - last 24 hr 08/13/24 08/14/24 16:33 05:40 WBC 11.3 H RBC 3.71 L Hgb 11.4 L Hct 34.4 L MCV 92.7 MCH 30.7 MCHC 33.1 RDW 13.9 Plt Count 322 MPV 10.7 H Immature Gran % (Auto) 0.6 H Neut % (Auto) 77.2 H Lymph % (Auto) 11.8 L [place] % (Auto) 7.3 Eos % (Auto) 2.5 Baso % (Auto) 0.6 Lymph # (Auto) 1.34 [place] # (Auto) 0.8 H Eos # (Auto) 0.3 Baso # (Auto) 0.1 Abs Immat Gran (auto) 0.07 H Absolute Neuts (auto) 8.7 H Absolute Nucleated RBC 0.000 Nucleated RBC % 0.0 Sodium 135 L Potassium 3.2 L Chloride 98 Carbon Dioxide 30 Anion Gap 7 BUN 22 H Creatinine 1.03 Estim Creat Clear Calc 66 Estimated GFR > 60 Glucose 106 Calcium 8.4 Magnesium 1.7 Total Bilirubin 0.8 AST 92 H ALT 104 H Alkaline Phosphatase 116 Total Protein 7.0 Albumin 3.1 L CSF Source Csf CSF Appearance Clear CSF Color Colorless CSF RBC 31 H CSF Tot Nucleated Cells 75 H CSF Neutrophils 81 H CSF Lymphocytes 5 L CSF Monocytes 1 L CSF Macrophages 13 CSF Glucose 54 CSF Total Protein 189 H Quality VTE Prophylaxis VTE prophylaxis: mechanical ordered
[2024-08-14] MEDS: dexAMETHasone 2 MG TABLET 10 MG PO (13:46)
[2024-08-14] MEDS: HYDROcodone/acetaminophen (*CRX) 5-325 MG TABLET 1 TAB PO (13:47)
[2024-08-14] MEDS: AMPICILLIN 2 GM/NS 100 ML 2 GM/100 ML BAG IVPB ×2 (13:47→20:45)
[2024-08-14 13:53] VITALS: BP 125/76; PULSE 94; TEMP 37; O2SAT 95
[2024-08-14] MEDS: VANCOMYCIN 1,250 MG/NS 250 ML 1,250 MG/250 ML BAG 166.67 MG IVPB ×2 (15:28→18:10)
[2024-08-14] MEDS: CALCIUM CARBONATE (TUMS) 500 MG (200 MG ELEMENTAL) PO (18:13)
[2024-08-14 20:20] VITALS: BP 145/82; PULSE 78; RESP 17; TEMP 36.3; O2SAT 96
[2024-08-14] MEDS: QUEtiapine FUMARATE 25 MG TABLET PO (20:45)
[2024-08-15] MEDS: AMPICILLIN 2 GM/NS 100 ML 2 GM/100 ML BAG IVPB ×6 (02:34→20:28)
[2024-08-15] MEDS: LEVOTHYROXINE SODIUM 75 MCG TABLET PO (05:31)
[2024-08-15] MEDS: LEVOTHYROXINE SODIUM 12.5 MCG TABLET PO (05:31)
[2024-08-15 05:57] VITALS: BP 144/84; PULSE 85; RESP 18; TEMP 36.3; O2SAT 98
[2024-08-15 06:23] LABS: Basophils Percent Auto 0.2 % (0.2-1.2); Hematocrit 34.5 % (42.0-52.0); Hemoglobin 11.2 g/dL (14.0-18.0); Immature Granulocyte Absolute 0.09 K/mm3 (0.00-0.031); Immature Granulocyte Percent A 0.7 % (0-0.5); Lymphocytes Absolute Auto 0.82 K/mm3 (0.9-3.2); Lymphocytes Percent Auto 6.5 % (18.3-44.2); Mean Corpuscular HGB Conc 32.5 g/dl (32-36); Mean Corpuscular Hemoglobin 29.9 pg (26-34); Mean Platelet Volume 10.6 fl (7.4-10.4); Monocytes Absolute Auto 0.5 K/mm3 (0.1-0.6); Neutrophils Absolute Auto 11.2 K/mm3 (1.3-6.7); Neutrophils Percent Auto 88.6 % (45.5-73.1); Platelet Count Result 409 k/mm3 (150-375); Red Blood Count 3.75 M/mm3 (4.6-6.20); Red Cell Distribution Width 13.5 % (11.5-14.5); White Blood Count 12.6 K/mm3 (4.5-10.0)
[2024-08-15 06:37] LABS: Potassium 4.1 mmol/L (3.4-5.0)
[2024-08-15 06:59] LABS: Lactic Acid Reflex 0.6 mmol/L (0.7-2.0)
[2024-08-15 07:07] LABS: Alanine Aminotransferase 85 U/L (6-50); Albumin Level 3.2 g/dL (3.5-5.1); Alkaline Phosphatase 105 U/L (38-126); Anion Gap 8 mmol/L (4-12); Aspartate Amino Transferase 53 U/L (17-59); Bilirubin,Total 0.5 mg/dL (0.2-1.3); Blood Urea Nitrogen 21 mg/dL (9-20); Calcium 8.7 mg/dL (8.4-10.2); Carbon Dioxide 27 mmol/L (22-30); Chloride 100 mmol/L (98-107); Estimated CRCL calculation 64 ml/min; Estimated Glomerular Filt Rate > 60; Glucose 135 mg/dL (65-110); Magnesium 1.7 mg/dL (1.6-2.3); Sodium 135 mmol/L (137-145)
[2024-08-15] MEDS: NICOTINE (*PBKC) 14 MG PATCH 1 PATCH TRANSDERM (08:43)
[2024-08-15] MEDS: dexAMETHasone 2 MG TABLET 10 MG PO (08:43)
[2024-08-15] MEDS: cefTRIAXone 2 GM/NS 100 ML 2 GM/100 ML BAG IVPB ×2 (08:43→21:25)
[2024-08-15 08:45] VITALS: RESP 16; O2SAT 96
[2024-08-15] MEDS: hydroCHLOROthiazide 12.5 MG CAPSULE PO (08:45)
[2024-08-15] MEDS: MAGNESIUM OXIDE 400 MG TABLET PO ×2 (08:45→17:25)
[2024-08-15] MEDS: lisinopriL 20 MG TABLET PO (08:45)
[2024-08-15] MEDS: FOLIC ACID 1 MG TABLET PO (08:45)
[2024-08-15] MEDS: IRBESARTAN 150 MG TABLET PO (08:45)
[2024-08-15] MEDS: ASPIRIN 81 MG CHEWABLE TABLET PO (08:45)
[2024-08-15] MEDS: amLODIPine BESYLATE 10 MG TABLET PO (08:45)
[2024-08-15] MEDS: ROSUVASTATIN 10 MG TABLET 20 MG PO (08:48)
[2024-08-15] MEDS: ENOXAPARIN 40 MG/0.4 ML SYRINGE SUB-Q (08:51)
[2024-08-15] MEDS: VANCOMYCIN 1,500 MG/NS 500 ML 1,500 MG/500 ML BAG 250 MG IVPB (09:48)
--- NOTE | 2024-08-15 12:21 | WPDNEUROLOGY ---
Neurology EEG Report General Information Date of Study: 08/15/24 TEST Electroencephalogram DIAGNOSIS altered mental status CONDITION OF RECORDING bedside recording EEG NUMBER [id number] CLINICAL HISTORY patient admitted with complaints of extreme weakness and changes in mental status EEG DESCRIPTION During wakefulness the background activity consists of posterior dominant rhythm in theta range at 7 hertz with an amplitude of 15-30 microvolts which appears mildly formed. Anteriorly low amplitude mixed frequency activity was seen. There is no significant anteroposterior gradient. Hyperventilation or photic stimulation were not performed. Patient did not progress to stage 2 sleep. IMPRESSION This is a mild abnormal EEG due to presence of diffuse background slowing suggestive of generalized encephalopathy however no focal or paroxysmal abnormalities were seen.
--- NOTE | 2024-08-15 12:26 | WPDNEUROPN ---
Progress Note: A&P Assessment and Plan (1) Meningitis: Code(s): G03.9 - Meningitis, unspecified Status: Acute Plan The patient is on antibiotic coverage for bacterial meningitis while we wait for the cultures. I agree with the same. It seems to doing fairly well and in fact is anxious to go home in which case the duration of the antibiotics will need to be decided probably around 14 days unless her cultures come back the particular pathogen. Current medications include ceftriaxone, dexamethasone, vancomycin. Subjective Date/time seen: 08/15/24 12:26 Interval history: The patient is 69-year-old male with history of generalized weakness and changes in mental status with which he presented to the hospital. Currently it was noted that he has fallen 4 5 days prior to that and he also suffers of chronic pain. His white cell count was elevated at 14.5. He had complaints of pain in the left ankle and left shoulder. CT scan of the head was negative. MRI of the brain did not show any acute findings however moderate degree of white matter changes were seen. Previously his liver enzymes were slightly high but now they have returned to normal. LDL was 45 TSH was 9.89. Spinal tap was done which shows white cell count was 75 with predominant polymorphous. Protein a 189. He has been diagnosed to have bacterial meningitis a and is currently on combination of antibiotics to cover various pathogen until the cultures come back. CSF shows 81% neutrophils and 5% lymphocytes glucose was 54. Review of Systems Review of Systems: All systems reviewed & are unremarkable except as noted in HPI and below Exam Const: General: cooperative, well developed and alert Orientation/consciousness: patient oriented x3 HENMT: Head: atraumatic Eyes: Alignment and Position: position normal Pupils: Equal, round and reactive pupils present EOM: EOMs intact bilaterally Neck: Neck: supple Resp: Effort & Inspection: normal respiratory effort Neuro: General: patient oriented x3 Cranial nerves: Yes CN's II-XII intact bilaterally, Yes facial sensation intact/muscles of mastication intact, Yes facial symmetry and Yes Midline tongue present Cognition (Neuro): normal cognition Speech: normal speech Motor exam (neuro): 5/5 motor strength present throughout Coordination: [id number] test normal and Normal rapid alternating movements of the distal upper extremity present (Neuro) Objective Data Vital Signs Vital Signs: Vital Signs - 24 hr 08/14/24 13:53 08/14/24 20:00 08/14/24 20:20 Temperature 98.6 F 97.4 F L Pulse Rate 94 78 Respiratory Rate 17 Blood Pressure 125/76 145/82 H Pulse Oximetry 95 96 Oxygen Delivery Room Air 08/15/24 05:57 Temperature 97.4 F L Pulse Rate 85 Respiratory Rate 18 Blood Pressure 144/84 H Pulse Oximetry 98 Oxygen Delivery Intake/Output Intake/Output: Intake & Output 08/12/24 08/13/24 08/14/24 08/15/24 23:59 23:59 23:59 23:59 Intake Total 2690 2542.5 5113.7 2055 Output Total 694 660 7554 1000 Balance 2490 1842.5 3313.7 1055 Meds/Results Medications: Active Medications Generic Name Dose Route Start Last Admin Trade Name Freq PRN Reason Stop Dose Admin Acetaminophen 650 mg 08/08/24 19:11 Acetaminophen 325 Mg Tablet PO Q4H PRN Mild Pain (1-3) or Fever Hydrocodone Bitart/Acetaminophen 1 tab 08/08/24 19:11 08/14/24 13:47 Hydrocodone/Acetaminophen (*Crx) 5-325 Mg Tablet PO 1 tab Q4H PRN Administration Pain Rated 4-6 Amlodipine Besylate 10 mg 08/09/24 09:00 08/15/24 08:45 Amlodipine Besylate 10 Mg Tablet PO 10 mg DAILY NERY Administration Aspirin 81 mg 08/09/24 09:00 08/15/24 08:45 Aspirin 81 Mg Chewable Tablet PO 81 mg DAILY NERY Administration Calcium Carbonate 200 mg 08/09/24 09:35 08/14/24 18:13 Calcium Carbonate (Tums) 500 Mg (200 Mg Elemental) PO 200 mg Q6H PRN Administration Indigestion Cyclobenzaprine HCl 10 mg 08/08/24 23:30 Cyclobenzaprine Hcl 10 Mg Tablet PO BID PRN muscle spasm Dexamethasone 10 mg 08/14/24 12:55 08/15/24 08:43 Dexamethasone 2 Mg Tablet PO 10 mg DAILY@0800 [facility] Administration Enoxaparin Sodium 40 mg 08/15/24 09:00 08/15/24 08:51 Enoxaparin 40 Mg/0.4 Ml Syringe SUB-Q 40 mg DAILY NERY Administration Folic Acid 1 mg 08/10/24 09:00 08/15/24 08:45 Folic Acid 1 Mg Tablet PO 1 mg DAILY NERY Administration Guaifenesin 600 mg 08/11/24 13:23 Guaifenesin 12 Hr 600 Mg Tabcr PO Q12HR PRN coughing Hydrochlorothiazide 12.5 mg 08/09/24 09:00 08/15/24 08:45 Hydrochlorothiazide 12.5 Mg Capsule PO 12.5 mg QAM NERY Administration Sodium Chloride 1,000 mls @ 75 mls/hr 08/12/24 12:05 08/15/24 11:48 Normal Saline Iv IV CONT 75 mls/hr .[id number] NERY Infusion Ceftriaxone Sodium 2 gm in 100 mls @ 200 mls/hr 08/14/24 21:00 08/15/24 09:15 Rocephin 2 Gm/Ns 100 Ml IVPB Infused Q12HR NERY Infusion Ampicillin Sodium 2 gm in 100 mls @ 200 mls/hr 08/14/24 13:00 08/15/24 09:45 Ampicillin 2 Gm/Ns 100 Ml IVPB Infused Q4HR NERY Infusion Vancomycin HCl 1,500 mg in 500 mls @ 250 mls/hr 08/15/24 08:00 08/15/24 11:48 Vancomycin 1,500 Mg/Ns 500 Ml IVPB Infused Q18H NERY Infusion Irbesartan 150 mg 08/09/24 09:00 08/15/24 08:45 Irbesartan 150 Mg Tablet PO 150 mg DAILY NERY Administration Ketorolac Tromethamine 15 mg 08/11/24 09:50 Ketorolac 15 Mg/Ml Vial (*Bk) IV PUSH Q6H PRN Pain Rated 4-6 Levothyroxine Sodium 12.5 mcg 08/12/24 06:30 08/15/24 05:31 Levothyroxine Sodium 12.5 Mcg Tablet PO 12.5 mcg DAILY@0630 NERY Administration Levothyroxine Sodium 75 mcg 08/12/24 06:30 08/15/24 05:31 Levothyroxine Sodium 75 Mcg Tablet PO 75 mcg DAILY@0630 NERY Administration Lisinopril 20 mg 08/09/24 09:00 08/15/24 08:45 Lisinopril 20 Mg Tablet PO 20 mg QAM NERY Administration Magnesium Oxide 400 mg 08/09/24 09:00 08/15/24 08:45 Magnesium Oxide 400 Mg Tablet PO 400 mg BID NERY Administration Morphine Sulfate 2 mg 08/08/24 19:11 Morphine Sulfate (*Crx) 2 Mg/Ml Inj IV PUSH Q2H PRN Pain Rated 7-10 Nicotine 1 patch 08/09/24 09:00 08/15/24 08:43 Nicotine (*Pbkc) 14 Mg Patch TRANSDERM 1 patch DAILY NERY Administration Ondansetron HCl 4 mg 08/08/24 19:11 Ondansetron Inj 4 Mg/2 Ml Vial IV PUSH Q4H PRN Nausea Quetiapine Fumarate 25 mg 08/12/24 21:00 08/14/24 20:45 Quetiapine Fumarate 25 Mg Tablet PO 25 mg HS NERY Administration Rosuvastatin Calcium 20 mg 08/11/24 09:00 08/15/24 08:48 Rosuvastatin 10 Mg Tablet PO 20 mg DAILY NERY Administration Radiology Results: ITS Impressions Cervical Spine CT 08/08/24 13:28 IMPRESSION: 1. No fracture 2. Severe cervical spondylosis. 3. Cervical dextroscoliosis and kyphosis. Head CT 08/08/24 13:29 Impression: No intracranial hemorrhage, mass, or acute infarct. Atrophy and chronic white matter changes, as above. Ankle X-Ray 08/08/24 13:42 IMPRESSION: 1. Heterotopic ossification distal to medial and lateral malleoli, likely chronic. No specific evidence of acute fracture. Shoulder X-Ray 08/08/24 13:45 IMPRESSION: 1. Polyarticular osteoarthritis. Head/Neck CTA 08/10/24 15:38 IMPRESSION: No acute intracranial process. No large vessel intracranial occlusion, high-grade intracranial stenosis, or aneurysm. No carotid or vertebral artery occlusion, dissection, or significant stenosis, within the constraints of mild motion artifact described above. Soft tissue stranding/edema along the left previous muscle and anterior to the left clavicle. Chest X-Ray 08/12/24 07:44 Impression: Clear lungs. Possible COPD. Brain MRI 08/12/24 08:58 IMPRESSION: 1. Brain atrophy with deep white matter ischemic changes. White matter disease is not excluded. 2. No acute infarct or hemorrhage. No masses or enhancing lesions seen. Modified Barium Swallow 08/12/24 11:44 IMPRESSION: Mild oropharyngeal dysphagia with flash laryngeal penetration without aspiration. Please correlate with speech pathologist findings and specific feeding recommendations. Lumbar Puncture 08/13/24 17:33 IMPRESSION: 1. Successful fluoro-guided lumbar puncture with mildly elevated opening pressure of 22 cm water. Labs Labs: Laboratory Results - last 24 hr 08/15/24 08/15/24 05:34 06:40 WBC 12.6 H RBC 3.75 L Hgb 11.2 L Hct 34.5 L MCV 92.0 MCH 29.9 MCHC 32.5 RDW 13.5 Plt Count 409 H MPV 10.6 H Immature Gran % (Auto) 0.7 H Neut % (Auto) 88.6 H Lymph % (Auto) 6.5 L [place] % (Auto) 4.0 Eos % (Auto) 0.0 Baso % (Auto) 0.2 Lymph # (Auto) 0.82 L [place] # (Auto) 0.5 Eos # (Auto) 0.0 Baso # (Auto) 0.0 Abs Immat Gran (auto) 0.09 H Absolute Neuts (auto) 11.2 H Absolute Nucleated RBC 0.000 Nucleated RBC % 0.0 Sodium 135 L Potassium 4.1 Chloride 100 Carbon Dioxide 27 Anion Gap 8 BUN 21 H Creatinine 1.07 Estim Creat Clear Calc 64 Estimated GFR > 60 Glucose 135 H Lactic Acid 0.6 L Calcium 8.7 Magnesium 1.7 Total Bilirubin 0.5 AST 53 ALT 85 H Alkaline Phosphatase 105 Total Protein 7.0 Albumin 3.2 L
[2024-08-15 13:50] VITALS: BP 133/72; PULSE 89; RESP 16; TEMP 36.7; O2SAT 96
[2024-08-15] MEDS: CALCIUM CARBONATE (TUMS) 500 MG (200 MG ELEMENTAL) PO (14:08)
--- NOTE | 2024-08-15 17:01 | P.PNIM_ITS ---
Progress Note: A&P Assessment and Plan (1) Altered mental state: Code(s): R41.82 - Altered mental status, unspecified Status: Acute Assessment and Plan: Likely from Meningitis CSF analysis showed elevated WBC and Protein likely bacterial Awaiting CSF cultures Continue Ceftriaxone, Ampicillin, Vanc and Dexamethasone (2) Fall from ground level: Code(s): W18.30XA - Fall on same level, unspecified, initial encounter Status: Acute Assessment and Plan: Patient sustained a ground level fall after taking muscle relaxers and trazodone, became dizzy falling on his left side and twisting his left ankle. 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 * Ice and elevate * Michele wrap for support * will need crutch training * PT and OT ordered * continue pain control (4) Left shoulder pain: Code(s): M25.512 - Pain in left shoulder Status: Acute Assessment and Plan: * left shoulder x-ray shown polyarticular osteoarthritis * continue pain control (5) Generalized weakness: Code(s): R53.1 - Weakness Status: Acute Assessment and Plan: * PT and OT ordered * Will need crutch training * care coordination following- working on placement (6) Hyperlipidemia: Code(s): E78.5 - Hyperlipidemia, unspecified Status: Acute Assessment and Plan: * continue aspirin and rosuvastatin (7) Hypertension: Code(s): I10 - Essential (primary) hypertension Status: Acute Assessment and Plan: * blood pressures ranging 114/58 to 149/90 * continue lisinopril, amlodipine, hydrochlorothiazide,and Avapro (8) Hypothyroidism: Code(s): E03.9 - Hypothyroidism, unspecified Status: Acute Assessment and Plan: * continue Synthroid * tsh rechecked- 9.890 * will increase to 87.5 mcg * will need recheck in Plan DVT prophylaxis on Sq lovenox Subjective Date/time seen: 08/15/24 17:01 Interval history: Patient comfortable at bedside Awaiting CSF fluid culture Review of Systems Review of Systems: ongoing confused All systems reviewed & are unremarkable except as noted in HPI and below Exam Narrative: General: alert and oriented Cardiac: Normal S1 and S2. RRR, No murmur, gallops or friction rubs, peripheral pulses intact. Respiratory: ls coarse, no other adventitious lung sounds, currently on room air Gastrointestinal: soft, non-distended, non-tender, normoactive bowel sounds. : voiding without difficulty. Extremities: moves all extremities well,mild edema left ankle Skin: clean, dry, intact. No wounds or lesions. Neuro: disoriented, cranial nerves intact, no neuro deficits. Psych: normal mood, normal affect, interactive Objective Data Vital Signs Vital Signs: Vital Signs - 24 hr 08/14/24 20:00 08/14/24 20:20 08/15/24 05:57 Temperature 97.4 F L 97.4 F L Pulse Rate 78 85 Respiratory Rate 17 18 Blood Pressure 145/82 H 144/84 H Pulse Oximetry 96 98 Oxygen Delivery Room Air 08/15/24 08:45 08/15/24 13:50 Temperature 98.1 F Pulse Rate 89 Respiratory Rate 16 16 Blood Pressure 133/72 Pulse Oximetry 96 96 Oxygen Delivery Room Air Intake/Output Intake/Output: Intake & Output 08/12/24 08/13/24 08/14/24 08/15/24 23:59 23:59 23:59 23:59 Intake Total 2690 2542.5 5113.7 2458.8 Output Total 930 941 8624 1000 Balance 2490 1842.5 3313.7 1458.8 Meds/Results Medications: Active Medications Generic Name Dose Route Start Last Admin Trade Name Rafa PRN Reason Stop Dose Admin Acetaminophen 650 mg 08/08/24 19:11 Acetaminophen 325 Mg Tablet PO Q4H PRN Mild Pain (1-3) or Fever Hydrocodone Bitart/Acetaminophen 1 tab 08/08/24 19:11 08/14/24 13:47 Hydrocodone/Acetaminophen (*Crx) 5-325 Mg Tablet PO 1 tab Q4H PRN Administration Pain Rated 4-6 Amlodipine Besylate 10 mg 08/09/24 09:00 08/15/24 08:45 Amlodipine Besylate 10 Mg Tablet PO 10 mg DAILY NERY Administration Aspirin 81 mg 08/09/24 09:00 08/15/24 08:45 Aspirin 81 Mg Chewable Tablet PO 81 mg DAILY NERY Administration Calcium Carbonate 200 mg 08/09/24 09:35 08/15/24 14:08 Calcium Carbonate (Tums) 500 Mg (200 Mg Elemental) PO 200 mg Q6H PRN Administration Indigestion Cyclobenzaprine HCl 10 mg 08/08/24 23:30 Cyclobenzaprine Hcl 10 Mg Tablet PO BID PRN muscle spasm Dexamethasone 10 mg 08/14/24 12:55 08/15/24 08:43 Dexamethasone 2 Mg Tablet PO 10 mg DAILY@0800 NERY Administration Enoxaparin Sodium 40 mg 08/15/24 09:00 08/15/24 08:51 Enoxaparin 40 Mg/0.4 Ml Syringe SUB-Q 40 mg DAILY NERY Administration Folic Acid 1 mg 08/10/24 09:00 08/15/24 08:45 Folic Acid 1 Mg Tablet PO 1 mg DAILY NERY Administration Guaifenesin 600 mg 08/11/24 13:23 Guaifenesin 12 Hr 600 Mg Tabcr PO Q12HR PRN coughing Hydrochlorothiazide 12.5 mg 08/09/24 09:00 08/15/24 08:45 Hydrochlorothiazide 12.5 Mg Capsule PO 12.5 mg QAM NERY Administration Sodium Chloride 1,000 mls @ 75 mls/hr 08/12/24 12:05 08/15/24 12:39 Normal Saline Iv IV CONT 0 mls/hr .[id number] NERY Infusion Ceftriaxone Sodium 2 gm in 100 mls @ 200 mls/hr 08/14/24 21:00 08/15/24 09:15 Rocephin 2 Gm/Ns 100 Ml IVPB Infused Q12HR NERY Infusion Ampicillin Sodium 2 gm in 100 mls @ 200 mls/hr 08/14/24 13:00 08/15/24 13:10 Ampicillin 2 Gm/Ns 100 Ml IVPB Infused Q4HR NERY Infusion Vancomycin HCl 1,500 mg in 500 mls @ 250 mls/hr 08/15/24 08:00 08/15/24 11:48 Vancomycin 1,500 Mg/Ns 500 Ml IVPB Infused Q18H NERY Infusion Irbesartan 150 mg 08/09/24 09:00 08/15/24 08:45 Irbesartan 150 Mg Tablet PO 150 mg DAILY NERY Administration Ketorolac Tromethamine 15 mg 08/11/24 09:50 Ketorolac 15 Mg/Ml Vial (*Bkc) IV PUSH Q6H PRN Pain Rated 4-6 Levothyroxine Sodium 12.5 mcg 08/12/24 06:30 08/15/24 05:31 Levothyroxine Sodium 12.5 Mcg Tablet PO 12.5 mcg DAILY@0630 NERY Administration Levothyroxine Sodium 75 mcg 08/12/24 06:30 08/15/24 05:31 Levothyroxine Sodium 75 Mcg Tablet PO 75 mcg DAILY@0630 NERY Administration Lisinopril 20 mg 08/09/24 09:00 08/15/24 08:45 Lisinopril 20 Mg Tablet PO 20 mg QAM NERY Administration Magnesium Oxide 400 mg 08/09/24 09:00 08/15/24 08:45 Magnesium Oxide 400 Mg Tablet PO 400 mg BID NERY Administration Morphine Sulfate 2 mg 08/08/24 19:11 Morphine Sulfate (*Crx) 2 Mg/Ml Inj IV PUSH Q2H PRN Pain Rated 7-10 Nicotine 1 patch 08/09/24 09:00 08/15/24 08:43 Nicotine (*Pbkc) 14 Mg Patch TRANSDERM 1 patch DAILY NERY Administration Ondansetron HCl 4 mg 08/08/24 19:11 Ondansetron Inj 4 Mg/2 Ml Vial IV PUSH Q4H PRN Nausea Quetiapine Fumarate 25 mg 08/12/24 21:00 08/14/24 20:45 Quetiapine Fumarate 25 Mg Tablet PO 25 mg HS NERY Administration Rosuvastatin Calcium 20 mg 08/11/24 09:00 08/15/24 08:48 Rosuvastatin 10 Mg Tablet PO 20 mg DAILY NERY Administration Radiology Results: ITS Impressions Cervical Spine CT 08/08/24 13:28 IMPRESSION: 1. No fracture 2. Severe cervical spondylosis. 3. Cervical dextroscoliosis and kyphosis. Head CT 08/08/24 13:29 Impression: No intracranial hemorrhage, mass, or acute infarct. Atrophy and chronic white matter changes, as above. Ankle X-Ray 08/08/24 13:42 IMPRESSION: 1. Heterotopic ossification distal to medial and lateral malleoli, likely chronic. No specific evidence of acute fracture. Shoulder X-Ray 08/08/24 13:45 IMPRESSION: 1. Polyarticular osteoarthritis. Head/Neck CTA 08/10/24 15:38 IMPRESSION: No acute intracranial process. No large vessel intracranial occlusion, high-grade intracranial stenosis, or aneurysm. No carotid or vertebral artery occlusion, dissection, or significant stenosis, within the constraints of mild motion artifact described above. Soft tissue stranding/edema along the left previous muscle and anterior to the left clavicle. Chest X-Ray 08/12/24 07:44 Impression: Clear lungs. Possible COPD. Brain MRI 08/12/24 08:58 IMPRESSION: 1. Brain atrophy with deep white matter ischemic changes. White matter disease is not excluded. 2. No acute infarct or hemorrhage. No masses or enhancing lesions seen. Modified Barium Swallow 08/12/24 11:44 IMPRESSION: Mild oropharyngeal dysphagia with flash laryngeal penetration without aspiration. Please correlate with speech pathologist findings and specific feeding recommendations. Lumbar Puncture 08/13/24 17:33 IMPRESSION: 1. Successful fluoro-guided lumbar puncture with mildly elevated opening pressure of 22 cm water. Labs Labs: Laboratory Results - last 24 hr 08/15/24 08/15/24 05:34 06:40 WBC 12.6 H RBC 3.75 L Hgb 11.2 L Hct 34.5 L MCV 92.0 MCH 29.9 MCHC 32.5 RDW 13.5 Plt Count 409 H MPV 10.6 H Immature Gran % (Auto) 0.7 H Neut % (Auto) 88.6 H Lymph % (Auto) 6.5 L [place] % (Auto) 4.0 Eos % (Auto) 0.0 Baso % (Auto) 0.2 Lymph # (Auto) 0.82 L [place] # (Auto) 0.5 Eos # (Auto) 0.0 Baso # (Auto) 0.0 Abs Immat Gran (auto) 0.09 H Absolute Neuts (auto) 11.2 H Absolute Nucleated RBC 0.000 Nucleated RBC % 0.0 Sodium 135 L Potassium 4.1 Chloride 100 Carbon Dioxide 27 Anion Gap 8 BUN 21 H Creatinine 1.07 Estim Creat Clear Calc 64 Estimated GFR > 60 Glucose 135 H Lactic Acid 0.6 L Calcium 8.7 Magnesium 1.7 Total Bilirubin 0.5 AST 53 ALT 85 H Alkaline Phosphatase 105 Total Protein 7.0 Albumin 3.2 L Quality VTE Prophylaxis VTE prophylaxis: mechanical ordered
[2024-08-15] MEDS: SODIUM CHLORIDE 0.9% IV 1,000 ML 75 ML IV CONT (18:23)
[2024-08-15 20:04] VITALS: BP 134/86; PULSE 73; RESP 17; TEMP 37.1; O2SAT 97
[2024-08-15] MEDS: QUEtiapine FUMARATE 25 MG TABLET PO (20:28)
[2024-08-16] MEDS: AMPICILLIN 2 GM/NS 100 ML 2 GM/100 ML BAG IVPB ×6 (00:56→19:59)
[2024-08-16] MEDS: VANCOMYCIN 1,500 MG/NS 500 ML 1,500 MG/500 ML BAG 250 MG IVPB ×2 (01:52→21:12)
[2024-08-16 04:55] VITALS: BP 137/76; PULSE 71; RESP 18; TEMP 36.6; O2SAT 98
[2024-08-16 05:53] LABS: Basophils Percent Auto 0.2 % (0.2-1.2); Hematocrit 35.2 % (42.0-52.0); Hemoglobin 11.3 g/dL (14.0-18.0); Immature Granulocyte Absolute 0.11 K/mm3 (0.00-0.031); Immature Granulocyte Percent A 0.7 % (0-0.5); Lymphocytes Percent Auto 11.1 % (18.3-44.2); Mean Corpuscular HGB Conc 32.1 g/dl (32-36); Mean Corpuscular Hemoglobin 29.6 pg (26-34); Mean Corpuscular Volume 92.1 fl (80-100); Mean Platelet Volume 10.3 fl (7.4-10.4); Monocytes Absolute Auto 0.9 K/mm3 (0.1-0.6); Monocytes Percent Auto 5.3 % (2.6-8.5); Neutrophils Absolute Auto 13.5 K/mm3 (1.3-6.7); Neutrophils Percent Auto 82.7 % (45.5-73.1); Platelet Count Result 467 k/mm3 (150-375); Red Blood Count 3.82 M/mm3 (4.6-6.20); Red Cell Distribution Width 13.6 % (11.5-14.5); White Blood Count 16.3 K/mm3 (4.5-10.0)
[2024-08-16 06:05] LABS: Alanine Aminotransferase 112 U/L (6-50); Albumin Level 3.1 g/dL (3.5-5.1); Alkaline Phosphatase 94 U/L (38-126); Anion Gap 6 mmol/L (4-12); Aspartate Amino Transferase 106 U/L (17-59); Bilirubin,Total 0.4 mg/dL (0.2-1.3); Blood Urea Nitrogen 20 mg/dL (9-20); Calcium 8.3 mg/dL (8.4-10.2); Carbon Dioxide 28 mmol/L (22-30); Chloride 102 mmol/L (98-107); Estimated CRCL calculation 73 ml/min; Estimated Glomerular Filt Rate > 60; Glucose 101 mg/dL (65-110); Magnesium 1.8 mg/dL (1.6-2.3); Potassium 3.6 mmol/L (3.4-5.0); Sodium 136 mmol/L (137-145)
[2024-08-16] MEDS: LEVOTHYROXINE SODIUM 75 MCG TABLET PO (06:52)
[2024-08-16] MEDS: LEVOTHYROXINE SODIUM 12.5 MCG TABLET PO (06:52)
[2024-08-16] MEDS: ENOXAPARIN 40 MG/0.4 ML SYRINGE SUB-Q (08:25)
[2024-08-16] MEDS: FOLIC ACID 1 MG TABLET PO (08:26)
[2024-08-16] MEDS: ROSUVASTATIN 10 MG TABLET 20 MG PO (08:26)
[2024-08-16] MEDS: cefTRIAXone 2 GM/NS 100 ML 2 GM/100 ML BAG IVPB ×2 (08:26→20:00)
[2024-08-16] MEDS: MAGNESIUM OXIDE 400 MG TABLET PO ×2 (08:26→17:20)
[2024-08-16] MEDS: amLODIPine BESYLATE 10 MG TABLET PO (08:26)
[2024-08-16] MEDS: hydroCHLOROthiazide 12.5 MG CAPSULE PO (08:26)
[2024-08-16] MEDS: ASPIRIN 81 MG CHEWABLE TABLET PO (08:26)
[2024-08-16] MEDS: lisinopriL 20 MG TABLET PO (08:26)
[2024-08-16] MEDS: IRBESARTAN 150 MG TABLET PO (08:26)
[2024-08-16] MEDS: dexAMETHasone 2 MG TABLET 10 MG PO ×3 (08:26→17:21)
[2024-08-16] MEDS: CALCIUM CARBONATE (TUMS) 500 MG (200 MG ELEMENTAL) PO (08:33)
--- NOTE | 2024-08-16 08:44 | PHA.ABX.ID ---
Pharmacy ID Consult Stewardship Interventions Pharmacy ID Note: Subjective Pharmacy was consulted by Dr. Beasley regarding infectious diseases for Joni Garrido. Joni Garrido is a 69 year old F with concerns regarding Bacterial Meningitis. Background The patient is currently receiving Ampicillin 2g q4h, vancomycin pharmacy to dose, ceftriaxone 2g q12h D3 overall. Notably, the patient is also on dexamethasone 10 mg qd. The patient's PMH includes spinal surgeries, HTN and among other mentioned in provider notes. Additionally, patient underwent LP, in which a culture was obtained, along with some serologies. These are pending. However fluid analysis did show elevated proteins and neutrophils and unsure of glucose CSF:Serum ratio given no similarly timed serum Glucose available. CSF culture is pending (August 13) Blood culture has finalized with no growth (August 10) Urine culture has finalized with no growth (August 13) Assessment/Recommendation/Discussion Spoke briefly with consulting provider. For community bacterial meningitis, the current coverage is appropriate with ampicillin, vancomycin, and ceftriaxone. The expected duration empirically is likely to be 14-21 days, ideally defined by the identified pathogen from the csf cultures. Dexamethasone dose adjusted to q6h and a 4d end date placed. Will continue to follow. Thank you for the interesting consult. Anthony Toscano, PharmD Infectious Disease/Antimicrobial Stewardship Pharmacist 08/16/24; 0844 WBC 16.3 K/mm3 (4.5-10.0) H 08/16/24 05:22 Creatinine 0.93 mg/dL (0.7-1.3) 08/16/24 05:22 Estim Creat Clear Calc 73 ml/min 08/16/24 05:22
--- NOTE | 2024-08-16 09:58 | PCNWS ---
Weekly nutritional screen. Patient is tolerating current Minced and moist level 5, heart healthy diet with adequate intake 50-100%. No weight loss reported. No nutritional recommendations at this time.
[2024-08-16] MEDS: NICOTINE (*PBKC) 14 MG PATCH 1 PATCH TRANSDERM (10:40)
--- NOTE | 2024-08-16 12:55 | P.PNIM_ITS ---
Progress Note: A&P Assessment and Plan (1) Altered mental state: Code(s): R41.82 - Altered mental status, unspecified Status: Acute Assessment and Plan: Likely from Meningitis CSF analysis showed elevated WBC and Protein likely bacterial Awaiting CSF cultures Continue Ceftriaxone, Ampicillin, Vanc and Dexamethasone (2) Fall from ground level: Code(s): W18.30XA - Fall on same level, unspecified, initial encounter Status: Acute Assessment and Plan: Patient sustained a ground level fall after taking muscle relaxers and trazodone, became dizzy falling on his left side and twisting his left ankle. 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 * Ice and elevate * Michele wrap for support * will need crutch training * PT and OT ordered * continue pain control (4) Left shoulder pain: Code(s): M25.512 - Pain in left shoulder Status: Acute Assessment and Plan: * left shoulder x-ray shown polyarticular osteoarthritis * continue pain control (5) Generalized weakness: Code(s): R53.1 - Weakness Status: Acute Assessment and Plan: * PT and OT ordered * Will need crutch training * care coordination following- working on placement (6) Hyperlipidemia: Code(s): E78.5 - Hyperlipidemia, unspecified Status: Acute Assessment and Plan: * continue aspirin and rosuvastatin (7) Hypertension: Code(s): I10 - Essential (primary) hypertension Status: Acute Assessment and Plan: * blood pressures ranging 114/58 to 149/90 * continue lisinopril, amlodipine, hydrochlorothiazide,and Avapro (8) Hypothyroidism: Code(s): E03.9 - Hypothyroidism, unspecified Status: Acute Assessment and Plan: * continue Synthroid * tsh rechecked- 9.890 * will increase to 87.5 mcg * will need recheck in Plan DVT prophylaxis on Sq lovenox Subjective Date/time seen: 08/16/24 12:55 Interval history: Patient comfortable at bedside Awaiting CSF fluid culture Review of Systems Review of Systems: ongoing confused All systems reviewed & are unremarkable except as noted in HPI and below Exam Narrative: General: alert and oriented Cardiac: Normal S1 and S2. RRR, No murmur, gallops or friction rubs, peripheral pulses intact. Respiratory: ls coarse, no other adventitious lung sounds, currently on room air Gastrointestinal: soft, non-distended, non-tender, normoactive bowel sounds. : voiding without difficulty. Extremities: moves all extremities well,mild edema left ankle Skin: clean, dry, intact. No wounds or lesions. Neuro: disoriented, cranial nerves intact, no neuro deficits. Psych: normal mood, normal affect, interactive Objective Data Vital Signs Vital Signs: Vital Signs - 24 hr 08/15/24 13:50 08/15/24 20:00 08/15/24 20:04 Temperature 98.1 F 98.8 F Pulse Rate 89 73 Respiratory Rate 16 17 Blood Pressure 133/72 134/86 Pulse Oximetry 96 97 Oxygen Delivery Room Air 08/16/24 04:55 08/16/24 08:31 Temperature 97.9 F Pulse Rate 71 Respiratory Rate 18 Blood Pressure 137/76 Pulse Oximetry 98 Oxygen Delivery Room Air Intake/Output Intake/Output: Intake & Output 08/13/24 08/14/24 08/15/24 08/16/24 23:59 23:59 23:59 23:59 Intake Total 2542.5 5113.7 3280.0 740 Output Total 700 1800 2500 1000 Balance 1842.5 3313.7 780.0 -260 Meds/Results Medications: Active Medications Generic Name Dose Route Start Last Admin Trade Name El[place]q PRN Reason Stop Dose Admin Acetaminophen 650 mg 08/08/24 19:11 Acetaminophen 325 Mg Tablet PO Q4H PRN Mild Pain (1-3) or Fever Hydrocodone Bitart/Acetaminophen 1 tab 08/08/24 19:11 08/14/24 13:47 Hydrocodone/Acetaminophen (*Crx) 5-325 Mg Tablet PO 1 tab Q4H PRN Administration Pain Rated 4-6 Amlodipine Besylate 10 mg 08/09/24 09:00 08/16/24 08:26 Amlodipine Besylate 10 Mg Tablet PO 10 mg DAILY NERY Administration Aspirin 81 mg 08/09/24 09:00 08/16/24 08:26 Aspirin 81 Mg Chewable Tablet PO 81 mg DAILY NERY Administration Calcium Carbonate 200 mg 08/09/24 09:35 08/16/24 08:33 Calcium Carbonate (Tums) 500 Mg (200 Mg Elemental) PO 200 mg Q6H PRN Administration Indigestion Cyclobenzaprine HCl 10 mg 08/08/24 23:30 Cyclobenzaprine Hcl 10 Mg Tablet PO BID PRN muscle spasm Dexamethasone 10 mg 08/16/24 13:00 Dexamethasone 2 Mg Tablet PO 08/17/24 23:59 Q6HR NERY Enoxaparin Sodium 40 mg 08/15/24 09:00 08/16/24 08:25 Enoxaparin 40 Mg/0.4 Ml Syringe SUB-Q 40 mg DAILY NERY Administration Folic Acid 1 mg 08/10/24 09:00 08/16/24 08:26 Folic Acid 1 Mg Tablet PO 1 mg DAILY NERY Administration Guaifenesin 600 mg 08/11/24 13:23 Guaifenesin 12 Hr 600 Mg Tabcr PO Q12HR PRN coughing Hydrochlorothiazide 12.5 mg 08/09/24 09:00 08/16/24 08:26 Hydrochlorothiazide 12.5 Mg Capsule PO 12.5 mg QAM NERY Administration Ceftriaxone Sodium 2 gm in 100 mls @ 200 mls/hr 08/14/24 21:00 08/16/24 10:30 Rocephin 2 Gm/Ns 100 Ml IVPB 200 mls/hr Q12HR NERY Infusion Ampicillin Sodium 2 gm in 100 mls @ 200 mls/hr 08/14/24 13:00 08/16/24 11:40 Ampicillin 2 Gm/Ns 100 Ml IVPB 200 mls/hr Q4HR NERY Administration Vancomycin HCl 1,500 mg in 500 mls @ 250 mls/hr 08/15/24 08:00 08/16/24 01:52 Vancomycin 1,500 Mg/Ns 500 Ml IVPB 250 mls/hr Q18H NREY Administration Irbesartan 150 mg 08/09/24 09:00 08/16/24 08:26 Irbesartan 150 Mg Tablet PO 150 mg DAILY NERY Administration Levothyroxine Sodium 12.5 mcg 08/12/24 06:30 08/16/24 06:52 Levothyroxine Sodium 12.5 Mcg Tablet PO 12.5 mcg DAILY@0630 NERY Administration Levothyroxine Sodium 75 mcg 08/12/24 06:30 08/16/24 06:52 Levothyroxine Sodium 75 Mcg Tablet PO 75 mcg DAILY@0630 NERY Administration Lisinopril 20 mg 08/09/24 09:00 08/16/24 08:26 Lisinopril 20 Mg Tablet PO 20 mg QAM NERY Administration Magnesium Oxide 400 mg 08/09/24 09:00 08/16/24 08:26 Magnesium Oxide 400 Mg Tablet PO 400 mg BID NERY Administration Morphine Sulfate 2 mg 08/08/24 19:11 Morphine Sulfate (*Crx) 2 Mg/Ml Inj IV PUSH Q2H PRN Pain Rated 7-10 Nicotine 1 patch 08/09/24 09:00 08/16/24 10:40 Nicotine (*Pbkc) 14 Mg Patch TRANSDERM 1 patch DAILY NERY Administration Ondansetron HCl 4 mg 08/08/24 19:11 Ondansetron Inj 4 Mg/2 Ml Vial IV PUSH Q4H PRN Nausea Quetiapine Fumarate 25 mg 08/12/24 21:00 08/15/24 20:28 Quetiapine Fumarate 25 Mg Tablet PO 25 mg HS NERY Administration Rosuvastatin Calcium 20 mg 08/11/24 09:00 08/16/24 08:26 Rosuvastatin 10 Mg Tablet PO 20 mg DAILY NERY Administration Radiology Results: ITS Impressions Cervical Spine CT 08/08/24 13:28 IMPRESSION: 1. No fracture 2. Severe cervical spondylosis. 3. Cervical dextroscoliosis and kyphosis. Head CT 08/08/24 13:29 Impression: No intracranial hemorrhage, mass, or acute infarct. Atrophy and chronic white matter changes, as above. Ankle X-Ray 08/08/24 13:42 IMPRESSION: 1. Heterotopic ossification distal to medial and lateral malleoli, likely chronic. No specific evidence of acute fracture. Shoulder X-Ray 08/08/24 13:45 IMPRESSION: 1. Polyarticular osteoarthritis. Head/Neck CTA 08/10/24 15:38 IMPRESSION: No acute intracranial process. No large vessel intracranial occlusion, high-grade intracranial stenosis, or aneurysm. No carotid or vertebral artery occlusion, dissection, or significant stenosis, within the constraints of mild motion artifact described above. Soft tissue stranding/edema along the left previous muscle and anterior to the left clavicle. Chest X-Ray 08/12/24 07:44 Impression: Clear lungs. Possible COPD. Brain MRI 08/12/24 08:58 IMPRESSION: 1. Brain atrophy with deep white matter ischemic changes. White matter disease is not excluded. 2. No acute infarct or hemorrhage. No masses or enhancing lesions seen. Modified Barium Swallow 08/12/24 11:44 IMPRESSION: Mild oropharyngeal dysphagia with flash laryngeal penetration without aspiration. Please correlate with speech pathologist findings and specific feeding recommendations. Lumbar Puncture 08/13/24 17:33 IMPRESSION: 1. Successful fluoro-guided lumbar puncture with mildly elevated opening pressure of 22 cm water. Labs Labs: Laboratory Results - last 24 hr 08/16/24 05:22 WBC 16.3 H RBC 3.82 L Hgb 11.3 L Hct 35.2 L MCV 92.1 MCH 29.6 MCHC 32.1 RDW 13.6 Plt Count 467 H MPV 10.3 Immature Gran % (Auto) 0.7 H Neut % (Auto) 82.7 H Lymph % (Auto) 11.1 L [place] % (Auto) 5.3 Eos % (Auto) 0.0 Baso % (Auto) 0.2 Lymph # (Auto) 1.80 [place] # (Auto) 0.9 H Eos # (Auto) 0.0 Baso # (Auto) 0.0 Abs Immat Gran (auto) 0.11 H Absolute Neuts (auto) 13.5 H Absolute Nucleated RBC 0.000 Nucleated RBC % 0.0 Sodium 136 L Potassium 3.6 Chloride 102 Carbon Dioxide 28 Anion Gap 6 BUN 20 Creatinine 0.93 Estim Creat Clear Calc 73 Estimated GFR > 60 Glucose 101 Calcium 8.3 L Magnesium 1.8 Total Bilirubin 0.4 AST 106 H ALT 112 H Alkaline Phosphatase 94 Total Protein 7.0 Albumin 3.1 L Quality VTE Prophylaxis VTE prophylaxis: mechanical ordered
[2024-08-16 14:00] VITALS: BP 128/73; PULSE 74; RESP 18; TEMP 36.6; O2SAT 97
[2024-08-16 19:18] LABS: Vancomycin Trough 11.6 ug/mL (10.0-20.0)
[2024-08-16] MEDS: HYDROcodone/acetaminophen (*CRX) 5-325 MG TABLET 1 TAB PO (19:57)
[2024-08-16] MEDS: QUEtiapine FUMARATE 25 MG TABLET PO (19:57)
[2024-08-16 20:00] VITALS: PULSE 74; RESP 18; O2SAT 97
[2024-08-16 22:00] VITALS: BP 109/47; PULSE 71; RESP 18; TEMP 36.5; O2SAT 97
[2024-08-17] MEDS: dexAMETHasone 2 MG TABLET 10 MG PO ×4 (00:10→18:07)
[2024-08-17] MEDS: AMPICILLIN 2 GM/NS 100 ML 2 GM/100 ML BAG IVPB ×6 (01:10→20:44)
[2024-08-17] MEDS: LEVOTHYROXINE SODIUM 75 MCG TABLET PO (05:50)
[2024-08-17] MEDS: LEVOTHYROXINE SODIUM 12.5 MCG TABLET PO (05:50)
[2024-08-17 06:00] VITALS: BP 149/78; PULSE 74; RESP 20; TEMP 36.1; O2SAT 100
[2024-08-17 06:08] LABS: Basophils Percent Auto 0.1 % (0.2-1.2); Hematocrit 35.1 % (42.0-52.0); Hemoglobin 11.4 g/dL (14.0-18.0); Immature Granulocyte Percent A 0.8 % (0-0.5); Lymphocytes Absolute Auto 0.75 K/mm3 (0.9-3.2); Lymphocytes Percent Auto 6.1 % (18.3-44.2); Mean Corpuscular HGB Conc 32.5 g/dl (32-36); Mean Corpuscular Hemoglobin 29.8 pg (26-34); Mean Corpuscular Volume 91.6 fl (80-100); Mean Platelet Volume 10.2 fl (7.4-10.4); Monocytes Absolute Auto 0.5 K/mm3 (0.1-0.6); Monocytes Percent Auto 3.9 % (2.6-8.5); Neutrophils Absolute Auto 10.9 K/mm3 (1.3-6.7); Neutrophils Percent Auto 89.1 % (45.5-73.1); Platelet Count Result 505 k/mm3 (150-375); Red Blood Count 3.83 M/mm3 (4.6-6.20); Red Cell Distribution Width 13.9 % (11.5-14.5); White Blood Count 12.2 K/mm3 (4.5-10.0)
[2024-08-17 06:17] LABS: Alanine Aminotransferase 126 U/L (6-50); Albumin Level 3.2 g/dL (3.5-5.1); Alkaline Phosphatase 85 U/L (38-126); Anion Gap 9 mmol/L (4-12); Aspartate Amino Transferase 83 U/L (17-59); Bilirubin,Total 0.5 mg/dL (0.2-1.3); Blood Urea Nitrogen 25 mg/dL (9-20); Calcium 8.3 mg/dL (8.4-10.2); Carbon Dioxide 26 mmol/L (22-30); Chloride 99 mmol/L (98-107); Estimated CRCL calculation 64 ml/min; Estimated Glomerular Filt Rate > 60; Glucose 122 mg/dL (65-110); Potassium 4.2 mmol/L (3.4-5.0); Sodium 134 mmol/L (137-145)
[2024-08-17] MEDS: CALCIUM CARBONATE (TUMS) 500 MG (200 MG ELEMENTAL) PO ×2 (06:33→18:07)
[2024-08-17] MEDS: LIDOCAINE 1% PF INJ 5 ML VIAL INFILTRATE (09:10)
[2024-08-17] MEDS: cefTRIAXone 2 GM/NS 100 ML 2 GM/100 ML BAG IVPB ×2 (10:07→20:45)
[2024-08-17] MEDS: IRBESARTAN 150 MG TABLET PO (10:10)
[2024-08-17] MEDS: ASPIRIN 81 MG CHEWABLE TABLET PO (10:10)
[2024-08-17] MEDS: amLODIPine BESYLATE 10 MG TABLET PO (10:10)
[2024-08-17] MEDS: lisinopriL 20 MG TABLET PO (10:10)
[2024-08-17] MEDS: MAGNESIUM OXIDE 400 MG TABLET PO ×2 (10:10→18:07)
[2024-08-17] MEDS: NICOTINE (*PBKC) 14 MG PATCH 1 PATCH TRANSDERM (10:11)
[2024-08-17] MEDS: ENOXAPARIN 40 MG/0.4 ML SYRINGE SUB-Q (10:11)
[2024-08-17] MEDS: FOLIC ACID 1 MG TABLET PO (10:11)
[2024-08-17] MEDS: hydroCHLOROthiazide 12.5 MG CAPSULE PO (10:11)
[2024-08-17] MEDS: ROSUVASTATIN 10 MG TABLET 20 MG PO (10:11)
[2024-08-17] MEDS: VANCOMYCIN 1,500 MG/NS 500 ML 1,500 MG/500 ML BAG 250 MG IVPB ×2 (10:37→20:44)
--- NOTE | 2024-08-17 11:14 | P.PNIM_ITS ---
Progress Note: A&P Assessment and Plan (1) Altered mental state: Code(s): R41.82 - Altered mental status, unspecified Status: Acute Assessment and Plan: Likely from Meningitis CSF analysis showed elevated WBC and Protein likely bacterial Awaiting CSF cultures Continue Ceftriaxone, Ampicillin, Vanc and Dexamethasone (2) Fall from ground level: Code(s): W18.30XA - Fall on same level, unspecified, initial encounter Status: Acute Assessment and Plan: Patient sustained a ground level fall after taking muscle relaxers and trazodone, became dizzy falling on his left side and twisting his left ankle. 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 * Ice and elevate * Michele wrap for support * will need crutch training * PT and OT ordered * continue pain control (4) Left shoulder pain: Code(s): M25.512 - Pain in left shoulder Status: Acute Assessment and Plan: * left shoulder x-ray shown polyarticular osteoarthritis * continue pain control (5) Generalized weakness: Code(s): R53.1 - Weakness Status: Acute Assessment and Plan: * PT and OT ordered * Will need crutch training * care coordination following- working on placement (6) Hyperlipidemia: Code(s): E78.5 - Hyperlipidemia, unspecified Status: Acute Assessment and Plan: * continue aspirin and rosuvastatin (7) Hypertension: Code(s): I10 - Essential (primary) hypertension Status: Acute Assessment and Plan: * blood pressures ranging 114/58 to 149/90 * continue lisinopril, amlodipine, hydrochlorothiazide,and Avapro (8) Hypothyroidism: Code(s): E03.9 - Hypothyroidism, unspecified Status: Acute Assessment and Plan: * continue Synthroid * tsh rechecked- 9.890 * will increase to 87.5 mcg * will need recheck in Plan DVT prophylaxis on Sq lovenox Awaiting CSF culture Subjective Date/time seen: 08/17/24 11:14 Interval history: Patient comfortable at bedside Awaiting CSF fluid culture Review of Systems Review of Systems: ongoing confused All systems reviewed & are unremarkable except as noted in HPI and below Exam Narrative: General: alert and oriented Cardiac: Normal S1 and S2. RRR, No murmur, gallops or friction rubs, peripheral pulses intact. Respiratory: ls coarse, no other adventitious lung sounds, currently on room air Gastrointestinal: soft, non-distended, non-tender, normoactive bowel sounds. : voiding without difficulty. Extremities: moves all extremities well,mild edema left ankle Skin: clean, dry, intact. No wounds or lesions. Neuro: disoriented, cranial nerves intact, no neuro deficits. Psych: normal mood, normal affect, interactive Objective Data Vital Signs Vital Signs: Vital Signs - 24 hr 08/16/24 14:00 08/16/24 20:00 08/16/24 22:00 Temperature 97.8 F 97.7 F Pulse Rate 74 74 71 Respiratory Rate 18 18 18 Blood Pressure 128/73 109/47 L Pulse Oximetry 97 97 97 Oxygen Delivery Room Air 08/17/24 06:00 Temperature 97.0 F L Pulse Rate 74 Respiratory Rate 20 Blood Pressure 149/78 H Pulse Oximetry 100 Oxygen Delivery Intake/Output Intake/Output: Intake & Output 08/14/24 08/15/24 08/16/24 08/17/24 23:59 23:59 23:59 23:59 Intake Total 5113.7 3280.0 4060 1050 Output Total 1800 2500 3725 1000 Balance 3313.7 780.0 335 50 Meds/Results Medications: Active Medications Generic Name Dose Route Start Last Admin Trade Name Freq PRN Reason Stop Dose Admin Acetaminophen 650 mg 08/08/24 19:11 Acetaminophen 325 Mg Tablet PO Q4H PRN Mild Pain (1-3) or Fever Hydrocodone Bitart/Acetaminophen 1 tab 08/08/24 19:11 08/16/24 19:57 Hydrocodone/Acetaminophen (*Crx) 5-325 Mg Tablet PO 1 tab Q4H PRN Administration Pain Rated 4-6 Amlodipine Besylate 10 mg 08/09/24 09:00 08/17/24 10:10 Amlodipine Besylate 10 Mg Tablet PO 10 mg DAILY NERY Administration Aspirin 81 mg 08/09/24 09:00 08/17/24 10:10 Aspirin 81 Mg Chewable Tablet PO 81 mg DAILY NERY Administration Calcium Carbonate 200 mg 08/09/24 09:35 08/17/24 06:33 Calcium Carbonate (Tums) 500 Mg (200 Mg Elemental) PO 200 mg Q6H PRN Administration Indigestion Cyclobenzaprine HCl 10 mg 08/08/24 23:30 Cyclobenzaprine Hcl 10 Mg Tablet PO BID PRN muscle spasm Dexamethasone 10 mg 08/16/24 13:00 08/17/24 05:50 Dexamethasone 2 Mg Tablet PO 08/17/24 23:59 10 mg Q6HR NERY Administration Enoxaparin Sodium 40 mg 08/15/24 09:00 08/17/24 10:11 Enoxaparin 40 Mg/0.4 Ml Syringe SUB-Q 40 mg DAILY NERY Administration Folic Acid 1 mg 08/10/24 09:00 08/17/24 10:11 Folic Acid 1 Mg Tablet PO 1 mg DAILY NERY Administration Guaifenesin 600 mg 08/11/24 13:23 Guaifenesin 12 Hr 600 Mg Tabcr PO Q12HR PRN coughing Hydrochlorothiazide 12.5 mg 08/09/24 09:00 08/17/24 10:11 Hydrochlorothiazide 12.5 Mg Capsule PO 12.5 mg QAM NERY Administration Ceftriaxone Sodium 2 gm in 100 mls @ 200 mls/hr 08/14/24 21:00 08/17/24 10:37 Rocephin 2 Gm/Ns 100 Ml IVPB Infused Q12HR NERY Infusion Ampicillin Sodium 2 gm in 100 mls @ 200 mls/hr 08/14/24 13:00 08/17/24 10:29 Ampicillin 2 Gm/Ns 100 Ml IVPB Infused Q4HR NERY Infusion Vancomycin HCl 1,500 mg in 500 mls @ 250 mls/hr 08/16/24 21:00 08/17/24 10:37 Vancomycin 1,500 Mg/Ns 500 Ml IVPB 250 mls/hr Q12H NERY Administration Irbesartan 150 mg 08/09/24 09:00 08/17/24 10:10 Irbesartan 150 Mg Tablet PO 150 mg DAILY NERY Administration Levothyroxine Sodium 12.5 mcg 08/12/24 06:30 08/17/24 05:50 Levothyroxine Sodium 12.5 Mcg Tablet PO 12.5 mcg DAILY@0630 NERY Administration Levothyroxine Sodium 75 mcg 08/12/24 06:30 08/17/24 05:50 Levothyroxine Sodium 75 Mcg Tablet PO 75 mcg DAILY@0630 NERY Administration Lisinopril 20 mg 08/09/24 09:00 08/17/24 10:10 Lisinopril 20 Mg Tablet PO 20 mg QAM NERY Administration Magnesium Oxide 400 mg 08/09/24 09:00 08/17/24 10:10 Magnesium Oxide 400 Mg Tablet PO 400 mg BID NERY Administration Morphine Sulfate 2 mg 08/08/24 19:11 Morphine Sulfate (*Crx) 2 Mg/Ml Inj IV PUSH Q2H PRN Pain Rated 7-10 Nicotine 1 patch 08/09/24 09:00 08/17/24 10:11 Nicotine (*Pbkc) 14 Mg Patch TRANSDERM 1 patch DAILY NERY Administration Ondansetron HCl 4 mg 08/08/24 19:11 Ondansetron Inj 4 Mg/2 Ml Vial IV PUSH Q4H PRN Nausea Quetiapine Fumarate 25 mg 08/12/24 21:00 08/16/24 19:57 Quetiapine Fumarate 25 Mg Tablet PO 25 mg HS NERY Administration Rosuvastatin Calcium 20 mg 08/11/24 09:00 08/17/24 10:11 Rosuvastatin 10 Mg Tablet PO 20 mg DAILY NERY Administration Sodium Chloride 10 ml 08/17/24 14:00 Central Line Flush IV PUSH Q8HR NERY Sodium Chloride 10 ml 08/17/24 10:03 Central Line Flush IV PUSH PRN PRN with TPN bag changes Sodium Chloride 20 ml 08/17/24 10:03 Central Line Flush IV PUSH PRN PRN after blood draws Radiology Results: ITS Impressions Cervical Spine CT 08/08/24 13:28 IMPRESSION: 1. No fracture 2. Severe cervical spondylosis. 3. Cervical dextroscoliosis and kyphosis. Head CT 08/08/24 13:29 Impression: No intracranial hemorrhage, mass, or acute infarct. Atrophy and chronic white matter changes, as above. Ankle X-Ray 08/08/24 13:42 IMPRESSION: 1. Heterotopic ossification distal to medial and lateral malleoli, likely chronic. No specific evidence of acute fracture. Shoulder X-Ray 08/08/24 13:45 IMPRESSION: 1. Polyarticular osteoarthritis. Head/Neck CTA 08/10/24 15:38 IMPRESSION: No acute intracranial process. No large vessel intracranial occlusion, high-grade intracranial stenosis, or aneurysm. No carotid or vertebral artery occlusion, dissection, or significant stenosis, within the constraints of mild motion artifact described above. Soft tissue stranding/edema along the left previous muscle and anterior to the left clavicle. Brain MRI 08/12/24 08:58 IMPRESSION: 1. Brain atrophy with deep white matter ischemic changes. White matter disease is not excluded. 2. No acute infarct or hemorrhage. No masses or enhancing lesions seen. Modified Barium Swallow 08/12/24 11:44 IMPRESSION: Mild oropharyngeal dysphagia with flash laryngeal penetration without aspiration. Please correlate with speech pathologist findings and specific feeding recommendations. Lumbar Puncture 08/13/24 17:33 IMPRESSION: 1. Successful fluoro-guided lumbar puncture with mildly elevated opening pressure of 22 cm water. Chest X-Ray 08/17/24 09:45 Impression: 1: Mild interstitial edema. 2: PICC line tip in the SVC.. Labs Labs: Laboratory Results - last 24 hr 08/16/24 08/17/24 18:59 05:54 WBC 12.2 H RBC 3.83 L Hgb 11.4 L Hct 35.1 L MCV 91.6 MCH 29.8 MCHC 32.5 RDW 13.9 Plt Count 505 H MPV 10.2 Immature Gran % (Auto) 0.8 H Neut % (Auto) 89.1 H Lymph % (Auto) 6.1 L [place] % (Auto) 3.9 Eos % (Auto) 0.0 Baso % (Auto) 0.1 L Lymph # (Auto) 0.75 L [place] # (Auto) 0.5 Eos # (Auto) 0.0 Baso # (Auto) 0.0 Abs Immat Gran (auto) 0.10 H Absolute Neuts (auto) 10.9 H Absolute Nucleated RBC 0.000 Nucleated RBC % 0.0 Sodium 134 L Potassium 4.2 Chloride 99 Carbon Dioxide 26 Anion Gap 9 BUN 25 H Creatinine 1.07 Estim Creat Clear Calc 64 Estimated GFR > 60 Glucose 122 H Calcium 8.3 L Total Bilirubin 0.5 AST 83 H ALT 126 H Alkaline Phosphatase 85 Total Protein 7.0 Albumin 3.2 L Vancomycin Trough 11.6 Quality VTE Prophylaxis VTE prophylaxis: mechanical ordered
[2024-08-17 11:23] LABS: Lyme AB IgG, Immunoblot NO BANDS DETECTED; Lyme AB IgM, Immunoblot NO BANDS DETECTED
[2024-08-17] MEDS: CENTRAL LINE FLUSH 10 ML IV PUSH ×2 (13:16→20:51)
[2024-08-17] MEDS: guaiFENesin 12 HR 600 MG TABCR PO (13:25)
[2024-08-17 14:00] VITALS: BP 153/91; PULSE 77; RESP 18; TEMP 36.9; O2SAT 98
[2024-08-17] MEDS: QUEtiapine FUMARATE 25 MG TABLET PO (20:45)
[2024-08-17] MEDS: CYCLOBENZAPRINE HCL 10 MG TABLET PO (20:51)
[2024-08-17 22:00] VITALS: BP 135/84; PULSE 69; RESP 20; TEMP 36.7; O2SAT 98
[2024-08-18] MEDS: AMPICILLIN 2 GM/NS 100 ML 2 GM/100 ML BAG IVPB ×6 (00:34→20:10)
[2024-08-18 05:11] LABS: Basophils Percent Auto 0.1 % (0.2-1.2); Hematocrit 35.3 % (42.0-52.0); Hemoglobin 11.7 g/dL (14.0-18.0); Immature Granulocyte Absolute 0.16 K/mm3 (0.00-0.031); Lymphocytes Absolute Auto 0.96 K/mm3 (0.9-3.2); Lymphocytes Percent Auto 5.8 % (18.3-44.2); Mean Corpuscular HGB Conc 33.1 g/dl (32-36); Mean Corpuscular Hemoglobin 30.3 pg (26-34); Mean Corpuscular Volume 91.5 fl (80-100); Mean Platelet Volume 9.9 fl (7.4-10.4); Monocytes Absolute Auto 0.6 K/mm3 (0.1-0.6); Monocytes Percent Auto 3.4 % (2.6-8.5); Neutrophils Absolute Auto 14.8 K/mm3 (1.3-6.7); Neutrophils Percent Auto 89.7 % (45.5-73.1); Platelet Count Result 568 k/mm3 (150-375); Red Blood Count 3.86 M/mm3 (4.6-6.20); Red Cell Distribution Width 13.9 % (11.5-14.5); White Blood Count 16.5 K/mm3 (4.5-10.0)
[2024-08-18 05:30] LABS: Alanine Aminotransferase 131 U/L (6-50); Albumin Level 3.3 g/dL (3.5-5.1); Alkaline Phosphatase 81 U/L (38-126); Anion Gap 10 mmol/L (4-12); Aspartate Amino Transferase 83 U/L (17-59); Bilirubin,Total 0.5 mg/dL (0.2-1.3); Blood Urea Nitrogen 29 mg/dL (9-20); Calcium 8.3 mg/dL (8.4-10.2); Carbon Dioxide 26 mmol/L (22-30); Chloride 99 mmol/L (98-107); Estimated CRCL calculation 63 ml/min; Estimated Glomerular Filt Rate > 60; Glucose 120 mg/dL (65-110); Magnesium 2.1 mg/dL (1.6-2.3); Potassium 4.3 mmol/L (3.4-5.0); Sodium 135 mmol/L (137-145)
[2024-08-18 06:00] VITALS: BP 148/72; PULSE 69; RESP 20; TEMP 36.2; O2SAT 98
[2024-08-18] MEDS: LEVOTHYROXINE SODIUM 12.5 MCG TABLET PO (06:34)
[2024-08-18] MEDS: LEVOTHYROXINE SODIUM 75 MCG TABLET PO (06:34)
[2024-08-18] MEDS: CENTRAL LINE FLUSH 10 ML IV PUSH ×2 (06:35→13:53)
[2024-08-18 08:40] LABS: Vancomycin Trough 17.2 ug/mL (10.0-20.0)
[2024-08-18] MEDS: ASPIRIN 81 MG CHEWABLE TABLET PO (09:24)
[2024-08-18] MEDS: VANCOMYCIN 1,500 MG/NS 500 ML 1,500 MG/500 ML BAG 250 MG IVPB ×2 (09:24→20:11)
[2024-08-18] MEDS: lisinopriL 20 MG TABLET PO (09:24)
[2024-08-18] MEDS: hydroCHLOROthiazide 12.5 MG CAPSULE PO (09:24)
[2024-08-18] MEDS: amLODIPine BESYLATE 10 MG TABLET PO (09:24)
[2024-08-18] MEDS: MAGNESIUM OXIDE 400 MG TABLET PO ×2 (09:24→17:11)
[2024-08-18] MEDS: ROSUVASTATIN 10 MG TABLET 20 MG PO (09:24)
[2024-08-18] MEDS: FOLIC ACID 1 MG TABLET PO (09:24)
[2024-08-18] MEDS: ENOXAPARIN 40 MG/0.4 ML SYRINGE SUB-Q (09:24)
[2024-08-18] MEDS: IRBESARTAN 150 MG TABLET PO (09:24)
[2024-08-18] MEDS: NICOTINE (*PBKC) 14 MG PATCH 1 PATCH TRANSDERM (09:24)
[2024-08-18] MEDS: cefTRIAXone 2 GM/NS 100 ML 2 GM/100 ML BAG IVPB ×2 (09:25→20:10)
[2024-08-18] MEDS: CALCIUM CARBONATE (TUMS) 500 MG (200 MG ELEMENTAL) PO ×2 (09:34→17:51)
--- NOTE | 2024-08-18 09:39 | P.PNIM_ITS ---
Progress Note: A&P Assessment and Plan (1) Altered mental state: Code(s): R41.82 - Altered mental status, unspecified Status: Acute Assessment and Plan: Likely from Meningitis CSF analysis showed elevated WBC and Protein likely bacterial Awaiting CSF cultures Continue Ceftriaxone, Ampicillin, Vanc and Dexamethasone (2) Fall from ground level: Code(s): W18.30XA - Fall on same level, unspecified, initial encounter Status: Acute Assessment and Plan: Patient sustained a ground level fall after taking muscle relaxers and trazodone, became dizzy falling on his left side and twisting his left ankle. 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 * Ice and elevate * Michele wrap for support * will need crutch training * PT and OT ordered * continue pain control (4) Left shoulder pain: Code(s): M25.512 - Pain in left shoulder Status: Acute Assessment and Plan: * left shoulder x-ray shown polyarticular osteoarthritis * continue pain control (5) Generalized weakness: Code(s): R53.1 - Weakness Status: Acute Assessment and Plan: * PT and OT ordered * Will need crutch training * care coordination following- working on placement (6) Hyperlipidemia: Code(s): E78.5 - Hyperlipidemia, unspecified Status: Acute Assessment and Plan: * continue aspirin and rosuvastatin (7) Hypertension: Code(s): I10 - Essential (primary) hypertension Status: Acute Assessment and Plan: * blood pressures ranging 114/58 to 149/90 * continue lisinopril, amlodipine, hydrochlorothiazide,and Avapro (8) Hypothyroidism: Code(s): E03.9 - Hypothyroidism, unspecified Status: Acute Assessment and Plan: * continue Synthroid * tsh rechecked- 9.890 * will increase to 87.5 mcg * will need recheck in Plan DVT prophylaxis on Sq lovenox Awaiting CSF culture Subjective Date/time seen: 08/18/24 09:39 Interval history: Patient was seen during the morning rounds today. Feeling ok No new overnight compliants. Patient comfortable at bedside No sob or chest pain Review of Systems Review of Systems: ongoing confused All systems reviewed & are unremarkable except as noted in HPI and below Exam Narrative: General: alert and oriented Cardiac: Normal S1 and S2. RRR, No murmur, gallops or friction rubs, peripheral pulses intact. Respiratory: ls coarse, no other adventitious lung sounds, currently on room air Gastrointestinal: soft, non-distended, non-tender, normoactive bowel sounds. : voiding without difficulty. Extremities: moves all extremities well,mild edema left ankle Skin: clean, dry, intact. No wounds or lesions. Neuro: Alert and awake. cranial nerves intact, no neuro deficits. Psych: normal mood, normal affect, interactive Objective Data Vital Signs Vital Signs: Vital Signs - 24 hr 08/17/24 10:10 08/17/24 14:00 08/17/24 20:00 Temperature 36.9 C Pulse Rate 77 Respiratory Rate 18 Blood Pressure 153/91 H Pulse Oximetry 98 Oxygen Delivery Room Air Room Air 08/17/24 22:00 08/18/24 06:00 Temperature 36.7 C 36.2 C L Pulse Rate 69 69 Respiratory Rate 20 20 Blood Pressure 135/84 148/72 H Pulse Oximetry 98 98 Oxygen Delivery Intake/Output Intake/Output: Intake & Output 08/15/24 08/16/24 08/17/24 08/18/24 23:59 23:59 23:59 23:59 Intake Total 3280.0 4060 5110 1040 Output Total 2500 3725 1500 Balance 780.0 335 3610 1040 Meds/Results Medications: Active Medications Generic Name Dose Route Start Last Admin Trade Name Freq PRN Reason Stop Dose Admin Acetaminophen 650 mg 08/08/24 19:11 Acetaminophen 325 Mg Tablet PO Q4H PRN Mild Pain (1-3) or Fever Hydrocodone Bitart/Acetaminophen 1 tab 08/08/24 19:11 08/16/24 19:57 Hydrocodone/Acetaminophen (*Crx) 5-325 Mg Tablet PO 1 tab Q4H PRN Administration Pain Rated 4-6 Amlodipine Besylate 10 mg 08/09/24 09:00 08/18/24 09:24 Amlodipine Besylate 10 Mg Tablet PO 10 mg DAILY NERY Administration Aspirin 81 mg 08/09/24 09:00 08/18/24 09:24 Aspirin 81 Mg Chewable Tablet PO 81 mg DAILY NERY Administration Calcium Carbonate 200 mg 08/09/24 09:35 08/18/24 09:34 Calcium Carbonate (Tums) 500 Mg (200 Mg Elemental) PO 200 mg Q6H PRN Administration Indigestion Cyclobenzaprine HCl 10 mg 08/08/24 23:30 08/17/24 20:51 Cyclobenzaprine Hcl 10 Mg Tablet PO 10 mg BID PRN Administration muscle spasm Enoxaparin Sodium 40 mg 08/15/24 09:00 08/18/24 09:24 Enoxaparin 40 Mg/0.4 Ml Syringe SUB-Q 40 mg DAILY NERY Administration Folic Acid 1 mg 08/10/24 09:00 08/18/24 09:24 Folic Acid 1 Mg Tablet PO 1 mg DAILY NERY Administration Guaifenesin 600 mg 08/11/24 13:23 08/17/24 13:25 Guaifenesin 12 Hr 600 Mg Tabcr PO 600 mg Q12HR PRN Administration coughing Hydrochlorothiazide 12.5 mg 08/09/24 09:00 08/18/24 09:24 Hydrochlorothiazide 12.5 Mg Capsule PO 12.5 mg QAM NERY Administration Ceftriaxone Sodium 2 gm in 100 mls @ 200 mls/hr 08/14/24 21:00 08/18/24 09:25 Rocephin 2 Gm/Ns 100 Ml IVPB 200 mls/hr Q12HR NERY Administration Ampicillin Sodium 2 gm in 100 mls @ 200 mls/hr 08/14/24 13:00 08/18/24 09:35 Ampicillin 2 Gm/Ns 100 Ml IVPB 200 mls/hr Q4HR NERY Administration Vancomycin HCl 1,500 mg in 500 mls @ 250 mls/hr 08/16/24 21:00 08/18/24 09:24 Vancomycin 1,500 Mg/Ns 500 Ml IVPB 250 mls/hr Q12H NERY Administration Irbesartan 150 mg 08/09/24 09:00 08/18/24 09:24 Irbesartan 150 Mg Tablet PO 150 mg DAILY NERY Administration Levothyroxine Sodium 12.5 mcg 08/12/24 06:30 08/18/24 06:34 Levothyroxine Sodium 12.5 Mcg Tablet PO 12.5 mcg DAILY@0630 NERY Administration Levothyroxine Sodium 75 mcg 08/12/24 06:30 08/18/24 06:34 Levothyroxine Sodium 75 Mcg Tablet PO 75 mcg DAILY@0630 NERY Administration Lisinopril 20 mg 08/09/24 09:00 08/18/24 09:24 Lisinopril 20 Mg Tablet PO 20 mg QAM NERY Administration Magnesium Oxide 400 mg 08/09/24 09:00 08/18/24 09:24 Magnesium Oxide 400 Mg Tablet PO 400 mg BID NERY Administration Miscellaneous Information 1 each 08/18/24 00:01 Morphine And [place] Needs To Be Renewed Or It Will Automatically Discontinue. XX 09/17/24 00:00 CLARIFY [facility] Morphine Sulfate 2 mg 08/08/24 19:11 Morphine Sulfate (*Crx) 2 Mg/Ml Inj IV PUSH Q2H PRN Pain Rated 7-10 Nicotine 1 patch 08/09/24 09:00 08/18/24 09:24 Nicotine (*Pbkc) 14 Mg Patch TRANSDERM 1 patch DAILY NERY Administration Ondansetron HCl 4 mg 08/08/24 19:11 Ondansetron Inj 4 Mg/2 Ml Vial IV PUSH Q4H PRN Nausea Quetiapine Fumarate 25 mg 08/12/24 21:00 08/17/24 20:45 Quetiapine Fumarate 25 Mg Tablet PO 25 mg HS [facility] Administration Rosuvastatin Calcium 20 mg 08/11/24 09:00 08/18/24 09:24 Rosuvastatin 10 Mg Tablet PO 20 mg DAILY NERY Administration Sodium Chloride 10 ml 08/17/24 14:00 08/18/24 06:35 Central Line Flush IV PUSH 10 ml Q8HR NERY Administration Sodium Chloride 10 ml 08/17/24 10:03 Central Line Flush IV PUSH PRN PRN with TPN bag changes Sodium Chloride 20 ml 08/17/24 10:03 Central Line Flush IV PUSH PRN PRN after blood draws Radiology Results: ITS Impressions Cervical Spine CT 08/08/24 13:28 IMPRESSION: 1. No fracture 2. Severe cervical spondylosis. 3. Cervical dextroscoliosis and kyphosis. Head CT 08/08/24 13:29 Impression: No intracranial hemorrhage, mass, or acute infarct. Atrophy and chronic white matter changes, as above. Ankle X-Ray 08/08/24 13:42 IMPRESSION: 1. Heterotopic ossification distal to medial and lateral malleoli, likely chronic. No specific evidence of acute fracture. Shoulder X-Ray 08/08/24 13:45 IMPRESSION: 1. Polyarticular osteoarthritis. Head/Neck CTA 08/10/24 15:38 IMPRESSION: No acute intracranial process. No large vessel intracranial occlusion, high-grade intracranial stenosis, or aneurysm. No carotid or vertebral artery occlusion, dissection, or significant stenosis, within the constraints of mild motion artifact described above. Soft tissue stranding/edema along the left previous muscle and anterior to the left clavicle. Brain MRI 08/12/24 08:58 IMPRESSION: 1. Brain atrophy with deep white matter ischemic changes. White matter disease is not excluded. 2. No acute infarct or hemorrhage. No masses or enhancing lesions seen. Modified Barium Swallow 08/12/24 11:44 IMPRESSION: Mild oropharyngeal dysphagia with flash laryngeal penetration without aspiration. Please correlate with speech pathologist findings and specific feeding recommendations. Lumbar Puncture 08/13/24 17:33 IMPRESSION: 1. Successful fluoro-guided lumbar puncture with mildly elevated opening pressure of 22 cm water. Chest X-Ray 08/17/24 09:45 Impression: 1: Mild interstitial edema. 2: PICC line tip in the SVC.. Labs Labs: Laboratory Results - last 24 hr 08/13/24 08/18/24 08/18/24 16:33 05:06 07:52 WBC 16.5 H RBC 3.86 L Hgb 11.7 L Hct 35.3 L MCV 91.5 MCH 30.3 MCHC 33.1 RDW 13.9 Plt Count 568 H MPV 9.9 Immature Gran % (Auto) 1.0 H Neut % (Auto) 89.7 H Lymph % (Auto) 5.8 L [place] % (Auto) 3.4 Eos % (Auto) 0.0 Baso % (Auto) 0.1 L Lymph # (Auto) 0.96 [place] # (Auto) 0.6 Eos # (Auto) 0.0 Baso # (Auto) 0.0 Abs Immat Gran (auto) 0.16 H Absolute Neuts (auto) 14.8 H Absolute Nucleated RBC 0.000 Nucleated RBC % 0.0 Sodium 135 L Potassium 4.3 Chloride 99 Carbon Dioxide 26 Anion Gap 10 BUN 29 H Creatinine 1.09 Estim Creat Clear Calc 63 Estimated GFR > 60 Glucose 120 H Calcium 8.3 L Magnesium 2.1 Total Bilirubin 0.5 AST 83 H ALT 131 H Alkaline Phosphatase 81 Total Protein 7.0 Albumin 3.3 L CSF Lyme IgG (Immblot) No bands detected CSF Lyme IgM (Immblot) No bands detected Vancomycin Trough 17.2 Quality VTE Prophylaxis VTE prophylaxis: mechanical ordered
[2024-08-18 14:00] VITALS: BP 149/77; PULSE 69; RESP 18; TEMP 36.9; O2SAT 99
[2024-08-18] MEDS: QUEtiapine FUMARATE 25 MG TABLET PO (20:11)
[2024-08-18] MEDS: CYCLOBENZAPRINE HCL 10 MG TABLET PO (20:14)
[2024-08-18 21:56] VITALS: BP 143/86; PULSE 72; RESP 18; TEMP 36.2; O2SAT 96
[2024-08-19] MEDS: CENTRAL LINE FLUSH 10 ML IV PUSH ×2 (01:10→12:34)
[2024-08-19] MEDS: AMPICILLIN 2 GM/NS 100 ML 2 GM/100 ML BAG IVPB ×6 (01:10→20:36)
[2024-08-19] MEDS: LEVOTHYROXINE SODIUM 75 MCG TABLET PO (05:46)
[2024-08-19] MEDS: LEVOTHYROXINE SODIUM 12.5 MCG TABLET PO (05:46)
[2024-08-19 06:00] VITALS: BP 125/66; PULSE 69; RESP 20; TEMP 36.1; O2SAT 100
[2024-08-19 06:00] LABS: Basophils Percent Auto 0.2 % (0.2-1.2); Eosinophils Percent Auto 0.2 % (0-4.4); Hematocrit 35.6 % (42.0-52.0); Hemoglobin 11.6 g/dL (14.0-18.0); Immature Granulocyte Absolute 0.12 K/mm3 (0.00-0.031); Immature Granulocyte Percent A 0.9 % (0-0.5); Lymphocytes Absolute Auto 2.74 K/mm3 (0.9-3.2); Mean Corpuscular HGB Conc 32.6 g/dl (32-36); Mean Corpuscular Hemoglobin 30.4 pg (26-34); Mean Corpuscular Volume 93.2 fl (80-100); Mean Platelet Volume 9.8 fl (7.4-10.4); Monocytes Absolute Auto 1.1 K/mm3 (0.1-0.6); Monocytes Percent Auto 8.7 % (2.6-8.5); Platelet Count Result 511 k/mm3 (150-375); Red Blood Count 3.82 M/mm3 (4.6-6.20)
[2024-08-19 06:12] LABS: Alanine Aminotransferase 122 U/L (6-50); Albumin Level 3.2 g/dL (3.5-5.1); Alkaline Phosphatase 84 U/L (38-126); Anion Gap 5 mmol/L (4-12); Aspartate Amino Transferase 67 U/L (17-59); Bilirubin,Total 0.5 mg/dL (0.2-1.3); Blood Urea Nitrogen 22 mg/dL (9-20); Calcium 8.3 mg/dL (8.4-10.2); Carbon Dioxide 30 mmol/L (22-30); Chloride 99 mmol/L (98-107); Estimated CRCL calculation 63 ml/min; Estimated Glomerular Filt Rate > 60; Glucose 84 mg/dL (65-110); Potassium 3.6 mmol/L (3.4-5.0); Sodium 134 mmol/L (137-145)
[2024-08-19] MEDS: cefTRIAXone 2 GM/NS 100 ML 2 GM/100 ML BAG IVPB ×2 (08:34→20:37)
[2024-08-19] MEDS: VANCOMYCIN 1,500 MG/NS 500 ML 1,500 MG/500 ML BAG 250 MG IVPB ×2 (08:35→20:36)
[2024-08-19] MEDS: amLODIPine BESYLATE 10 MG TABLET PO (08:42)
[2024-08-19] MEDS: hydroCHLOROthiazide 12.5 MG CAPSULE PO (08:42)
[2024-08-19] MEDS: ASPIRIN 81 MG CHEWABLE TABLET PO (08:42)
[2024-08-19] MEDS: ROSUVASTATIN 10 MG TABLET 20 MG PO (08:43)
[2024-08-19] MEDS: MAGNESIUM OXIDE 400 MG TABLET PO ×2 (08:43→18:03)
[2024-08-19] MEDS: FOLIC ACID 1 MG TABLET PO (08:43)
[2024-08-19] MEDS: lisinopriL 20 MG TABLET PO (08:43)
[2024-08-19] MEDS: NICOTINE (*PBKC) 14 MG PATCH 1 PATCH TRANSDERM (08:43)
[2024-08-19] MEDS: ENOXAPARIN 40 MG/0.4 ML SYRINGE SUB-Q (08:43)
[2024-08-19] MEDS: IRBESARTAN 150 MG TABLET PO (08:43)
[2024-08-19] MEDS: CALCIUM CARBONATE (TUMS) 500 MG (200 MG ELEMENTAL) PO ×2 (08:53→18:03)
[2024-08-19 13:17] LABS: Syphilis IgG/IgM Antibody Negative (Negative)
[2024-08-19 13:28] LABS: HIV 1/2 Ab P24 Ag Result Negative (Negative)
[2024-08-19 13:52] LABS: Hepatitis B Surface Antigen Negative (Negative)
[2024-08-19 13:57] LABS: HAV RESULT Negative (Negative); Hepatitis B Core IgM Result Negative (Negative)
[2024-08-19 14:09] LABS: Hepatitis C Virus Antibody Negative (Negative)
[2024-08-19 15:15] VITALS: BP 156/80; PULSE 74; RESP 16; TEMP 36.5; O2SAT 99
--- NOTE | 2024-08-19 15:32 | P.PNIM_ITS ---
Progress Note: A&P Assessment and Plan (1) Altered mental state: Code(s): R41.82 - Altered mental status, unspecified Status: Acute Assessment and Plan: Likely from Meningitis CSF analysis showed elevated WBC and Protein likely bacterial Negative CSF cultures Continue Ceftriaxone, Ampicillin, Vanc and Dexamethasone Initiated transferred to [facility] (2) Fall from ground level: Code(s): W18.30XA - Fall on same level, unspecified, initial encounter Status: Acute Assessment and Plan: Patient sustained a ground level fall after taking muscle relaxers and trazodone, became dizzy falling on his left side and twisting his left ankle. * Crutch training * PT and OT ordered (3) Left ankle sprain: Code(s): S93.402A - Sprain of unspecified ligament of left ankle, initial encounter Status: Acute Assessment and Plan: * left ankle x-ray showing heterotrophic ossification distal to medial and la teral malleoli likely chronic, no specific evidence of acute fracture however there was noted ankle soft tissue swelling. * Ice and elevate * Michele wrap for support * will need crutch training * PT and OT ordered * continue pain control (4) Left shoulder pain: Code(s): M25.512 - Pain in left shoulder Status: Acute Assessment and Plan: * left shoulder x-ray shown polyarticular osteoarthritis * continue pain control (5) Generalized weakness: Code(s): R53.1 - Weakness Status: Acute Assessment and Plan: * PT and OT ordered * Will need crutch training * care coordination following- working on placement (6) Hyperlipidemia: Code(s): E78.5 - Hyperlipidemia, unspecified Status: Acute Assessment and Plan: * continue aspirin and rosuvastatin (7) Hypertension: Code(s): I10 - Essential (primary) hypertension Status: Acute Assessment and Plan: * blood pressures ranging 114/58 to 149/90 * continue lisinopril, amlodipine, hydrochlorothiazide,and Avapro (8) Hypothyroidism: Code(s): E03.9 - Hypothyroidism, unspecified Status: Acute Assessment and Plan: * continue Synthroid * tsh rechecked- 9.890 * will increase to 87.5 mcg * will need recheck in Plan DVT prophylaxis on Sq lovenox Awaiting CSF culture Subjective Date/time seen: 08/19/24 15:32 Interval history: Patient had spinal tap which shows bacterial infection. CSF culture shows no organisms. Patient is currently on cefepime, vancomycin and ampicillin. Before the spinal tap patient was on ceftriaxone. Syphilis, hepatitis and HIV negative. Called [facility] and awaiting call back Review of Systems Review of Systems: ongoing confused All systems reviewed & are unremarkable except as noted in HPI and below Exam Narrative: General: alert and oriented Cardiac: Normal S1 and S2. RRR, No murmur, gallops or friction rubs, peripheral pulses intact. Respiratory: ls coarse, no other adventitious lung sounds, currently on room air Gastrointestinal: soft, non-distended, non-tender, normoactive bowel sounds. : voiding without difficulty. Extremities: moves all extremities well,mild edema left ankle Skin: clean, dry, intact. No wounds or lesions. Neuro: Alert and awake. cranial nerves intact, no neuro deficits. Psych: normal mood, normal affect, interactive Objective Data Vital Signs Vital Signs: Vital Signs - 24 hr 08/18/24 20:00 08/18/24 21:56 08/19/24 06:00 Temperature 97.1 F L 97.0 F L Pulse Rate 72 69 Respiratory Rate 18 20 Blood Pressure 143/86 H 125/66 Pulse Oximetry 96 100 Oxygen Delivery Room Air 08/19/24 08:56 Temperature Pulse Rate Respiratory Rate Blood Pressure Pulse Oximetry Oxygen Delivery Room Air Intake/Output Intake/Output: Intake & Output 08/16/24 08/17/24 08/18/24 08/19/24 23:59 23:59 23:59 23:59 Intake Total 4060 5110 3460 2090 Output Total 3725 7760 816 7063 Balance 335 3610 3160 990 Meds/Results Medications: Active Medications Generic Name Dose Route Start Last Admin Trade Name Freq PRN Reason Stop Dose Admin Acetaminophen 650 mg 08/08/24 19:11 Acetaminophen 325 Mg Tablet PO Q4H PRN Mild Pain (1-3) or Fever Hydrocodone Bitart/Acetaminophen 1 tab 08/08/24 19:11 08/16/24 19:57 Hydrocodone/Acetaminophen (*Crx) 5-325 Mg Tablet PO 1 tab Q4H PRN Administration Pain Rated 4-6 Amlodipine Besylate 10 mg 08/09/24 09:00 08/19/24 08:42 Amlodipine Besylate 10 Mg Tablet PO 10 mg DAILY NERY Administration Aspirin 81 mg 08/09/24 09:00 08/19/24 08:42 Aspirin 81 Mg Chewable Tablet PO 81 mg DAILY NERY Administration Calcium Carbonate 200 mg 08/09/24 09:35 08/19/24 08:53 Calcium Carbonate (Tums) 500 Mg (200 Mg Elemental) PO 200 mg Q6H PRN Administration Indigestion Cyclobenzaprine HCl 10 mg 08/08/24 23:30 08/18/24 20:14 Cyclobenzaprine Hcl 10 Mg Tablet PO 10 mg BID PRN Administration muscle spasm Enoxaparin Sodium 40 mg 08/15/24 09:00 08/19/24 08:43 Enoxaparin 40 Mg/0.4 Ml Syringe SUB-Q 40 mg DAILY NERY Administration Folic Acid 1 mg 08/10/24 09:00 08/19/24 08:43 Folic Acid 1 Mg Tablet PO 1 mg DAILY NERY Administration Guaifenesin 600 mg 08/11/24 13:23 08/17/24 13:25 Guaifenesin 12 Hr 600 Mg Tabcr PO 600 mg Q12HR PRN Administration coughing Hydrochlorothiazide 12.5 mg 08/09/24 09:00 08/19/24 08:42 Hydrochlorothiazide 12.5 Mg Capsule PO 12.5 mg QAM NERY Administration Ceftriaxone Sodium 2 gm in 100 mls @ 200 mls/hr 08/14/24 21:00 08/19/24 09:04 Rocephin 2 Gm/Ns 100 Ml IVPB Infused Q12HR NERY Infusion Ampicillin Sodium 2 gm in 100 mls @ 200 mls/hr 08/14/24 13:00 08/19/24 13:04 Ampicillin 2 Gm/Ns 100 Ml IVPB Infused Q4HR NERY Infusion Vancomycin HCl 1,500 mg in 500 mls @ 250 mls/hr 08/16/24 21:00 08/19/24 10:35 Vancomycin 1,500 Mg/Ns 500 Ml IVPB Infused Q12H NERY Infusion Irbesartan 150 mg 08/09/24 09:00 08/19/24 08:43 Irbesartan 150 Mg Tablet PO 150 mg DAILY NERY Administration Levothyroxine Sodium 12.5 mcg 08/12/24 06:30 08/19/24 05:46 Levothyroxine Sodium 12.5 Mcg Tablet PO 12.5 mcg DAILY@0630 NERY Administration Levothyroxine Sodium 75 mcg 08/12/24 06:30 08/19/24 05:46 Levothyroxine Sodium 75 Mcg Tablet PO 75 mcg DAILY@0630 NERY Administration Lisinopril 20 mg 08/09/24 09:00 08/19/24 08:43 Lisinopril 20 Mg Tablet PO 20 mg QAM NERY Administration Magnesium Oxide 400 mg 08/09/24 09:00 08/19/24 08:43 Magnesium Oxide 400 Mg Tablet PO 400 mg BID NERY Administration Morphine Sulfate 2 mg 08/08/24 19:11 Morphine Sulfate (*Crx) 2 Mg/Ml Inj IV PUSH Q2H PRN Pain Rated 7-10 Nicotine 1 patch 08/09/24 09:00 08/19/24 08:43 Nicotine (*Pbkc) 14 Mg Patch TRANSDERM 1 patch DAILY NERY Administration Ondansetron HCl 4 mg 08/08/24 19:11 Ondansetron Inj 4 Mg/2 Ml Vial IV PUSH Q4H PRN Nausea Quetiapine Fumarate 25 mg 08/12/24 21:00 08/18/24 20:11 Quetiapine Fumarate 25 Mg Tablet PO 25 mg HS NERY Administration Rosuvastatin Calcium 20 mg 08/11/24 09:00 08/19/24 08:43 Rosuvastatin 10 Mg Tablet PO 20 mg DAILY NERY Administration Sodium Chloride 10 ml 08/17/24 14:00 08/19/24 12:34 Central Line Flush IV PUSH 10 ml Q8HR NERY Administration Sodium Chloride 10 ml 08/17/24 10:03 Central Line Flush IV PUSH PRN PRN with TPN bag changes Sodium Chloride 20 ml 08/17/24 10:03 Central Line Flush IV PUSH PRN PRN after blood draws Radiology Results: ITS Impressions Cervical Spine CT 08/08/24 13:28 IMPRESSION: 1. No fracture 2. Severe cervical spondylosis. 3. Cervical dextroscoliosis and kyphosis. Head CT 08/08/24 13:29 Impression: No intracranial hemorrhage, mass, or acute infarct. Atrophy and chronic white matter changes, as above. Ankle X-Ray 08/08/24 13:42 IMPRESSION: 1. Heterotopic ossification distal to medial and lateral malleoli, likely chronic. No specific evidence of acute fracture. Shoulder X-Ray 08/08/24 13:45 IMPRESSION: 1. Polyarticular osteoarthritis. Head/Neck CTA 08/10/24 15:38 IMPRESSION: No acute intracranial process. No large vessel intracranial occlusion, high-grade intracranial stenosis, or aneurysm. No carotid or vertebral artery occlusion, dissection, or significant stenosis, within the constraints of mild motion artifact described above. Soft tissue stranding/edema along the left previous muscle and anterior to the left clavicle. Brain MRI 08/12/24 08:58 IMPRESSION: 1. Brain atrophy with deep white matter ischemic changes. White matter disease is not excluded. 2. No acute infarct or hemorrhage. No masses or enhancing lesions seen. Modified Barium Swallow 08/12/24 11:44 IMPRESSION: Mild oropharyngeal dysphagia with flash laryngeal penetration without aspiration. Please correlate with speech pathologist findings and specific feeding recommendations. Lumbar Puncture 08/13/24 17:33 IMPRESSION: 1. Successful fluoro-guided lumbar puncture with mildly elevated opening pressure of 22 cm water. Chest X-Ray 08/17/24 09:45 Impression: 1: Mild interstitial edema. 2: PICC line tip in the SVC.. Labs Labs: Laboratory Results - last 24 hr 08/18/24 08/19/24 07:52 05:52 WBC 13.0 H RBC 3.82 L Hgb 11.6 L Hct 35.6 L MCV 93.2 MCH 30.4 MCHC 32.6 RDW 14.0 Plt Count 511 H MPV 9.8 Immature Gran % (Auto) 0.9 H Neut % (Auto) 69.0 Lymph % (Auto) 21.0 [place] % (Auto) 8.7 H Eos % (Auto) 0.2 Baso % (Auto) 0.2 Lymph # (Auto) 2.74 [place] # (Auto) 1.1 H Eos # (Auto) 0.0 Baso # (Auto) 0.0 Abs Immat Gran (auto) 0.12 H Absolute Neuts (auto) 9.0 H Absolute Nucleated RBC 0.000 Nucleated RBC % 0.0 Sodium 134 L Potassium 3.6 Chloride 99 Carbon Dioxide 30 Anion Gap 5 BUN 22 H Creatinine 1.09 Estim Creat Clear Calc 63 Estimated GFR > 60 Glucose 84 Calcium 8.3 L Total Bilirubin 0.5 AST 67 H ALT 122 H Alkaline Phosphatase 84 Total Protein 6.0 L Albumin 3.2 L Syphilis IgG/IgM Ab Negative Hepatitis A IgM Ab Negative Hep Bs Antigen Negative Hep B Core IgM Ab Negative Hepatitis C Ab Screen Negative HIV 1&2 Ab/P24 Ag 4thGn Negative Quality VTE Prophylaxis VTE prophylaxis: mechanical ordered Hospitalist MIPS Advance Care Plan I have confirmed that the patient's Advanced Care Plan is present, code status i s documented, or surrogate decision maker is listed in patient medical record.: Yes Medication Reconciliation I have utilized all available resources to obtain, update and review the patients current medications (includes all prescriptions, OTC, herbals, cannabis, and nutritional supplements).: Yes
--- NOTE | 2024-08-19 15:34 | P.PNINF_ITS ---
Pharmacy ID Consult Stewardship Interventions Pharmacy ID Note: Spoke briefly with current hospitalist provider today (consulting service). Patient is receiving treatment for bacterial meningitis and is currently on Day 6 of treatment with Ampicillin/Vancomycin/Ceftriaxone. CSF culture has resulted with no identifiable growth despite fluid analysis. Patient was on Ceftriaxone prior to CSF culture so that could have caused this no growth result, but notably, of the common community acquired bacterial meningitis pathogens, the patient was not receiving any listeria coverage at the time of obtaining the culture. 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 For discharge, after discussion with provider, likely to discharge on Ceftriaxone 2g q12h and Vancomycin to be dosed based on therapeutic drug monitoring (current dose 1500 mg q12h) for a total duration of [address] end date at 08/27/24. Will sign off consult at this time, please reconsult, or reach out, if any new information or questions come to light. WBC 13.0 K/mm3 (4.5-10.0) H 08/19/24 05:52 Creatinine 1.09 mg/dL (0.7-1.3) 08/19/24 05:52 Estim Creat Clear Calc 63 ml/min 08/19/24 05:52 Initial consult note copied below for convenience Pharmacy ID Consult Stewardship Interventions Pharmacy ID Note: Subjective Pharmacy was consulted by Dr. Beasley regarding infectious diseases for Joni Garrido. Joni Garrido is a 69 year old F with concerns regarding Bacterial Meningitis. Background The patient is currently receiving Ampicillin 2g q4h, vancomycin pharmacy to dose, ceftriaxone 2g q12h D3 overall. Notably, the patient is also on dexamethasone 10 mg qd. The patient's PMH includes spinal surgeries, HTN and among other mentioned in provider notes. Additionally, patient underwent LP, in which a culture was obtained, along with some serologies. These are pending. However fluid analysis did show elevated proteins and neutrophils and unsure of glucose CSF:Serum ratio given no similarly timed serum Glucose available. CSF culture is pending (August 13) Blood culture has finalized with no growth (August 10) Urine culture has finalized with no growth (August 13) Assessment/Recommendation/Discussion Spoke briefly with consulting provider. For community bacterial meningitis, the current coverage is appropriate with ampicillin, vancomycin, and ceftriaxone. The expected duration empirically is likely to be 14-21 days, ideally defined by the identified pathogen from the csf cultures. Dexamethasone dose adjusted to q6h and a 4d end date placed. Will continue to follow. Thank you for the interesting consult. Anthony Toscano PharmD Infectious Disease/Antimicrobial Stewardship Pharmacist 08/16/24; 0844 WBC 16.3 K/mm3 (4.5-10.0) H 08/16/24 05:22 Creatinine 0.93 mg/dL (0.7-1.3) 08/16/24 05:22 Estim Creat Clear Calc 73 ml/min 08/16/24 05:22 Please be advised this is a medical document. It is intended for [id number] communication. It is written in medical language and may contain unfamiliar abbreviations or verbiage. Medical documents are intended to carry relevant information, facts as evident, and the clinical opinion of the practitioner at the time of the encounter. This report may have been done utilizing a voice recognition system. Attempts have been made to correct errors. However, there may be uncorrected grammatical, spelling, and recognition errors present. The file time of this note does not necessarily represent the time the patient was seen. Report Initialized date/time: Anthony Toscano PharmD 08/16/24901 Electronically signed by: Anthony Toscano PharmD 08/16/24901
[2024-08-19] MEDS: QUEtiapine FUMARATE 25 MG TABLET PO (20:37)
[2024-08-19] MEDS: CYCLOBENZAPRINE HCL 10 MG TABLET PO (20:37)
[2024-08-19 23:30] VITALS: BP 137/75; PULSE 70; RESP 20; TEMP 36.5; O2SAT 100
[2024-08-20] MEDS: AMPICILLIN 2 GM/NS 100 ML 2 GM/100 ML BAG IVPB ×4 (00:39→13:22)
[2024-08-20] MEDS: CENTRAL LINE FLUSH 10 ML IV PUSH ×2 (00:40→09:41)
[2024-08-20] MEDS: LEVOTHYROXINE SODIUM 12.5 MCG TABLET PO (05:20)
[2024-08-20] MEDS: LEVOTHYROXINE SODIUM 75 MCG TABLET PO (05:20)
[2024-08-20 06:00] VITALS: BP 136/70; PULSE 70; RESP 20; TEMP 36.1; O2SAT 99
[2024-08-20] MEDS: ENOXAPARIN 40 MG/0.4 ML SYRINGE SUB-Q (09:40)
[2024-08-20] MEDS: VANCOMYCIN 1,500 MG/NS 500 ML 1,500 MG/500 ML BAG 250 MG IVPB (09:40)
[2024-08-20] MEDS: MAGNESIUM OXIDE 400 MG TABLET PO (09:41)
[2024-08-20] MEDS: lisinopriL 20 MG TABLET PO (09:41)
[2024-08-20] MEDS: IRBESARTAN 150 MG TABLET PO (09:41)
[2024-08-20] MEDS: amLODIPine BESYLATE 10 MG TABLET PO (09:41)
[2024-08-20] MEDS: hydroCHLOROthiazide 12.5 MG CAPSULE PO (09:41)
[2024-08-20] MEDS: FOLIC ACID 1 MG TABLET PO (09:42)
[2024-08-20] MEDS: NICOTINE (*PBKC) 14 MG PATCH 1 PATCH TRANSDERM (09:42)
[2024-08-20] MEDS: ASPIRIN 81 MG CHEWABLE TABLET PO (09:42)
[2024-08-20] MEDS: ROSUVASTATIN 10 MG TABLET 20 MG PO (09:42)
[2024-08-20] MEDS: HYDROcodone/acetaminophen (*CRX) 5-325 MG TABLET 1 TAB PO (09:47)
[2024-08-20] MEDS: CALCIUM CARBONATE (TUMS) 500 MG (200 MG ELEMENTAL) PO (09:50)
--- NOTE | 2024-08-20 09:51 | PC.NURSE ---
While scanning medications in patient asked RN for a katt. Patient's at bedside asked, Did the nexium I gave you last night not help? RN overheard her ask patient this and RN educated and patient that we cannot give outside medications as the nursing staff does not know what has and has not be given due to it not being scanned in the computer therefore we don't want patient getting double dosed. Everyone verbalizes understanding.
[2024-08-20] MEDS: cefTRIAXone 2 GM/NS 100 ML 2 GM/100 ML BAG IVPB (10:00)
[2024-08-20 14:00] VITALS: BP 117/57; PULSE 74; RESP 16; TEMP 35.8; O2SAT 99
--- NOTE | 2024-08-20 17:42 | P.DS_ITS ---
DS: Admitting Diagnosis Discharge Date 08/20/24 Admitting Diagnosis Left ankle pain DS: Discharge Diagnosis Discharge Diagnosis (1) Altered mental state: Code(s): R41.82 - Altered mental status, unspecified Status: Acute Assessment and Plan: Likely from Meningitis CSF analysis showed elevated WBC and Protein likely bacterial Negative CSF cultures Continue Ceftriaxone, Vanc and Dexamethasone Initiated transferred to [facility] but recommended [facility] (2) Fall from ground level: Code(s): W18.30XA - Fall on same level, unspecified, initial encounter Status: Acute Assessment and Plan: Patient sustained a ground level fall after taking muscle relaxers and trazodone, became dizzy falling on his left side and twisting his left ankle. 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 * Ice and elevate * Michele wrap for support * will need crutch training * PT and OT ordered * continue pain control (4) Left shoulder pain: Code(s): M25.512 - Pain in left shoulder Status: Acute Assessment and Plan: * left shoulder x-ray shown polyarticular osteoarthritis * continue pain control (5) Generalized weakness: Code(s): R53.1 - Weakness Status: Acute Assessment and Plan: * PT and OT ordered * Will need crutch training * care coordination following- working on placement (6) Hyperlipidemia: Code(s): E78.5 - Hyperlipidemia, unspecified Status: Acute Assessment and Plan: * continue aspirin and rosuvastatin (7) Hypertension: Code(s): I10 - Essential (primary) hypertension Status: Acute Assessment and Plan: * blood pressures ranging 114/58 to 149/90 * continue lisinopril, amlodipine, hydrochlorothiazide,and Avapro (8) Hypothyroidism: Code(s): E03.9 - Hypothyroidism, unspecified Status: Acute Assessment and Plan: * continue Synthroid * tsh rechecked- 9.890 * will increase to 87.5 mcg * will need recheck in DS: Summary Hospital Course Hospital Course: 69-year-old male with a significant past medical history of hypothyroidism, arthritis, hypertension, hyperlipidemia, CVA who presented to the hospital with complaints of left ankle and left shoulder pain. He states that he had a ground level fall 4 days ago on Monday night after he took 2 doses of his muscle relaxer and trazodone causing him to feel dizzy and fall to the ground. He had shoulder pain for those four days but the left ankle started hurting today and was unable to bear weight on it. That prompted him to come in for further evaluation. Workup in the hospital included a cervical spine CT which was negative for fracture, showed severe cervical spondylosis, cervical dextroscoliosis and kyphosis. Head CT was negative for any acute intracranial hemorrhage, mass or infarct, shown atrophy and chronic white matter changes. Left ankle x-ray showed hetero trophic ossification distal to medial and lateral malleoli, likely chronic no specific evidence of acute fracture, there was ankle soft tissue swelling noted on the x-ray. left shoulder x-ray showed polyarticular osteoarthritis. Initial labs showed a white blood cell count of 12.5, hemoglobin 12.4, potassium 3.2, total bili 1.9. UA was obtained which showed 1+ urine protein, 1+ urine bili, 2.0 urine urobilinogen. respiratory panel was negative for influenza a, influenza B, RSV, COVID. EKG showed sinus rhythm with sinus arrhythmia with a rate of 96, QTC 472. Patient was given 40 mEq of potassium, [place], Tylenol while in the ED. he was also showed how to use crutches however had issues while in the ED with weight-bearing on his left ankle and was not able to help him get off of the stretcher. He is being admitted for observation and PT/ OT evaluation as it was deemed not safe to send home at this time. Patient was hospitalized on 08/08. Assumed care on 08/19 and 08/20. As per patient patient has a chronic history of neck pain and stiffness for which his new PCP prescribed trazodone ?. Patient doubled his the dosage and had a fall. During the hospitalization patient was confused and was also hallucinating. MRI was performed which shows 1. Brain atrophy with deep white matter ischemic changes. White matter disease is not excluded.2. No acute infarct or hemorrhage. No masses or enhancing lesions seen.Patient had spinal tap which shows bacterial infection. CSF culture shows no organisms. Patient is currently on cefepime, vancomycin and ampicillin. Before the spinal tap the patient was receiving ceftriaxone due to possible pneumonia. The CSF culture do not show listeria so we discontinue ampicillin. Patient will continue ceftriaxone and vancomycin for 2 weeks. After completion of the antibiotics the patient needs to see ID as an outpatient.Syphilis, hepatitis and HIV negative. Status at Discharge Cognitive/behavioral status at discharge: Stable Time Spent with Patient Time attestation: Total time spent providing and/or coordinating discharge services: 45 minute Exam Narrative: General: alert and oriented Cardiac: Normal S1 and S2. RRR, No murmur, gallops or friction rubs, peripheral pulses intact. Respiratory: ls coarse, no other adventitious lung sounds, currently on room air Gastrointestinal: soft, non-distended, non-tender, normoactive bowel sounds. : voiding without difficulty. Extremities: moves all extremities well,mild edema left ankle Skin: clean, dry, intact. No wounds or lesions. Neuro: Alert and awake. cranial nerves intact, no neuro deficits. Psych: normal mood, normal affect, interactive Discharge Plan Discharge Attending physician on discharge: Dennis Stern Consulting providers: Isidoro Bazzi; Arpit Paul Discharging Clinician: Dennis Stern Anticipated Discharge Date/Time: 08/20/24 13:54 Patient Disposition: Hospital Swing Bed Activity: as tolerated Diet: regular Discharge Instructions: Please continue the antibiotics ceftriaxone and vancomycin until August 27, 2024 for Bacterial meningitis. Request to make an appointment with infectious disease as an outpatient If patient develops any neurological deficits or new onset of confusion, patient needs immediate tertiary care center transfer. Patient Instructions: Antibiotic Form Patient Language: Barbadian Stand Alone Forms: General Discharge Information Discharge Medications: New calcium carbonate 500 mg calcium (1,250 mg) Tablet,Chewable 200 mg PO Q6H PRN (Reason: Indigestion) Qty: 60 0RF ceftriaxone 2 gram Recon Soln 2 g IV Q12HR Qty: 10 12RF enoxaparin [Lovenox] 40 mg/0.4 mL Syringe 40 mg subcut DAILY Qty: 4 12RF folic acid 1 mg Tablet 1 mg PO DAILY Qty: 30 0RF guaifenesin [Mucus Relief ER] 600 mg Tablet Extended Release 12hr 600 mg PO Q12HR PRN (Reason: coughing) Qty: 30 0RF quetiapine [Seroquel] 25 mg Tablet 25 mg PO HS Qty: 30 0RF vancomycin 1.5 gram Recon Soln 1,500 mg IV Q12H Qty: 10 12RF Continued lisinopril-hydrochlorothiazide 20-12.5 mg tablet 1 tablet PO DAILY magnesium oxide 400 mg (241.3 mg magnesium) tablet 400 mg PO BID amlodipine 10 mg tablet 10 mg PO DAILY irbesartan 150 mg tablet 150 mg PO DAILY rosuvastatin 10 mg tablet 10 mg PO DAILY trazodone 150 mg tablet 150 mg PO QHS levothyroxine 75 mcg tablet 75 mcg PO DAILY cyclobenzaprine 10 mg tablet 10 mg PO BID PRN (Reason: muscle spasm) aspirin 81 mg tablet,chewable 81 mg PO DAILY Held esomeprazole magnesium [Nexium 24HR] 20 mg tablet,delayed release (DR/EC) 20 mg PO DAILY Hold Instructions: Resume on 08/23/24. Patient Comments: to be resumed 08-23-24 Date of admission: 08/09/24 07:39 Primary Care Provider: UNKNOWN,DOCTOR Admitting Provider: Chandler Fang Attending physician on admission: Chandler Fang Condition: Stable
== END 2024-08-20 14:50 | disposition swing bed (61) | DRG 94 ==
LOC: ANHED 21:44 → ANH3MED 22:16
PROVIDERS: Family Medicine; Internal Medicine; Nurse Practitioner; Nurse Practitioner Acute Care; Student in an Organized Health Care Education/Training Program; Admitting Provider Family Medicine; Emergency Provider Student in an Organized Health Care Education/Training Program; Visit Provider General Practice
DX: G00.9 Bacterial meningitis, unspecified (principal); J18.9 Pneumonia, unspecified organism; I10 Essential (primary) hypertension; E03.9 Hypothyroidism, unspecified; E78.5 Hyperlipidemia, unspecified; M19.019 Primary osteoarthritis, unspecified shoulder; M47.812 Spondylosis without myelopathy or radiculopathy, cervical region; G89.29 Other chronic pain; R41.82 Altered mental status, unspecified; F17.210 Nicotine dependence, cigarettes, uncomplicated; Z20.822 Contact with and (suspected) exposure to COVID-19; Z86.73 Personal history of transient ischemic attack (TIA), and cerebral infarction without residual deficits; Z79.82 Long term (current) use of aspirin
CPT/HCPCS: 36415; 36569; 36600; 62329; 70450; 70496; 70498; 70553; 71045; 72125; 73030; 73610; 80053; 80061; 80074; 80202; 81001; 82140; 82607; 82746; 82805; 82945; 83605; 83735; 84100; 84145; 84157; 84439; 84443; 84480; 85018; 85025; 85610; 85730; 86593; 86617; 86703; 87040; 87070; 87086; 87529; 87637; 89051; 92610; 92611; 93005; 95816; 96374; 96375; 97110; 97162; 97166; 97530; 97535; 99285; A9270; A9579; C1751; G0378; G0432; J0290; J0456; J0612; J0696; J1630; J1650; J2003; J2060; J3370; J3411; J3475; J7030; J8540; Q9967

== ENCOUNTER 2024-08-20 15:35 | Inpatient (IN) | payer MEDICARE, SELFPAY ==
[2024-08-20 15:48] VITALS: BMI 30.3
[2024-08-20 16:00] VITALS: BP 119/76; PULSE 80; RESP 18; TEMP 36.4; O2SAT 97
--- NOTE | 2024-08-20 16:40 | ADMGEN ---
This patient, Joni Garrido, was admitted to 2nd Floor Room 208-2. Patient/family oriented to hospital policies and general routines including ID bracelet, bed and alarms, visiting hours, pain management, procedures, bathroom and other care routines, personal items, smoking policy, room service/diet, and visiting hours. Information on how to activate the Rapid Response Team has been discussed. Patient/Family are encouraged to report perceived risks to care and to ask questions if they do not understand what they are told or what they should do.
--- NOTE | 2024-08-20 17:35 | P.HP_ITS ---
H&P: HPI History of Present Illness Date/Time: 08/20/24 17:35 Chief Complaint: Rehab Narrative: This is a 69 year old male with a significant past medical history of Hypothyroidism, arthritis, hypertension, hyperlipidemia, CVA, meningitis, current every day smoker who presented to [facility] for continued antibiotics for bacterial meningitis. He originally presented to [facility] on 08/08/24 for evaluation after a fall and altered mental status. He was complaining of left ankle and left shoulder pain when he 1st presented. Workup in the hospital did not show any acute fractures. head CT was also negative. Patient was reported to have a stiff neck with neck pain and saw his primary care doctor who prescribed him trazodone. Patient doubled his dose and that is how he fell. During the hospitalization he became more confused with hallucinations on 08/10/24 and Neurology was consulted. MRI was performed which showed brain atrophy with deep white matter ischemic changes, no acute infarct or hemorrhage, no masses or enhancing lesions. He then had a spinal tap and CS culture showed no organisms. He was started on cefepime, vancomycin, ampicillin Initially. Prior to the spinal tap he was receiving Rocephin due to possible pneumonia. Infectious Disease pharmacist recommended to go with Rocephin and with vancomycin for 14 days for bacterial meningitis coverage. He will finish his course of antibiotics on the night August 27. He will need to follow up with Infectious Disease pharmacy on an outpatient. His cerebral spinal fluid was tested for syphilis, hepatitis, and HIV and was negative. Other labs are still pending. On exam patient denies any new complaints today. He denies any fever, chills, nausea, vomiting, diarrhea, abdominal pain, chest pain, shortness a breath. He is alert and oriented x3, vital signs are stable, he is afebrile, he is currently on room air. Patient came to swing bed here at [facility] to finish antibiotic therapy and also to receive additional rehab. Review of Systems Review of Systems: All systems reviewed & are unremarkable except as noted in HPI and below PMFSH Past Medical History Medical History (Updated 08/20/24 @ 23:09 by Bee Jacinto APRN) Tobacco abuse Meningitis Hypothyroidism Arthritis Hypertension Hyperlipidemia CVA (cerebral vascular accident) Surgical History Surgical History H/O Spinal surgery History of appendectomy Family History Family History Sibling Family history of cardiovascular disease Other Diabetes mellitus Social History Social History Smoking packs per day: 1 Smoking cigarettes per day: 20.0 Smoking status: Current every day smoker Tobacco type: cigarettes Second hand tobacco smoke exposure: Yes Alcohol intake: never Substance use: never Substance use type: does not use Do You Feel Safe in your Home?: Yes Lack of Transportation: No Lack of Food: Never True Current Housing: I Have Housing Concerned About Future Housing: No Difficulty Paying Gas/Electric Bills: No Difficulty Paying for Meds: No Currently Unemployed: No Education: High School Diploma/GED Difficulty w/ Childcare or Family Care: No Gender identity (if verbalized by the patient): Male Spiritual care concerns: No Meds Home Medications and Allergies Home Medications ?Medication ?Instructions ?Recorded ?Confirmed ?Type amlodipine 10 mg tablet 10 mg PO DAILY 11/12/20 08/20/24 History irbesartan 150 mg tablet 150 mg PO DAILY 11/12/20 08/20/24 History lisinopril 20 1 tablet PO DAILY 11/12/20 08/20/24 History mg-hydrochlorothiazide 12.5 mg tablet magnesium oxide 400 mg (241.3 mg 400 mg PO BID 11/12/20 08/20/24 History magnesium) tablet rosuvastatin 10 mg tablet 10 mg PO DAILY 11/12/20 08/20/24 History aspirin 81 mg chewable tablet 81 mg PO DAILY 08/08/24 08/20/24 History cyclobenzaprine 10 mg tablet 10 mg PO BID PRN muscle spasm 08/08/24 08/20/24 History esomeprazole magnesium 20 mg 20 mg PO DAILY 08/08/24 08/20/24 History tablet,delayed release (Nexium 24HR) levothyroxine 75 mcg tablet 75 mcg PO DAILY 08/08/24 08/20/24 History trazodone 150 mg tablet 150 mg PO QHS 08/08/24 08/20/24 History calcium carbonate 200 mg (0.4 x 500 mg calcium 08/20/24 08/20/24 Rx (1,250 mg)) PO Q6H PRN Indigestion #60 tabs ceftriaxone 2 gram intravenous 2 g IV Q12HR #10 ea 08/20/24 08/20/24 Rx solution enoxaparin 40 mg/0.4 mL 40 mg (0.4 mL) subcut DAILY #4 mL 08/20/24 08/20/24 Rx subcutaneous syringe (Lovenox) folic acid 1 mg tablet 1 mg PO DAILY #30 tabs 08/20/24 08/20/24 Rx guaifenesin 600 mg tablet, 600 mg PO Q12HR PRN coughing #30 08/20/24 08/20/24 Rx extended release 12 hr (Mucus tabs Relief ER) quetiapine 25 mg tablet (Seroquel) 25 mg PO HS #30 tabs 08/20/24 08/20/24 Rx vancomycin 1.5 gram intravenous 1,500 mg IV Q12H #10 ea 08/20/24 08/20/24 Rx solution Allergies Allergy/AdvReac Type Severity Reaction Status Date / Time No Known Allergies Allergy Verified 08/08/24 11:52 Vital Signs Vital Signs - 24 hr 08/20/24 16:00 Temperature 97.5 F L Pulse Rate 80 Respiratory Rate 18 Blood Pressure 119/76 Pulse Oximetry 97 Oxygen Delivery Room Air Exam Narrative: General: In no acute distress, well nourished Head: atraumatic, no encephalopathy Eyes: PERRLA, sclera clear ENT: moist mucous membranes, nasal passages clear Neck: supple, no JVD, no adenopathy, trachea midline Cardiac: Normal S1 and S2. RRR, No murmur, gallops or friction rubs, peripheral pulses intact. Respiratory: Expiratory wheezing noted bilaterally with mild rhonchi, no adventitious lung sounds, currently on room air Gastrointestinal: soft, non-distended, non-tender, normoactive bowel sounds. : voiding without difficulty. Extremities: moves all extremities well, no edema Skin: clean, dry, intact. No wounds or lesions. Neuro: Alert and oriented x4, cranial nerves intact, no neuro deficits. 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 * cerebral spinal fluid shown 81 neutrophils, 118 total protein (2) Generalized weakness: Code(s): R53.1 - Weakness Status: Acute Assessment and Plan: * PT and OT ordered (3) Hypertension: Code(s): I10 - Essential (primary) hypertension Status: Acute Assessment and Plan: * Blood pressure ranging 117/57-156/80 * Continue amlodipine and Avapro * ???He was noted to be on Lisinopril/HCTZ as well. I currently put this on hold for now until we can clarify with the patient. (4) Hyperlipidemia: Code(s): E78.5 - Hyperlipidemia, unspecified Status: Acute Assessment and Plan: * continue Rosuvastatin and aspirin (5) Hypothyroidism: Code(s): E03.9 - Hypothyroidism, unspecified Status: Acute Assessment and Plan: * continue synthroid (6) Tobacco abuse: Code(s): Z72.0 - Tobacco use Status: Acute Assessment and Plan: * Nicotine patch ordered * Current 1 pack per day smoker Hospitalist MIPS Advance Care Plan I have confirmed that the patient's Advanced Care Plan is present, code status is documented, or surrogate decision maker is listed in patient medical record.: Yes Medication Reconciliation I have utilized all available resources to obtain, update and review the patients current medications (includes all prescriptions, OTC, herbals, cannabis, and nutritional supplements).: Yes
--- OUTSIDE RECORDS SUMMARY | 2024-08-20 18:12 | XMS_ITS | Referral Summary ---
Author Organization [facility] Address [address] [place] [address] Phone Care Team Providers Care Fire Equipment Operator Name Role Phone Endy Carrero MD Unavailable [phone] Derick Clemente MD Primary Care Provider Encounters Date Type Department Care Team Description 08/19/2024 Telephone [facility] Primary Care at [address] [phone] Derick Clemente MD Additional Services Or Orders 08/19/2024 Telephone [facility] Primary Care at [address] [phone] Derick Clemente MD 08/16/2024 Telephone [facility] Primary Care at [address] [phone] Derick Clemente MD Medical Question/Miscellaneous 08/05/2024 Telephone [facility] Primary Care at [address] [phone] Derick Clemente MD Medical Question/Miscellaneous 08/01/2024 8:30 AM [facility] Office Visit [facility] Primary Care at [address] [phone] Derick Clemente MD Preventative health [...] allergies Medications aspirin 81 mg enteric coated tabletIndications: prevention of thrombosis Take 1 tablet (81 mg total) by mouth every morning Active magnesium oxide (MAG-OX) 400 mg (241.3 mg elemental magnesium) tabletIndications: Essential (primary) hypertension TAKE 2 TABLETS(800 MG) BY MOUTH TWICE DAILY 360 tablet 1 12/13/19 24 Active amLODIPine (NORVASC) 10 mg tabletIndications: Essential (primary) hypertension TAKE 1 TABLET(10 MG) BY MOUTH EVERY NIGHT 100 tablet 1 06/19/19 25 Active levothyroxine (SYNTHROID) 75 mcg tabletIndications: Acquired hypothyroidism TAKE 1 TABLET BY MOUTH EVERY MORNING BEFORE BREAKFAST 100 tablet 1 06/25/19 25 Active irbesartan (AVAPRO) 300 mg tabletIndications: Essential (primary) hypertension TAKE 1 TABLET(300 MG) BY MOUTH DAILY 90 tablet 1 07/16/[address] (NexIUM) 20 mg capsule Take 1 capsule (20 mg total) by mouth daily before breakfast Active traZODone (DESYREL) 150 mg tabletIndications: Primary insomnia Take 1 tablet (150 mg total) by mouth nightly as needed for sleep 90 tablet 3 08/02/19 25 Active rosuvastatin (CRESTOR) 20 mg tabletIndications: Hypercholesterolem ia Take 1 tablet (20 mg total) by mouth daily 100 tablet 3 08/02/19 25 Active cyclobenzaprine (FLEXERIL) 10 mg tabletIndications: Muscle Spasm Take 1 tablet (10 mg total) by mouth 2 (two) times a day as needed for muscle spasms (neck stiffness) 30 tablet 1 08/02/[address] (NexIUM) 20 mg capsuleIndications :acid reflux Take 1 capsule (20 mg total) by mouth every morning 025 Discontin ued(Thera py completed ) erythromycin (ILOTYCIN) ophthalmic ointment Apply to eyelid incisions 3 [address] a day[address] Only place ointment in the eyes if they are irritated. 3.5 g 3 10/09/19 24 025 Discontin ued(Thera py completed ) rosuvastatin (CRESTOR) 20 mg tabletIndications: High cholesterol Take 1 tablet (20 mg total) by mouth daily 100 tablet 3 11/23/19 24 025 Discontin ued(Reord er) doxepin (SINEquan) 10 mg capsule Take 1 capsule (10 mg total) by mouth nightly as needed for sleep 90 capsule 02/23/20 24 025 Discontin ued(Thera py completed ) cyclobenzaprine (FLEXERIL) 10 mg tabletIndications: Neck strain, initial encounter Take 1 tablet (10 mg total) by mouth 3 (three) times a day as needed for muscle spasms 20 tablet 04/26/20 24 025 Discontin ued(Thera py completed ) methylPREDNISolone (MEDROL DOSEPACK) 4 mg DosepackIndication s:Neck strain, initial encounter Take 6 tabs on day 1, reduce dose by 1 daily until prescription is complete. 1 packet 04/26/20 24 025 Discontin ued(Thera py completed ) traZODone (DESYREL) 150 mg tablet Take 1 tablet (150 mg total) by mouth nightly 025 Discontin ued(Reord er) ergocalciferol (VITAMIN D) 50,000 unit capsule Take 1 capsule (50,000 Units total) by mouth once a week 025 Discontin ued(Thera py completed ) Active Problems Problem Noted Date Diagnosed Date Gastroesophageal reflux disease without esophagi tis 08/01/2024 Assessment & Plan (08/01/2024 8:56 AM [facility]): - chronic condition, stable status - takes Nexium OTC daily - continue current management Vitamin D deficiency 08/01/2024 Assessment & Plan (08/01/2024 8:58 AM [facility]): - hx of vitamin D def - not on any supplements, recheck labs, order placed No results found for: 25HYDROVITD [facility] care 08/01/2024 Assessment & Plan (08/01/2024 9:12 AM [facility]): - New or chronic worsening conditions: Insomnia [...] 08/01/2024 Assessment & Plan (08/01/2024 9:09 AM [facility]): - Reports intermittent neck stiffness, requesting muscle [...] 11/23/2023 Assessment & Plan (08/01/2024 8:50 AM [facility]): Wt Readings from Last 3 Encounters: 08/01/24 [...] 05/01/2023 Assessment & Plan (05/01/2023 6:59 PM [facility]): Acute issues. Patient has slight redness with a small area that looks like there might be a clogged gland or cyst within the medial canthus of the left eye. Exact etiology is unclear. Recommended ophthalmology evaluation and warm compresses Acquired hypothyroidism 10/28/2022 Assessment & Plan (08/01/2024 8:51 AM [facility]): - chronic condition - status: well controlled [...] results Assessment & Plan (05/01/2023 6:52 PM [facility]): Chronic. Relatively euthyroid. Continue levothyroxine. Adjust as needed Nicotine dependence with current use 10/28/2022 Assessment & Plan (08/01/2024 8:54 AM [facility]): Social History Tobacco Use Smoking Status Every [...] riskss Assessment & Plan (05/01/2023 6:53 PM [facility]): Chronic. Patient reports he has cut back some. Counseled to quit. Reviewed health risk Essential (primary) hypertension 02/24/2022 Assessment & Plan (08/01/2024 8:51 AM [facility]): Blood Pressure Management BP Readings from Last [...] discussed Assessment & Plan (05/01/2023 6:52 PM [facility]): Chronic. HTN controlled. Cont prescription Rx. Low sodium diet (DASH or Mediterranean), exercise, wt loss (if over weight) discussed Hypercholesterolemia 02/24/2022 Assessment & Plan (08/01/2024 8:53 AM [facility]): - chronic condition - status: is adequately [...] again Assessment & Plan (05/01/2023 6:52 PM [facility]): Chronic. Tolerates medication. Patient reports fair compliance with medication. Check and adjust as needed. 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 Stable. Asymptomatic. Continue risk factor modfication with ASA, statin BP control. Counseled to quit smoking Assessment & Plan (05/01/2023 6:52 PM [facility]): Chronic. Continue risk factor modification with high intensity cholesterol medication, blood pressure control, aspirin Primary insomnia 02/24/2022 Assessment & Plan (08/01/2024 8:52 AM [facility]): - chronic condition, worse - has been out of his medication for months - restart Trazodone 150 mg nightly, script sent in Assessment & Plan (11/23/2023 2:59 PM CDT): Chronic. Controlled. Continue trazodone Assessment & Plan (05/01/2023 6:52 PM [facility]): Chronic. Work on sleep hygiene. Continue can [...] on file Legal Sex Male 2:41 AM [facility] Gender Identity Not on file Sexual Orientation Not on file Last Filed Vital Signs Vital Sign Reading Time Taken Comments Blood Pressure 132/84 08/01/2024 8:31 AM [facility] Pulse 80 08/01/2024 8:31 AM [facility] Temperature 36.8 C (98.2 F) 08/01/2024 8:31 AM [facility] Respiratory Rate 20 04/26/2024 2:30 PM [facility] Oxygen Saturation 98% 08/01/2024 8:31 AM [facility] Inhaled Oxygen Concentration - - Weight 96.3 kg (212 lb 6.4 oz) 08/01/2024 8:31 A M [facility] Height 172.7 cm (5' 8 ) 08/01/2024 8:31 AM [facility] Body Mass Index 32.3 08/01/2024 8:31 AM [facility] Plan of Treatment Not on file Medical Devices Implanted Type Area Potato Grader Device Identifier Shelf Expiration Date Model / Serial / Lot Cardiac Stent X 1 N/A: Heart Procedures Procedure Name Priority Date/Time Associated Diagnosis Comments PSA SCREEN Routine 12/26/2023 8:25 AM CDT Annual physical exam BPH without urinary obstruction HEPATITIS C ANTIBODY Routine 06/02/2022 8:14 AM [facility] Encounter for hepatitis C screening test for [...] 8:25 AM CDT 12/26/2023 2:23 PM CDT us Balbina Be MD LAB BLOOD ORDERABLES F inal Result [facility] [id number] Department [place] [address] * Hepatitis C antibody (06/02/2022 8:14 AM [facility]) Hep C Ab Nonreactive Nonreactive [facility] [...] revised on 2019. Blood 06/02/2022 8:14 AM [facility] 06/02/2022 3:36 PM [facility] Balbina Be MD LAB MICROBIOLOGY - GEN ERAL ORDERABLES Final Result [facility] [id number] Department [place] [address] from Last 3 Months or Most Recently Relevant to Health Maintenance Insurance MEDICARE [facility] MEDICARE [facility] MEDICARE BLUE CROSS MEDICARE SUPPLEMENT MEDICARE [facility] Care Teams Fire Equipment Operator Relationship Specialty Start Date End Date Derick Clemente MD [address] [place] [address] DR PEDRO CRAWFORD [address] [place] [id number] PCP - General Family Medicine 08/01/24 Endy Carrero MD [address] [place] [address] Referring Physician Plastic Surgery 06/01/22
--- OUTSIDE RECORDS SUMMARY | 2024-08-20 18:12 | XMS_ITS | Clinical Summary ---
Author Organization [facility] Address [address] [place] [address] Phone Care Team Providers Care After School Driver Name Role Phone Endy Carrero MD Unavailable [phone] Derick Clemente MD Primary Care Provider Allergies [...] 08/01/2024 Assessment & Plan (08/01/2024 8:56 AM BRAKE ASSEMBLER): - chronic condition, stable status - takes Nexium OTC daily - continue current management Vitamin D deficiency 08/01/2024 Assessment & Plan (08/01/2024 8:58 AM BRAKE ASSEMBLER): - hx of vitamin D def - not on any supplements, recheck labs, order placed No results found for: 25HYDROVITD Preventative health care 08/01/2024 Assessment & Plan (08/01/2024 9:12 AM BRAKE ASSEMBLER): - New or chronic worsening conditions: Insomnia [...] 08/01/2024 Assessment & Plan (08/01/2024 9:09 AM BRAKE ASSEMBLER): - Reports intermittent neck stiffness, requesting muscle [...] 11/23/2023 Assessment & Plan (08/01/2024 8:50 AM BRAKE ASSEMBLER): Wt Readings from Last 3 Encounters: 08/01/24 [...] 05/01/2023 Assessment & Plan (05/01/2023 6:59 PM BRAKE ASSEMBLER): Acute issues. Patient has slight redness with a small area that looks like there might be a clogged gland or cyst within the medial canthus of the left eye. Exact etiology is unclear. Recommended ophthalmology evaluation and warm compresses Acquired hypothyroidism 10/28/2022 Assessment & Plan (08/01/2024 8:51 AM BRAKE ASSEMBLER): - chronic condition - status: well controlled [...] results Assessment & Plan (05/01/2023 6:52 PM BRAKE ASSEMBLER): Chronic. Relatively euthyroid. Continue levothyroxine. Adjust as needed Nicotine dependence with current use 10/28/2022 Assessment & Plan (08/01/2024 8:54 AM BRAKE ASSEMBLER): Social History Tobacco Use Smoking Status Every [...] riskss Assessment & Plan (05/01/2023 6:53 PM BRAKE ASSEMBLER): Chronic. Patient reports he has cut back some. Counseled to quit. Reviewed health risk Essential (primary) hypertension 02/24/2022 Assessment & Plan (08/01/2024 8:51 AM BRAKE ASSEMBLER): Blood Pressure Management BP Readings from Last [...] discussed Assessment & Plan (05/01/2023 6:52 PM BRAKE ASSEMBLER): Chronic. HTN controlled. Cont prescription Rx. Low sodium diet (DASH or Mediterranean), exercise, wt loss (if over weight) discussed Hypercholesterolemia 02/24/2022 Assessment & Plan (08/01/2024 8:53 AM BRAKE ASSEMBLER): - chronic condition - status: is adequately [...] again Assessment & Plan (05/01/2023 6:52 PM BRAKE ASSEMBLER): Chronic. Tolerates medication. Patient reports fair compliance with medication. Check and adjust as needed. LDL goal less than 70 Coronary artery disease invo lving andreafski coronary artery of andreafski heart without angina pectoris 02/24/2022 Assessment & Plan (11/23/2023 2:59 PM CDT): Chronic. Stable. Asymptomatic. Continue risk factor modfication with ASA, statin BP control. Counseled to quit smoking Assessment & Plan (05/01/2023 6:52 PM BRAKE ASSEMBLER): Chronic. Continue risk factor modification with high intensity cholesterol medication, blood pressure control, aspirin Primary insomnia 02/24/2022 Assessment & Plan (08/01/2024 8:52 AM BRAKE ASSEMBLER): - chronic condition, worse - has been out of his medication for months - restart Trazodone 150 mg nightly, script sent in Assessment & Plan (11/23/2023 2:59 PM CDT): Chronic. Controlled. Continue trazodone Assessment & Plan (05/01/2023 6:52 PM BRAKE ASSEMBLER): Chronic. Work on sleep hygiene. Continue can trazodone Resolved Problems Problem Noted Date Diagnosed Date Resolved Date Conjunctival lesion 10/03/2023 08/02/19 25 Cicatricial ectropion of left lower eyelid 08/30/2023 08/01/2024 Lesion of conjunctiva 08/30/20232024 Cervicalgia 02/24/2022 08/01/2024 Encounters Date Type Department Care Team Description 08/19/2024 Telephone [facility] Primary Care at [address] [phone] Derick Clemente MD Additional Services Or Orders 08/19/2024 Telephone [facility] Primary Care at [address] [phone] Derick Clemente MD 08/16/2024 Telephone [facility] Primary Care at [address] [phone] Derick Clemente MD Medical Question/Miscellaneous 08/05/2024 Telephone [facility] Primary Care at [address] [phone] Derick Clemente MD Medical Question/Miscellaneous 08/01/2024 8:30 AM BRAKE ASSEMBLER Office Visit [facility] Primary Care at [address] [phone] Derick Clemente MD Preventative health care (Primary [...] on file Legal Sex Male 2:41 AM BRAKE ASSEMBLER Gender Identity Not on file Sexual Orientation Not on file Obstetrics History Last Filed Vital Signs Vital Sign Reading Time Taken Comments Blood Pressure 132/84 08/01/2024 8:31 AM BRAKE ASSEMBLER Pulse 80 08/01/2024 8:31 AM BRAKE ASSEMBLER Temperature 36.8 C (98.2 F) 08/01/2024 8:31 AM BRAKE ASSEMBLER Respiratory Rate 20 04/26/2024 2:30 PM BRAKE ASSEMBLER Oxygen Saturation 98% 08/01/2024 8:31 AM BRAKE ASSEMBLER Inhaled Oxygen Concentration - - Weight 96.3 kg (212 lb 6.4 oz) 08/01/2024 8:31 A M BRAKE ASSEMBLER Height 172.7 cm (5' 8 ) 08/01/2024 8:31 AM BRAKE ASSEMBLER Body Mass Index 32.3 08/01/2024 8:31 AM BRAKE ASSEMBLER Plan of Treatment Health Maintenance Due Date [...] history exists Well Visit 65+ 08/01/2025 08/01/2024, 12/0 08/2022, 06/01/2022 Hepatitis C Screening Completed 06/02/2022 Prostate Cancer Screening-PSA Discontinued 12/26/2023, 06/02/2022 Medical Devices Implanted Type Area Abrasive Grader Helper Device Identifier Shelf Expiration Date Model / Serial / Lot Cardiac Stent X 1 N/A: Heart Procedures Procedure Name Priority Date/Time Associated Diagnosis Comments PSA SCREEN Routine 12/26/2023 8:25 AM CDT Annual physical exam BPH without urinary obstruction HEPATITIS C ANTIBODY Routine 06/02/2022 8:14 AM BRAKE ASSEMBLER Encounter for hepatitis C screening test for [...] BLOOD ORDERABLES F inal Result [facility] [id number] [address] [place] [address] * Hepatitis C antibody (06/02/2022 8:14 AM BRAKE ASSEMBLER) Hep C Ab Nonreactive Nonreactive [facility] [...] revised on 2019. Blood 06/02/2022 8:14 AM BRAKE ASSEMBLER 06/02/2022 3:36 PM BRAKE ASSEMBLER Balbina Be MD LAB MICROBIOLOGY - GEN ERAL ORDERABLES Final Result [facility] [id number] [address] Department [place] [address] from Last 3 Months or Most Recently Relevant to Health Maintenance Insurance MEDICARE [facility] MEDICARE [facility] MEDICARE BLUE CROSS MEDICARE SUPPLEMENT MEDICARE [facility] Care Teams After School Driver Relationship Specialty Start Date End Date Derikc Clemente MD [address] [place] [address] DR PEDRO CRAWFORD [address] [place] [id number] PCP - General Family Medicine 08/01/24 [place] [address] [place] [address] [place] [address] Referring Physician Plastic Surgery 06/01/22
--- OUTSIDE RECORDS SUMMARY | 2024-08-20 18:12 | XMS_ITS | Clinical Summary ---
Author Organization [facility] Address [address] [place] [address] Phone Care Team Providers Care Account Executive Key Accounts Name Role Phone Jed Elizabeth MD Primary Care Provider [phone] Allergies No known active allergies Medications clopidogrel [...] different from the original. Dr. Karri Wheeler- Enterostomal Therapy Nurse No known active problems Family History Medical [...] of 2) 2004 INFLUENZA VACCINE (#1) 2023 Preventative Visit- Commercial 05/29/2024 RSV VACCINE (60+ or ) (1 - 1-dose 75+ series) 2029 Medical Devices Implanted Type Area Winder Helper Device Identifier Shelf Expiration Date Model / Serial / Lot Sealant Floseal W/ Adptr 10ml [id number] - [id number] Implanted:Qty: 1 on 02/12/2013 by Juan Daniel Campa MD at [facility] Sealant N/A: Back [employer]- Desktone 04/14/2014 [id number] / / [id number] Insurance [facility] [id number] Advance Directives For more information, please contact: [phone] * Full Code (Latest Code Status on File) Date Activated Date Inactivated Comments 02/12/2013 6:15 AM 02/12/2013 1:36 PM * Full Code Date Activated Date Inactivated Comments 02/12/2013 5:44 AM 02/12/2013 6:15 AM Care Teams Account Executive Key Accounts Relationship Specialty Start Date End Date Jed Elizabeth MD PCP - General Family Practice 12/03/12
--- OUTSIDE RECORDS SUMMARY | 2024-08-20 18:12 | XMS_ITS | Encounter Summary ---
Author Organization [facility] Address [address] [place] [address] Care Team Providers Care Pressure Test Operator Name Role Phone Endy Carrero MD Unavailable [phone] Derick Clemente MD Primary Care Provider Encounter Details Date Type Department Care Team (Late st Contact Info) Description 08/19/[address] 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 Esperanza said she will speak with the Hospital Doctor and let us know who will follow. documented in this encounter Plan of Treatment Not on file documented as of this encounter Visit Diagnoses Not on filedocumented in this encounter Care Teams Pressure Test Operator Relationship Specialty Start Date End Date Derick Clemente MD [address] [place] [address] DR PEDRO Guzman [address] [address] PCP - General Family Medicine 08/01/24 Endy Carrero MD [address] [place] [address] Referring Physician Plastic Surgery 06/01/22 documented as of this encounter
--- OUTSIDE RECORDS SUMMARY | 2024-08-20 18:12 | XMS_ITS | Continuity of Care Document ---
Author Organization [facility] Address [address] [place] [address] Phone Care Team Providers Care Interior Design Principal Name Role Phone Tre PT,MPT,ATC, Pasquale Unavailable Unavai lable Procedures Procedure Date Therapeutic Activities Neuromuscular Re-Ed Therapeutic Exercise Doc neg elder mal no plan Therapeutic Activities PT Evaluation Moderate Complexity Neuromuscular Re-Ed Therapeutic Activities Neuromuscular Re-Ed Therapeutic Exercise Neuromuscular Re-Ed Therapeutic Exercise Therapeutic Activities Hot or Cold Pack PT Evaluation Moderate Complexity Therapeutic Activities Advance Directives Directive Yes / No Effective Date File Name No Information Encounters Encounter Description Practice Location Reason(s) For Visit Diagnoses Date Provider Providers Copied on Encounter [facility] [facility], [place], [place], [id number], tel:[phone] [place] No Information 2 [place], [place]. [facility], [place], [place], [id number], tel:[phone] [place] No Information 2 SOF[place], [place]. Referring Provider: Michael Solorzano, [address], [place], [address]. tel:[phone] [facility], [place], [place], [id number], tel:[phone] [place] No Information 2 [facility]. Referring Provider: Michael Solorzano, [address] [facility] [address], [place], [address]. tel:[phone] [facility], [place], [place], [id number], tel:[phone] [place] No Information 2 [place], [place], . Referring Provider: Michael Solorzano, [address] [facility] [address], [place], [address]. tel:[phone] [facility] [address], [place], [place], [id number], tel:[phone] [place] No Information 2 [place], [place], . Referring Provider: Michael Solorzano, [address] [facility] [address], [place], [address]. tel:[phone] [facility] [address] [facility] [address] [facility] [address], [place], [place], [id number], tel:[phone] [place] No Information 2 [place], [place], . Referring Provider: Michael Solorzano, [address] [facility] [address], [place], [address]. tel:[phone] Family History Family Member Type Diagnosis Age At Onset No Information Payers Payer name Insurance type Covered constitution party ID Authoriza tion(s) Medicare [place] [id number] [facility] [id number] Social History Type Description Quantity Date Captured Comments Sex Male Smoking Status No Information Chief Complaint And Reason For Visit No Information Reason For Referral Reason For Referral No Information Plan Of Treatment Date Type Action Status Goal Tobacco Cessation Counseling completed Goal Tobacco cessation counseling completed Goal Tobacco cessation counseling completed Goal Tobacco Cessation Counseling completed History Of Present Illness Encounter Date Complaint History Of Prese nt Illness No Information Functional Status Date Functional Assessmen t No Information Instructions Date Instruction Additional Infor annecameron Giving encouragement to exercise Related to Overweight Giving encouragement to exercise Related to Overweight Giving encouragement to exercise Related to Overweight Giving encouragement to exercise Related to Overweight Assessments Type Assessment Date No Information Patient Care Teams Name Effective Dates (start - stop) Status Members No Information
--- OUTSIDE RECORDS SUMMARY | 2024-08-20 18:12 | XMS_ITS | Encounter Summary ---
Author Organization [facility] Address [address] [place] [address] Care Team Providers Care Executive Office Manager Name Role Phone Endy Carrero MD Unavailable [phone] Derick Clemente MD Primary Care Provider Reason for Visit * Reason Onset Date Comments Medical Question/Miscellaneous 08/16/2024 Encounter Details Date Type Department Care Team (Late st Contact Info) Description 08/16/2024 Telephone [facility] Primary Care at [address] [place] [address] Derick Clemente MD [address] [place] [address] [address] [place] [address] Medical Question/Miscellaneous Social History Tobacco [...] on file 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 * Telephone Encounter - Derick Clemente MD - 08/16/2024 12:32 PM CDT Yes willing to follow orders * Telephone Encounter - Vanessa Toney - 08/16/2024 8:25 AM CDT Medical Question/Miscellaneous Caller???s Concern: Kenzie with [facility] needs verbal okay that Dr. Clemente will sign and follow for home care orders. They received referral from Abhay. Does message need to be routed? Yes-Action Needed documented in this encounter Plan of Treatment Not on file documented as of this encounter Visit Diagnoses Not on filedocumented in this encounter Care Teams Executive Office Manager Relationship Specialty Start Date End Date Derick Clemente MD [address] [place] [address] DR PEDRO CRAWFORD [address] [place] [address] PCP - General Family Medicine 08/01/24 [place] [address] [place] [address] [place] [address] Referring Physician Plastic Surgery 06/01/22 documented as of this encounter
--- OUTSIDE RECORDS SUMMARY | 2024-08-20 18:12 | XMS_ITS | Encounter Summary ---
Author Organization [facility] Address [address] [place] [address] Care Team Providers Care Telephone Sterilizer Name Role Phone Endy Carrero MD Unavailable [phone] Derick Clemente MD Primary Care Provider Reason for Visit * Reason Onset Date Comments Additional Services Or Orders 08/19/2024 Encounter Details Date Type Department Care Team (Late st Contact Info) Description 08/19/2024 Telephone [facility] Primary Care at [address] [place] [address] Derick Clemente MD [address] [place] [address] [address] [place] [address] Additional Services Or Orders Social History Tobacco Use Types Packs/Day Years [...] on file 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 * Telephone Encounter - Vanessa Rhodes - 08/19/2024 2:53 PM CDT Additional Services or Orders Type of Service Requested:Physical Therapy Duration/Number of Visits: Not determined Is a verbal order acceptable? Yes Reason for Request (e.g. condition/symptom, date of COVID exposure if applicable): Discharge from hospital Details Regarding Additional Services (e.g. type of home health, type of equipment, type of test, etc.): Home health Where will services be performed? (if outside of the practice, facility name, address, phone/fax offacility): Patient's residence Additional Comments: Truong with [facility] is calling to request that the PCP follow the patient for home health. Truong states OT and nursing maybe added to request. Does message need to be routed? Yes-Action Needed documented in this encounter Plan of Treatment Not on file documented as of this encounter Visit Diagnoses Not on filedocumented in this encounter Care Teams Telephone Sterilizer Relationship Specialty Start Date End Date Derick Clemente MD [address] [place] [address] DR PEDRO CRAWFORD [address] [place] [address] PCP - General Family Medicine 08/01/24 Endy Carrero MD [address] [place] [address] Referring Physician Plastic Surgery 06/01/22 documented as of this encounter
--- OUTSIDE RECORDS SUMMARY | 2024-08-20 18:12 | XMS_ITS | Continuity of Care Document ---
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 Name Role Phone Michael Solorzano MD Unavailable Unavailable Allergies, Adverse Reactions, Alerts Substance Reaction Status Criticality No Known Allergies Active No Inform ation Medications Medication Instructions Dosage Effective Dates (start - stop) Status Comments diclofenac sodium 75 mg tablet,delayed release take 1 tablet by oral route 2 times every day PRN for neck pain as needed - Active cyclobenzaprine 10 mg tablet take 1 tablet by oral route every day as needed 10 MG - Active PRN for pain, avoid driving or operate machines trazodone 150 mg tablet take 1 tablet by oral route every day at bedtime - Active avoid driving or operate machines magnesium 400 mg (as magnesium oxide) tablet take two tablet orally BID - Active Norvasc 10 mg tablet take 1 tablet by oral route every day 10 MG - Active irbesartan 300 mg tablet take 1 tablet by oral route every day 300 MG - Active Crestor 10 mg tablet take 1 tablet by oral route every day 10 MG - Active Vitamin D2 1,250 mcg (50,000 unit) capsule take one capsule orally once per week - Active Procedures Procedure Date OFFICE/OUTPATIENT VISIT, EST OFFICE/OUTPATIENT VISIT, EST OFFICE/OUTPATIENT VISIT, EST OFFICE/OUTPATIENT VISIT, EST PPPS, initial visit OFFICE/OUTPATIENT VISIT, EST OFFICE/OUTPATIENT VISIT, EST OFFICE/OUTPATIENT VISIT, EST OFFICE/OUTPATIENT VISIT, EST OFFICE/OUTPATIENT VISIT, EST Initial preventive exam OFFICE/OUTPATIENT VISIT, EST OFFICE/OUTPATIENT VISIT, EST PREV VISIT, EST, AGE 40-64 OFFICE/OUTPATIENT VISIT, EST OFFICE/OUTPATIENT VISIT, EST OFFICE/OUTPATIENT VISIT, EST OFFICE/OUTPATIENT VISIT, EST PREV VISIT, NEW, AGE 40-64 OFFICE/OUTPATIENT VISIT, NEW Advance Directives Directive Yes / No Effective Date File Name No Information Encounters Encounter Description Practice Location Reason(s) For Visit Diagnoses Date Provider Providers Copied on Encounter [facility], [address] [place], [id number], tel:[phone] [facility] No Information 2 Rashad Payton [address], [address] , [place]. tel:[phone] OFFICE/OUTPA TIENT VISIT, [facility], [address], [address], tel:[phone] [facility] neck pain1 (chief complaint) HTN (chief complaint) insomnia1 (chief complaint) mag (chief complaint) Other spondylosis, cervical regionHypomagnesemi aInsomniaEssential (primary) hypertension 2 Rashad Payton [address], [address] , [place]. tel:[phone] OFFICE/OUTPA TIENT VISIT, EST [facility], [address] [place], [address], tel:[phone] [facility] neck pain1 (chief complaint) HTN (chief complaint) mag (chief complaint) Essential (primary) hypertensionCervica lgiaHypomagnesemia 2 Rashad Payton [address], [address] , [place]. tel:[phone] OFFICE/OUTPA TIENT VISIT, [facility], [address] [place], [address], [place] tel:[phone] [facility] mag (chief complaint) insomnia1 (chief complaint) HypomagnesemiaInsom deja 1 Rashad Payton [address], [place], [place], [address] , [place]. tel:[phone] OFFICE/OUTPA TIENT VISIT, [facility], [address], [place], [place], [address], [place] tel:[phone] [facility] mag (chief complaint) glucose1 (chief complaint) back pain1 (chief complaint) HTN (chief complaint) HLP (chief complaint) HypomagnesemiaEssen tial (primary) hypertensionLumbago HyperglycemiaHyperl ipidemia 1 Rashad Payton [address], [address], [place], [place], [address] , [place]. tel:[phone] [facility], [address] [place], [address], [place] tel:[phone] [facility] No Information 1 Rashad Payton [address], [address], [place], [place], [address] , [place]. tel:[phone] OFFICE/OUTPA TIENT VISIT, [facility], [address] [place], [address], [place] tel:[phone] [facility] physical (chief complaint) Encounter for general adult medical exam w abnormal findingsHypomagnese miaEssential (primary) hypertensionInsomni aHyperlipidemiaOthe r specified disorder of bone densityTobacco use 1 Rashad Payton [address], [place], [place], [address] , [place]. tel:[phone] Referring Provider: Michael Solorzano [address] [facility] [address], [place], [place], [address]. tel:[phone] OFFICE/OUTPA TIENT VISIT, [facility], [address], [place], [place], [address], [place] tel:[phone] [facility] neck pain1 (chief complaint) CervicalgiaOther muscle spasm 1 Rashad Payton [address], [place], [address] , [place]. tel:[phone] Referring Provider: Josefina Ramirez [address], [place], [place], [address]. tel:[phone] OFFICE/OUTPA TIENT VISIT, [facility], [address], [place], [place], [address], [place] tel:[phone] [facility] HLP (chief complaint) mag (chief complaint) insomnia1 (chief complaint) HTN (chief complaint) HypomagnesemiaEssen tial (primary) hypertensionHyperli pidemiaInsomnia 0 Rashad Rodriguez. [address], [address], [place], [place], [address] , [place]. tel:[phone] Referring Provider: Josefina Ramirez [address], [place], [place], [address]. tel:[phone] OFFICE/OUTPA TIENT VISIT, [facility], [address], [place], [place], [address], [place] tel:[phone] [facility] HTN (chief complaint) HLP (chief complaint) renal1 (chief complaint) mag (chief complaint) HypomagnesemiaEssen tial (primary) hypertensionHyperli pidemiaRenal disease 0 Rashad Payton [address], [address], [place], [place], [address] , [place]. tel:[phone] Referring Provider: Josefina Ramirez [address], [place], [place], [address]. tel:[phone] OFFICE/OUTPA TIENT VISIT, [facility], [address], [place], [place], [address], [place] tel:[phone] [facility] mag (chief complaint) HLP (chief complaint) osteopenia 1 (chief complaint) renal (chief complaint) insomnia1 (chief complaint) HTN (chief complaint) HyperlipidemiaInsom niaLeukocytosisEsse ntial (primary) hypertensionOther specified disorder of bone densityHypomagnesem iaRenal disease 0 Rashad Rodriguez. [address], [address], [place], [place], [address] , [place]. tel:[phone] Referring Provider: Josefina Ramirez [address], [place], [place], [address]. tel:[phone] OFFICE/OUTPA TIENT VISIT, [facility], [address], [place], [place], [address], [place] tel:[phone] [facility] finger pain1 (chief complaint) PHysical (chief complaint) Essential (primary) hypertensionLeukocy tosisHypokalemiaOth er specified disorder of bone densityInsomniaHype rlipidemiaEncounter for general adult medical exam w abnormal findings 0 Rashad Rodriguez. [address], [address], [place], [place], [address] , [place]. [phone] Referring Provider: Josefina Ramirez [facility] A, [place], [place], [address]. tel:[phone] OFFICE/OUTPA TIENT VISIT, [facility], [address] [place], [place] [address], [address], [place] tel:[phone] [facility] tailbone pain1 (chief complaint) HTN (chief complaint) HLP (chief complaint) wbc (chief complaint) Sacrococcygeal disorderHyperlipide miaEssential (primary) hypertensionLeukocy tosisHypokalemia 9 Rashad Rodriguez. [address], [place], [place], [address] , [place]. [phone] Referring Provider: Josefina Ramirez [facility] [address], [place], [place], [address]. tel:[phone] PREV VISIT, EST, AGE 40-64 [facility], [address], [place], [place], [address], [place] tel:[phone] [facility] Physical (chief complaint) Encounter for general adult medical exam w abnormal findingsHyperlipide miaEssential (primary) hypertensionInsomni a 9 Rashad Rodriguez. [address], [place], [place], [address] , [place]. tel:[phone] Referring Provider: Josefina Ramirez [address], [place], [place], [address]. tel:[phone] OFFICE/OUTPA TIENT VISIT, [facility], [address], [place], [place], [address], [place] tel:[phone] [facility] ED (chief complaint) skin (chief complaint) Nevus, non-neoplasticMale erectile dysfunction, unspecified 9 Rashad Rodriguez. [address], [address], [place], [place], [address] , [place]. tel:[phone] Referring Provider: Josefina Ramirez [address], [place], [place], [address]. tel:[phone] OFFICE/OUTPA TIENT VISIT, [facility], [address], [place], [place], [address], [place] tel:[phone] [facility] insomnia1 (chief complaint) HLP (chief complaint) HTN (chief complaint) smoking1 (chief complaint) nevus1 (chief complaint) InsomniaHyperlipide miaEssential (primary) hypertensionNevus, non-neoplasticTobac co use 8 Rashad Rodriguez. [address], [place], [place], [address] , [place]. tel:[phone] Referring Provider: Josefina Ramirez [address], [place], [place], [address]. tel:[phone] OFFICE/OUTPA TIENT VISIT, [facility], [address], [place], [place], [address], [place] tel:[phone] [facility] Medicine INsomnia1 (chief complaint) HTN (chief complaint) Essential (primary) hypertensionInsomni a 8 Rashad Rodriguez. [address] [facility] [place], [address] , . tel:[phone] Referring Provider: Josefina Ramirez [facility] A, [place], [place], [address]. tel:[phone] PREV VISIT, NEW, AGE 40-64 [facility], [address], [place], [place], [address], [place] tel:[phone] [facility] PHysical (chief complaint) Encounter for general adult medical exam w abnormal findingsEssential (primary) hypertensionCoronar y artery disease of galena coronary artery without angina pectorisInsomniaHyp erlipidemia 8 Rashad Rodriguez. [address], [facility] [place], [address] , . tel:[phone] Referring Provider: Josefina Ramirez [address] [facility] [address], [place], [place], [address]. tel:[phone] Family History Family Member Type Diagnosis Age At Onset Father Problem (finding) CAD (Cause Of ) 78 Brother Problem (finding) CAD (Cause Of ) 78 Sister Problem (finding) CAD and DM (Cause Of De ath) 50 Mother Problem (finding) lung [place] Payers Payer name Insurance type Covered republican ID Authoriza tion(s) No Information Social History Type Description Quantity Date Captured Comments Alcohol Use Details Unknown Caffeine Use Details Unknown Tobacco Use Status Smoking Status No Information Sex Male Chief Complaint And Reason For Visit No Information Plan Of Treatment Date Type Action Status Goal Tobacco cessation counseling completed Goal Special diet education compl eted Goal Tobacco cessation counseling completed Goal Tobacco cessation counseling completed Goal Special diet education compl eted Goal Tobacco cessation counseling completed Goal Special diet education compl eted Goal Tobacco cessation counseling completed Goal Special diet education compl eted Goal Special diet education compl eted Goal Special diet education compl eted Referral Ordered: Otoniel Garibay -[facility] : Internal Medicine : Nephrology (related to Hypomagnesemia) ordered Referral Ordered: MRI NECK SPINE W/O DYE ordered Referral Referred To: Otoniel Garibay [address] [facility]
[address] [place], [place], [id number] Ordered: Referrals: [facility] Phys[facility] : Internal Medicine : Nephrology. Otoniel Garibay. Evaluate and treat ordered Referral Ordered: Physical Therapy (related to Cervicalgia) ordered Referral Ordered: CERVICAL SPINE XRAY 7 VIEWS ordered Referral Referred To: Physical Therapy Ordered: Referrals: Physical Therapy. Evaluate and treat ordered Referral Ordered: Emiliano Thomas -[facility] : Internal Medicine : Nephrology (related to Hypomagnesemia) ordered Referral Referred To: Emiliano Thomas [address] [facility]
[address] [place], [place], [id number] Ordered: Referrals: [facility] : Internal Medicine : Nephrology. Emiliano Thomas. Evaluate and treat ordered Referral Ordered: Nephrology (related to Hypomagnesemia) ordered Referral Ordered: Referrals: Nephrology. Evaluate and treat ordered Referral Ordered: Supa Hoyos -[facility] : Surgery (related to Other specified disorder of bone density) ordered Referral Ordered: SACRUM/COCCYX XRAY ordered Referral Ordered: Supa Hoyos -[facility] : Surgery (related to Nevus, non-neoplastic) ordered Referral Referred To: Supa Hoyos [facility] [address] [place], [place] [id number] Ordered: Referrals: [facility]opathic [facility]opathic Physicians : Surgery. Supa Hoyos. Evaluate and treat ordered History Of Present Illness Encounter Date Complaint History Of Prese nt Illness neck pain1 Pt c/o chronic a nd recurrent neck pain for several years Pt denies any injury Pt denies any radiculopathy Pt denies any arm weakness or tingling. Pt denies any injury. Pt denies any sore throat or pain. Pt feels stiffness left side of neck Pt c/o acute flare up for months Pt has been doing PT but has not helped much Pt states that diclofenac and flexeril do help with the pain. c spine x ray showed severe DDD mag Pt has chronic a nd recurrent low mag Pt denies any muscle cramp, weakness, paresthesia ,chest pain, etc Pt takes mag supplement Pt denies any diarrhea Pt denies any alcohol use. Pt is noncompliant with nephrology referral HTN Pt takes norvasc and irbesartan and his bp is around 130/80 at home. He denies any chest pain or headache or edema or sob insomnia1 Pt has chronic i nsomnia Pt takes trazodone qhs and doing ok Pt denies any snoring or any trouble with breathing at night Pt denies any fatigue neck pain1 Pt c/o chronic a nd recurrent neck pain for several years Pt denies any injury Pt denies any radiculopathy Pt denies any arm weakness or tingling. Pt denies any injury. Pt denies any sore throat or pain. Pt feels stiffness left side of neck Pt c/o acute flare up for several days HTN Pt takes norvasc and irbesartan and his bp is borderline high. Pt denies any chest pain or headache mag Pt has low mag . Pt takes mag. He needs refill he never saw the nephrology due to noncompliance. mag Pt has persisten tly low mag. Pt denies any muscle cramp or any palpitation or muscle pain or weakness Pt is s/p IV mag infusion recently. Pt takes magnesium supplement Pt denies alcohol usage insomnia1 Pt has chronic i nsomnia Pt denies any snoring or any difficulty with breathing at night pt takes trazodone qhs and doing ok Pt needs refill HLP Pt has HLP Pt ta kes crestor Pt denies any myalgia. His lipid profile is ok HTN Pt has HTN. Pt t akes irbesartan 300 mg and norvasc. His bp is around 130/80 at home back pain1 Pt has chronic l ow back pain Pt denies any worsening pain Pt denies any loss of bowel or bladder control Pt denies any sciatica or any leg numbness or tingling or weakness Pt denies any saddle area paresthesia. Pt denies any injury or night time pain. Pt c/o dull and sharp low back pain Pt denies any urinary symptoms glucose1 Pt has borderlin e high glucose. Pt denies any polyuria, polydipsia. mag Pt has persisten tly low mag. Pt denies any muscle cramp or any palpitation or muscle pain or weakness Pt is s/p IV mag infusion recently. Pt takes magnesium TID. physical Pt needs annual physical . Pt has HTN Pt takes norvasc and irbesartan and his bp is still high today ,Pt denies any chest pain or headache. Pt has HLP Pt takes crestor and doing ok Pt denies any myalgia. His lipid profile is ok. Pt has chronic insomnia. Pt takes trazodone qhs and doing ok Pt denies any snoring. Pt also has chronic hypomagnesemia. Pt denies any nausea, vomiting, weakness, poor appetite, numbness or tingling, muscle cramp, seizure, chest pain or palpitation. Pt denies any diarrhea or nausea, vomiting. Pt supposes to take magnesium BID but he only takes once per day for unknown reason. Pt also has borderline high glucose and low D. Pt has osteopenia Pt denies any fracture. neck pain1 Pt has intermitt ent neck pain for several years .Pt denies any injury Pt denies any radiculopathy. pt denies any arm weakness. Pt states that his previous doctor used to give him NSAID which works well pt tried ibuprofen but did not help currently ,Pt states that he woke up with the stiff neck one week ago Pt denies any headache ,rash or any sore throat. Pt denies any fever insomnia1 Pt has chronic i nsomnia .Pt needs trazodone refilled. Pt doing ok with trazodone Pt denies any snoring or fatigue mag Pt has low mag . Pt only has been taking mag once per day instead of bid. his KCL is ok now .Pt denies any muscle cramp or weakness HLP Pt takes crestor . Pt denies any myalgia HTN Pt takes norvasc and irbesartan. His bp is ok at home. Pt told me he needs refills HTN Pt takes norvasc and irbesartan and his bp is around 120/70 Pt denies any edema. Pt denies headache . HLP Pt has HLP Pt ta kes crestor 20 mg and his lipid profile is normal now .Pt denies any myalgia renal1 Pt has stable joan rderline renal disease. Pt has normal UO mag Pt has low mag. Pt denies any muscle cramp HTN Patient take aml odipine and lisinopril hydrochlorothiazide. His blood pressure is around 120/70 at home. insomnia1 Patient has prio r insomnia. Patient denies any snoring. Pt takes trazodone qhs and doing ok. Pt needs refill HLP Patient has hype rlipidemia. Patient takes Lipitor. Patient eats poorly. Patient does not drink alcohol. His lipid panel is not well controlled. He denies any chest pain. mag Pt has low mag. Pt denies any neuropathy, weakness, palpitation, vomiting, muscle spasm, etc .Pt does not drink alcohol osteopenia1 Patient has oste openia and low vitamin D. Patient denies any fracture. renal Patient has bord nilson renal function. Patient has normal urine output. Patient has what mildly elevated WBC. Patient denies any fever chill infection. finger pain1 PHysical Pt needs annual physical pt has HLP. pt takes lipitor. Pt denies any myalgia. Pt has high TG. Pt takes lisinopril/hctz and Norvasc for HTn. His BP is stable. Pt takes trazodone for insomnia Pt denies any snoring Pt denies any hemoptysis, sob or coughing. Pt denies any urinary or GI symptoms. Pt c/o mild pain just proximal to right 4th finger on palm side for 4 weeks Pt denies any injury Pt denies any numbness and tingling Pt feels some radiating pain to right 4th finger without any weakness. Pt denies any discoloration ,Pt denies any warmth. tailbone pain1 Pt fell through a lawn chair one week ago and injured tailbone area. Pt has sharp pain, worse with sitting Pt denies any los back pain Pt denies any sciatica or any loss bladder control. Pt has 8/10 pain when he sits on his tailbone area Pt failed OTC meds. HTN Pt takes lisinop ril and norvasc. Pt does not check his BP at home Pt denies any chest pain or headache HLP Pt has HLP Pt ta kes lipitor. Pt has high TG Pt does not drink excessive alcohol. Pt eats poorly wbc Pt has mild high wbc and low kcl. Pt denies any fever or palpitation Physical Pt needs annual physical pt has HLP. pt takes lipitor. Pt denies any myalgia. Pt has high TG. Pt takes lisinopril/hctz and Norvasc for HTn. His BP is stable. Pt takes trazodone for insomnia Pt denies any snoring Pt denies any hemoptysis, sob or coughing. Pt denies any urinary or GI symptoms Pt denies any other complaints ED Pt has mild ED f or several months Pt denies any chest pain during sex. Pt denies any libido issue pt denies any testicular pain or atrophy. Pt does not have any known CAD. Pt has a coupon for cialis 5 mg daily which is cheaper. skin Pt states that r ight side cheek lesion resolved. Pt never went to see the skin doctor nevus1 Pt has a scabby nevus on right face for several months. Pt denies any bleeding or pain. Pt denies any itching smoking1 Pt states that bethany archer has 20 pack year tobacco but I feel that he maybe smoking more than that. He denies any sob or coughing. Pt denies any hemoptysis HTN Pt takes norvasc and lisinopril/hctz and his Bp is stable. Pt denies any chest pain or headache HLP Pt has HLP. Pt t akes lipitor 10 mg. his lipid profile is high. Pt denies any myalgia insomnia1 Pt has insomnia. Pt takes trazodone. Pt doing ok. pt denies any snoring. pt doing ok INsomnia1 Pt has chronic i nsomnia. Pt takes trazodone and doing ok. Pt denies any snoring or any trouble with breathing at night HTN Pt has HTn. Pt t akes lisinopril and norvasc and his BP is stable. Pt denies any chest pain or headache PHysical Pt needs annual physical. Pt has CAD with stent 2013. Pt does not have any chest pain. Pt has not seen cardiology for several years Pt has HTn Pt taes norvasc and lisinopril./hctz and his BP is stable. Pt has HLP. Pt takes lipitor 10 mg daily. Pt also takes trazodone for insomnia and working ok. Pt denies any snoring or any trouble with breathing at night. pt denies any other complaints Instructions Date Instruction Additional Infor amanda Special diet education Related t o Body mass index (BMI) 34.0-34.9, adult Quit smoking Related to Sacro coccygeal disorder Quit smoking Related to Encou nter for general adult medical exam w abnormal findings Special diet education Related t o Body mass index (BMI) 34.0-34.9, adult Special diet education Related t o Body mass index (BMI) 34.0-34.9, adult Quit smoking Related to Nevus , non-neoplastic Special diet education Related t o Body mass index (BMI) 34.0-34.9, adult Quit smoking Related to Insom deja Stop smoking. Related to Essen tial (primary) hypertension Special diet education Related t o Body mass index (BMI) 33.0-33.9, adult Special diet education Related t o Body mass index (BMI) 34.0-34.9, adult Quit smoking Related to Encou nter for general adult medical exam w abnormal findings Assessments Type Assessment Date No Information
--- OUTSIDE RECORDS SUMMARY | 2024-08-20 18:12 | XMS_ITS | Encounter Summary ---
Author Organization [facility] Healthcare Address [address] [place] [address] Care Team Providers Care Die Welder Name Role Phone Endy Carrero MD Unavailable [phone] Derick Clemente MD Primary Care Provider Reason for Visit * Reason Onset Date Comments Medical Question/Miscellaneous 08/05/2024 Encounter Details Date Type Department Care Team (Late st Contact Info) Description 08/05/2024 Telephone [facility] Primary Care at [address] [place] [address] Derick Clemente MD [address] [place] [address] [address] [place] [address] Medical Question/Miscellaneous Social History Tobacco [...] on file Legal Sex Male 2:41 AM [employer]ICKEL PL[employer] Gender Identity Not on file Sexual Orientation Not on file documented as of this encounter Miscellaneous Notes * Telephone Encounter - Deirck Clemente MD - 08/06/2024 9:13 AM CDT [...] to call [facility] and go to the [facility] // please follow up Does message need to be routed? Yes-Action Needed documented in this encounter Plan of Treatment Not on file documented as of this encounter Visit Diagnoses Not on filedocumented in this encounter Care Teams Die Welder Relationship Specialty Start Date End Date Derick Clemente MD [address] [place] [address] DR PEDRO CRAWFORD [address] [place] [id number] PCP - General Family Medicine 08/01/24 Endy Carrero MD [address] [place] [address] [place] [address] Referring Physician Plastic Surgery 06/01/22 documented as of this encounter
[2024-08-20] MEDS: MAGNESIUM OXIDE 400 MG TABLET PO (18:21)
[2024-08-20] MEDS: NICOTINE (*PBKC) 21 MG PATCH 1 PATCH TRANSDERM (18:21)
[2024-08-20 18:31] LABS: Estimated CRCL calculation 54 ml/min; Estimated Glomerular Filt Rate 57
[2024-08-20] MEDS: CYCLOBENZAPRINE HCL 10 MG TABLET PO (20:37)
[2024-08-20] MEDS: traZODone HCL 50 MG TABLET 150 MG PO (20:37)
[2024-08-20] MEDS: cefTRIAXone 2 GM/NS 100 ML 2 GM/100 ML BAG IVPB (21:16)
[2024-08-20] MEDS: CENTRAL LINE FLUSH 10 ML IV PUSH (22:12)
[2024-08-20 23:52] VITALS: BP 124/78; PULSE 74; RESP 16; TEMP 36.6; O2SAT 96
[2024-08-20] MEDS: QUEtiapine FUMARATE 25 MG TABLET PO (23:59)
--- NOTE | 2024-08-21 01:30 | PC.NURSE ---
pt called for assistance with changing brief, found up out of bed sitting in chair, pt admits to turning off bed alarm, educated on hazards of falling and need for assistance when getting up, bed linens and brief changed, pt back in bed with [id number], rails up x3, bed alarm on, urinal and call light in reach
[2024-08-21 05:39] LABS: Estimated CRCL calculation 48 ml/min; Estimated Glomerular Filt Rate 49
[2024-08-21] MEDS: LEVOTHYROXINE SODIUM 75 MCG TABLET PO (06:22)
[2024-08-21] MEDS: CENTRAL LINE FLUSH 10 ML IV PUSH (06:36)
[2024-08-21 08:00] VITALS: BP 92/51; PULSE 82; RESP 16; TEMP 36.9; O2SAT 94
[2024-08-21] MEDS: ROSUVASTATIN 10 MG TABLET PO (09:26)
[2024-08-21] MEDS: NICOTINE (*PBKC) 21 MG PATCH 1 PATCH TRANSDERM (09:26)
[2024-08-21] MEDS: ASPIRIN 81 MG CHEWABLE TABLET PO (09:27)
[2024-08-21] MEDS: FOLIC ACID 1 MG TABLET PO (09:27)
[2024-08-21] MEDS: PANTOPRAZOLE 40 MG TABLET PO (09:27)
[2024-08-21] MEDS: MAGNESIUM OXIDE 400 MG TABLET PO ×2 (09:27→17:51)
[2024-08-21] MEDS: ENOXAPARIN 40 MG/0.4 ML SYRINGE SUB-Q (09:27)
[2024-08-21] MEDS: cefTRIAXone 2 GM/NS 100 ML 2 GM/100 ML BAG IVPB ×2 (09:34→21:12)
[2024-08-21] MEDS: SALINE LOCK FLUSH 20 ML IV PUSH ×2 (14:00→21:21)
[2024-08-21 16:00] VITALS: BP 128/72; PULSE 80; RESP 18; TEMP 36.5; O2SAT 97
[2024-08-21] MEDS: VANCOMYCIN 1,250 MG/NS 250 ML 1,250 MG/250 ML BAG 166.67 MG IVPB (17:52)
[2024-08-21] MEDS: traZODone HCL 50 MG TABLET 150 MG PO (21:13)
[2024-08-21] MEDS: QUEtiapine FUMARATE 25 MG TABLET PO (21:14)
[2024-08-21] MEDS: CYCLOBENZAPRINE HCL 10 MG TABLET PO (21:14)
[2024-08-22] VITALS: BP 119/68; PULSE 79; RESP 16; TEMP 36.9; O2SAT 95
[2024-08-22 05:47] LABS: Estimated CRCL calculation 50 ml/min; Estimated Glomerular Filt Rate 53
[2024-08-22 06:16] LABS: Vancomycin Trough 16.9 ug/mL (10.0-15.0)
[2024-08-22] MEDS: VANCOMYCIN 1,250 MG/NS 250 ML 1,250 MG/250 ML BAG 166.67 MG IVPB ×2 (06:37→18:04)
[2024-08-22] MEDS: LEVOTHYROXINE SODIUM 75 MCG TABLET PO (06:37)
[2024-08-22] MEDS: SALINE LOCK FLUSH 20 ML IV PUSH ×2 (06:37→08:19)
[2024-08-22 08:00] VITALS: BP 107/60; PULSE 80; RESP 14; TEMP 36.4; O2SAT 96
[2024-08-22] MEDS: NICOTINE (*PBKC) 21 MG PATCH 1 PATCH TRANSDERM (08:53)
[2024-08-22] MEDS: ENOXAPARIN 40 MG/0.4 ML SYRINGE SUB-Q (08:53)
[2024-08-22] MEDS: FOLIC ACID 1 MG TABLET PO (08:54)
[2024-08-22] MEDS: IRBESARTAN 150 MG TABLET 300 MG PO (08:54)
[2024-08-22] MEDS: ASPIRIN 81 MG CHEWABLE TABLET PO (08:54)
[2024-08-22] MEDS: MAGNESIUM OXIDE 400 MG TABLET PO ×2 (08:55→17:59)
[2024-08-22] MEDS: ROSUVASTATIN 10 MG TABLET PO (08:55)
[2024-08-22] MEDS: CALCIUM CARBONATE (TUMS) 500 MG (200 MG ELEMENTAL) PO (08:59)
[2024-08-22] MEDS: PANTOPRAZOLE 40 MG TABLET PO (09:00)
--- NOTE | 2024-08-22 09:43 | PC.NURSE ---
Diet change recommended from LFLC to Regular diet for optimal PO intake per Registered Dietitian. New order written for regular diet per HAT PARTS CUTTER MACHINE today.
[2024-08-22] MEDS: cefTRIAXone 2 GM/NS 100 ML 2 GM/100 ML BAG IVPB ×2 (10:31→22:17)
[2024-08-22] MEDS: CYCLOBENZAPRINE HCL 10 MG TABLET PO ×2 (11:57→20:45)
[2024-08-22 16:35] VITALS: BP 134/77; PULSE 79; RESP 16; TEMP 36.6; O2SAT 96
--- NOTE | 2024-08-22 18:35 | PC.NURSE ---
Patient reports he thinks his ankle would feel better if it was wrapped in an hero bandage. Left ankle wrapped with hero bandage. Patient's states they think is still sore from the intial fall he had before he came into the hospital.
[2024-08-22] MEDS: traZODone HCL 50 MG TABLET 150 MG PO (20:44)
[2024-08-22] MEDS: QUEtiapine FUMARATE 25 MG TABLET PO (20:45)
[2024-08-23] VITALS: BP 131/75; PULSE 77; RESP 17; TEMP 36.7; O2SAT 97
[2024-08-23 05:27] LABS: Estimated CRCL calculation 53 ml/min; Estimated Glomerular Filt Rate 57
[2024-08-23] MEDS: LEVOTHYROXINE SODIUM 75 MCG TABLET PO (05:42)
[2024-08-23] MEDS: VANCOMYCIN 1,250 MG/NS 250 ML 1,250 MG/250 ML BAG 166.67 MG IVPB ×2 (05:45→17:42)
[2024-08-23 08:00] VITALS: BP 119/68; PULSE 81; RESP 14; TEMP 36.7; O2SAT 97
[2024-08-23] MEDS: NICOTINE (*PBKC) 21 MG PATCH 1 PATCH TRANSDERM (09:27)
[2024-08-23] MEDS: ROSUVASTATIN 10 MG TABLET PO (09:27)
[2024-08-23] MEDS: ENOXAPARIN 40 MG/0.4 ML SYRINGE SUB-Q (09:27)
[2024-08-23] MEDS: ASPIRIN 81 MG CHEWABLE TABLET PO (09:28)
[2024-08-23] MEDS: MAGNESIUM OXIDE 400 MG TABLET PO ×2 (09:28→17:40)
[2024-08-23] MEDS: IRBESARTAN 150 MG TABLET 300 MG PO (09:28)
[2024-08-23] MEDS: FOLIC ACID 1 MG TABLET PO (09:28)
[2024-08-23] MEDS: OMEPRAZOLE 20 MG PO (09:29)
[2024-08-23] MEDS: [UNRECOGNIZED DRUG - OTHER] PO (09:29)
[2024-08-23] MEDS: cefTRIAXone 2 GM/NS 100 ML 2 GM/100 ML BAG IVPB ×2 (10:32→21:53)
[2024-08-23 16:35] VITALS: BP 129/78; PULSE 89; RESP 16; TEMP 36.8; O2SAT 97
--- NOTE | 2024-08-23 18:00 | PC.NURSE ---
Day shift nurse Aure notified this RN that purple PICC lumen would not flush. This nurse attempted to flush site, very sluggish and hard to push flush. Cap on PICC line changed, lumen sill very hard to flush. Charge nurse Irena notified, will contact Radha PAIZ about issue.
[2024-08-23 20:00] VITALS: PULSE 80; RESP 18; O2SAT 97
[2024-08-23] MEDS: traZODone HCL 50 MG TABLET 150 MG PO (20:42)
[2024-08-23] MEDS: QUEtiapine FUMARATE 25 MG TABLET PO (20:43)
[2024-08-23] MEDS: HEPARIN SODIUM LOCK FLUSH 500 UNITS/5 ML VIAL IV PUSH (21:23)
[2024-08-23 23:47] VITALS: BP 124/66; PULSE 80; RESP 18; TEMP 36.6; O2SAT 97
[2024-08-24 05:42] LABS: Vancomycin Trough 22.3 ug/mL (10.0-15.0)
[2024-08-24] MEDS: LEVOTHYROXINE SODIUM 75 MCG TABLET PO (06:27)
[2024-08-24 07:59] VITALS: BP 111/68; PULSE 86; RESP 16; TEMP 36.6; O2SAT 96
[2024-08-24] MEDS: NICOTINE (*PBKC) 21 MG PATCH 1 PATCH TRANSDERM (08:27)
[2024-08-24] MEDS: ENOXAPARIN 40 MG/0.4 ML SYRINGE SUB-Q (08:28)
[2024-08-24] MEDS: IRBESARTAN 150 MG TABLET 300 MG PO (08:29)
[2024-08-24] MEDS: ASPIRIN 81 MG CHEWABLE TABLET PO (08:30)
[2024-08-24] MEDS: ROSUVASTATIN 10 MG TABLET PO (08:30)
[2024-08-24] MEDS: FOLIC ACID 1 MG TABLET PO (08:30)
[2024-08-24] MEDS: MAGNESIUM OXIDE 400 MG TABLET PO ×2 (08:31→17:02)
[2024-08-24] MEDS: [UNRECOGNIZED DRUG - OTHER] PO (08:31)
[2024-08-24] MEDS: OMEPRAZOLE 20 MG PO (08:31)
[2024-08-24] MEDS: cefTRIAXone 2 GM/NS 100 ML 2 GM/100 ML BAG IVPB ×2 (09:02→21:20)
[2024-08-24] MEDS: VANCOMYCIN 1,250 MG/NS 250 ML 1,250 MG/250 ML BAG 166.67 MG IVPB (12:16)
[2024-08-24] MEDS: ALTEPLASE 2 MG VIAL (CATHFLO) IV PUSH (13:58)
[2024-08-24 16:00] VITALS: BP 144/79; PULSE 82; RESP 16; TEMP 36.7; O2SAT 97
--- NOTE | 2024-08-24 16:04 | PC.NURSE ---
Patency restored to PICC lumens.
--- NOTE | 2024-08-24 16:27 | PC.NURSE ---
Patient discovered ambulating on his own right after being assisted to the bathroom. Tax Specialist assisted patient back to his chair where there is an alarm
[2024-08-24 20:00] VITALS: PULSE 85; RESP 16; O2SAT 96
[2024-08-24] MEDS: traZODone HCL 50 MG TABLET 150 MG PO (21:15)
[2024-08-24] MEDS: QUEtiapine FUMARATE 25 MG TABLET PO (21:15)
[2024-08-24] MEDS: SALINE LOCK FLUSH 20 ML IV PUSH (21:21)
[2024-08-25] VITALS: BP 117/76; PULSE 86; RESP 16; TEMP 36.1; O2SAT 6
[2024-08-25] MEDS: VANCOMYCIN 1,250 MG/NS 250 ML 1,250 MG/250 ML BAG 166.67 MG IVPB (06:15)
[2024-08-25] MEDS: LEVOTHYROXINE SODIUM 75 MCG TABLET PO (06:15)
[2024-08-25 07:07] LABS: Estimated CRCL calculation 55 ml/min; Estimated Glomerular Filt Rate 59
[2024-08-25 08:00] VITALS: BP 134/78; PULSE 78; RESP 16; TEMP 36.5; O2SAT 94
[2024-08-25] MEDS: ENOXAPARIN 40 MG/0.4 ML SYRINGE SUB-Q (08:39)
[2024-08-25] MEDS: ASPIRIN 81 MG CHEWABLE TABLET PO (08:40)
[2024-08-25] MEDS: ROSUVASTATIN 10 MG TABLET PO (08:41)
[2024-08-25] MEDS: NICOTINE (*PBKC) 21 MG PATCH 1 PATCH TRANSDERM (08:41)
[2024-08-25] MEDS: MAGNESIUM OXIDE 400 MG TABLET PO ×2 (08:41→17:25)
[2024-08-25] MEDS: FOLIC ACID 1 MG TABLET PO (08:41)
[2024-08-25] MEDS: IRBESARTAN 150 MG TABLET 300 MG PO (08:41)
[2024-08-25] MEDS: [UNRECOGNIZED DRUG - OTHER] PO (08:42)
[2024-08-25] MEDS: OMEPRAZOLE 20 MG PO (08:42)
[2024-08-25] MEDS: cefTRIAXone 2 GM/NS 100 ML 2 GM/100 ML BAG IVPB ×2 (09:24→21:17)
[2024-08-25 16:00] VITALS: BP 144/84; PULSE 79; RESP 16; TEMP 36.6; O2SAT 96
[2024-08-25] MEDS: CYCLOBENZAPRINE HCL 10 MG TABLET PO ×2 (17:25→21:55)
[2024-08-25] MEDS: HYDROcodone/acetaminophen (*CRX) 5-325 MG TABLET 1 TAB PO (19:48)
[2024-08-25 20:00] VITALS: PULSE 75; RESP 16; O2SAT 95
[2024-08-25] MEDS: QUEtiapine FUMARATE 25 MG TABLET PO (21:16)
[2024-08-25] MEDS: traZODone HCL 50 MG TABLET 150 MG PO (21:16)
[2024-08-25] MEDS: SALINE LOCK FLUSH 20 ML IV PUSH (21:57)
[2024-08-26] VITALS: BP 111/73; PULSE 78; RESP 16; TEMP 36.3; O2SAT 95
--- NOTE | 2024-08-26 00:30 | PC.NURSE ---
Blood pulled from PICC line and taken to lab for Vanco trough, awaiting results
[2024-08-26 01:05] LABS: Vancomycin Trough 13.6 ug/mL (10.0-15.0)
--- NOTE | 2024-08-26 01:30 | PC.NURSE ---
Earnestine from lab called with Vanco trough results of 13.6, call placed to [facility], spoke with Lu, awaiting orders.
--- NOTE | 2024-08-26 01:59 | PC.NURSE ---
Patient had a vanco trough scheduled for 2300. Lab called to say she was running late due to ED orders. Called lab about 2350, stated they would come as soon as finished one more patient. At 0030, charge nurse kameron blood from patient's PICC line and took to lab. Results from lab called in approximately 0130. Charge nurse notified [facility]. It is now after 0200, awaiting orders from [facility] before giving Vancomyacin that was due at 0000.
[2024-08-26] MEDS: VANCOMYCIN 1,250 MG/NS 250 ML 1,250 MG/250 ML BAG 166.67 MG IVPB ×2 (02:22→14:19)
[2024-08-26] MEDS: LEVOTHYROXINE SODIUM 75 MCG TABLET PO (06:38)
[2024-08-26 08:00] VITALS: BP 122/78; PULSE 78; RESP 14; TEMP 36.9; O2SAT 97
[2024-08-26] MEDS: NICOTINE (*PBKC) 21 MG PATCH 1 PATCH TRANSDERM (08:48)
[2024-08-26] MEDS: ENOXAPARIN 40 MG/0.4 ML SYRINGE SUB-Q (08:48)
[2024-08-26] MEDS: ROSUVASTATIN 10 MG TABLET PO (08:49)
[2024-08-26] MEDS: [UNRECOGNIZED DRUG - OTHER] PO (08:49)
[2024-08-26] MEDS: MAGNESIUM OXIDE 400 MG TABLET PO ×2 (08:49→18:15)
[2024-08-26] MEDS: OMEPRAZOLE 20 MG PO (08:49)
[2024-08-26] MEDS: ASPIRIN 81 MG CHEWABLE TABLET PO (08:49)
[2024-08-26] MEDS: FOLIC ACID 1 MG TABLET PO (08:49)
[2024-08-26] MEDS: IRBESARTAN 150 MG TABLET 300 MG PO (08:49)
[2024-08-26] MEDS: cefTRIAXone 2 GM/NS 100 ML 2 GM/100 ML BAG IVPB ×2 (10:46→21:02)
[2024-08-26 16:35] VITALS: BP 145/80; PULSE 76; RESP 18; TEMP 36.3; O2SAT 96
[2024-08-26 20:00] VITALS: PULSE 76; RESP 18; O2SAT 96
[2024-08-26] MEDS: CYCLOBENZAPRINE HCL 10 MG TABLET PO (21:00)
[2024-08-26] MEDS: HYDROcodone/acetaminophen (*CRX) 5-325 MG TABLET 1 TAB PO (21:00)
[2024-08-26] MEDS: QUEtiapine FUMARATE 25 MG TABLET PO (21:00)
[2024-08-26] MEDS: traZODone HCL 50 MG TABLET 150 MG PO (21:00)
[2024-08-27] VITALS: BP 143/72; PULSE 81; RESP 17; TEMP 36.4; O2SAT 96
[2024-08-27] MEDS: VANCOMYCIN 1,250 MG/NS 250 ML 1,250 MG/250 ML BAG 166.67 MG IVPB (01:08)
[2024-08-27] MEDS: LEVOTHYROXINE SODIUM 75 MCG TABLET PO (06:00)
[2024-08-27 07:52] LABS: Mean Corpuscular HGB Conc 31.4 g/dL (32-36); Mean Corpuscular Hemoglobin 29.2 pg (27.0-31.0); Mean Corpuscular Volume 92.8 fL (78.0-102.0); Mean Platelet Volume 9.4 fl (8.7-11.0); Platelet Count Result 274 K/mm3 (150-420); Red Blood Count 3.77 M/mm3 (4.70-6.10); White Blood Count 7.9 K/mm3 (4.8-10.8)
[2024-08-27 08:00] VITALS: BP 124/76; PULSE 81; RESP 14; TEMP 36.2; O2SAT 93
[2024-08-27 08:12] LABS: Alanine Aminotransferase 39 U/L (16-63); Albumin Level 2.6 g/dL (3.4-5.0); Alkaline Phosphatase 91 U/L (46-116); Anion Gap 7 mmol/L (4-12); Aspartate Amino Transferase 18 U/L (15-37); Bilirubin,Total 0.4 mg/dL (0.00-1.00); Blood Urea Nitrogen 15 mg/dL (7-18); Carbon Dioxide 29 mmol/L (21-32); Chloride 99 mmol/L (98-108); Estimated CRCL calculation 52 ml/min; Estimated Glomerular Filt Rate 55; Glucose 99 mg/dL (70-99); Osmolality Calculated 280 mOsm/kg (285-295); Potassium 4.2 mmol/L (3.5-5.1); Sodium 135 mmol/L (136-145); Total Protein 7.3 g/dL (6.4-8.2)
[2024-08-27] MEDS: cefTRIAXone 2 GM/NS 100 ML 2 GM/100 ML BAG IVPB (08:41)
[2024-08-27] MEDS: MAGNESIUM OXIDE 400 MG TABLET PO (08:42)
[2024-08-27] MEDS: ASPIRIN 81 MG CHEWABLE TABLET PO (08:42)
[2024-08-27] MEDS: IRBESARTAN 150 MG TABLET 300 MG PO (08:42)
[2024-08-27] MEDS: FOLIC ACID 1 MG TABLET PO (08:42)
[2024-08-27] MEDS: ENOXAPARIN 40 MG/0.4 ML SYRINGE SUB-Q (08:42)
[2024-08-27] MEDS: ROSUVASTATIN 10 MG TABLET PO (08:42)
[2024-08-27] MEDS: NICOTINE (*PBKC) 21 MG PATCH 1 PATCH TRANSDERM (08:43)
[2024-08-27] MEDS: OMEPRAZOLE 20 MG PO (08:45)
[2024-08-27] MEDS: [UNRECOGNIZED DRUG - OTHER] PO (08:45)
--- NOTE | 2024-08-27 11:55 | P.DS_ITS ---
DS: Admitting Diagnosis Discharge Date 08/27/2024 Admitting Diagnosis IV antibiotic therapy for bacterial meningitis/REHAB DS: Discharge Diagnosis Discharge Diagnosis (1) Meningitis: Code(s): G03.9 - Meningitis, unspecified Status: Acute Assessment and Plan: * Completed Rocephin 2 g and vancomycin until August 28 per Infectious Disease pharmacist recommendation * Remove PICC (2) Generalized weakness: Code(s): R53.1 - Weakness Status: Acute Assessment and Plan: * PT and OT ordered (3) Hypertension: Code(s): I10 - Essential (primary) hypertension Status: Acute Assessment and Plan: * Continue amlodipine and Avapro (4) Hyperlipidemia: Code(s): E78.5 - Hyperlipidemia, unspecified Status: Acute Assessment and Plan: * continue Rosuvastatin and aspirin (5) Hypothyroidism: Code(s): E03.9 - Hypothyroidism, unspecified Status: Acute Assessment and Plan: * continue synthroid (6) Tobacco abuse: Code(s): Z72.0 - Tobacco use Status: Acute Assessment and Plan: * Nicotine patch ordered * Current 1 pack per day smoker Plan Disposition: Discharged to home DS: Summary Hospital Course Reason for hospitalization: rehab/ IV therapy for bacterial meningitis Hospital Course: Patient was a 69 year old male with a significant past medical history of Hypothyroidism, arthritis, hypertension, hyperlipidemia, CVA, meningitis, current every day smoker who presented to [facility] for continued antibiotics for bacterial meningitis. He originally presented to [facility] on 08/08/[facility] for evaluation after a fall and altered mental status. He was complaining of left ankle and left shoulder pain when he 1st presented. Workup in the hospital did not show any acute fractures. head CT was also negative. Patient was reported to have a stiff neck with neck pain and saw his primary care doctor who prescribed him trazodone. Patient doubled his dose and that is how he fell. During the hospitalization he became more confused with hallucinations on 08/10/24 and Neurology was consulted. MRI was performed which showed brain atrophy with deep white matter ischemic changes, no acute infarct or hemorrhage, no masses or enhancing lesions. He then had a spinal tap and CS culture showed no organisms. He was started on cefepime, vancomycin, ampicillin Initially. Prior to the spinal tap he was receiving Rocephin due to possible pneumonia. Infectious Disease pharmacist recommended to go with Rocephin and with vancomycin for 14 days for bacterial meningitis coverage. He will finish his course of antibiotics on the night August 27. He will need to follow up with Infectious Disease pharmacy on an outpatient. His cerebral spinal fluid was tested for syphilis, hepatitis, and HIV and was negative. Other labs are still pending. On exam patient denies any new complaints today. He denies any fever, chills, nausea, vomiting, diarrhea, abdominal pain, chest pain, shortness a breath. He is alert and oriented x3, vital signs are stable, he is afebrile, he is currently on room air. Patient came to swing bed here at [facility] to finish antibiotic therapy and also to receive additional rehab. patient with overall improvement had completed his last initial doses of IV vancomycin and Rocephin 2 g. PICC was then removed discussed the need to follow-up with infectious disease outpatient at which time spouse reported she had found 1 in [place] that they will be following up with. patient seen and assessed a discharge spouse at bedside reviewed over discharge plans both patient and spouse agreed and patient was discharged home transported via her his spouse. at time of discharge patient was ambulatory on own alert and oriented x4 with no complaints. Status at Discharge Functional status at discharge: independent ambulation Overall status at discharge: patient is back to baseline Time Spent with Patient Time attestation: Total time spent providing and/or coordinating discharge services: Time spent: Greater than 30 minutes Exam Narrative: General: In no acute distress, well nourished Head: atraumatic, no encephalopathy Eyes: PERRLA, sclera clear ENT: moist mucous membranes, nasal passages clear Neck: supple, no JVD, no adenopathy, trachea midline Cardiac: Normal S1 and S2. RRR, No murmur, gallops or friction rubs, peripheral pulses intact. Respiratory: Expiratory wheezing noted bilaterally with mild rhonchi, no adventitious lung sounds, currently on room air Gastrointestinal: soft, non-distended, non-tender, normoactive bowel sounds. : voiding without difficulty. Extremities: moves all extremities well, no edema Skin: clean, dry, intact. No wounds or lesions. Neuro: Alert and oriented x4, cranial nerves intact, no neuro deficits. Psych: normal mood, normal affect, interactive DS: Data Data Completed and Pending Labs on day of discharge: Labs from last 24 hours 08/27/24 08/27/24 13:00 07:33 WBC 7.9 RBC 3.77 L Hgb 11.0 L Hct 35.0 L MCV 92.8 MCH 29.2 MCHC 31.4 L RDW 14.0 Plt Count 274 MPV 9.4 Sodium 135 L Potassium 4.2 Chloride 99 Carbon Dioxide 29 Anion Gap 7 BUN 15 Creatinine 1.29 Estim Creat Clear Calc 52 Estimated GFR 55 L Glucose 99 Calculated Osmolality 280 L Calcium 9.0 Total Bilirubin 0.4 AST 18 ALT 39 Alkaline Phosphatase 91 Total Protein 7.3 Albumin 2.6 L Vancomycin Trough 25.0 H* Discharge Plan Discharge Attending physician on discharge: Og Howell Consulting providers: Bee Jacinto; Dayana Ivan Discharging Clinician: Dayana Ivan Anticipated Discharge Date/Time: 08/27/24 11:49 Patient Disposition: Home Activity: may shower and as tolerated Diet: heart healthy Discharge Instructions: Bacterial meningitis: * You completed your Antibiotic therapy while hospitalized * Please follow-up with Infectious Disease for of your choice * Follow-up with primary care physician within 1 week * If symptoms return please seek medical attention immediately How can you care for yourself at home? ? Keep track of any new symptoms or changes in your symptoms. ? Rest until you feel better. ? Be safe with medicines. Take your medicines exactly as prescribed. Call your doctor if you think you are having a problem with your medicine. ? Do not drive after taking a prescription pain medicine. ? Ensure to follow-up with primary care physician as indicated and provide updated medication list provided to you at discharge. When should you call for help? Call 911 anytime you think you may need emergency care. For example, call if: ? You passed out (lost consciousness). Call your doctor now or seek immediate medical care if: ? You have new symptoms like fever, difficulty breathing, Chest pain, vomiting, or rash. ? You have new or different pain. ? You are confused and are having trouble thinking clearly. ? Your symptoms are getting worse. Watch closely for changes in your health, and be sure to contact your doctor if: ? You do not get better as expected. Patient Instructions: Antibiotic Form, Bacterial Meningitis (DC), Fall Prevention for Older Adults (DC), Weakness (DC), Removal of a Central Line, PICC, or Midline Catheter (DC) Patient Language: New Zealander Stand Alone Forms: General Discharge Information Follow-up/Referrals: Bryn,Derick Aquino MD [Primary Care Provider] - 09/02/24 11:00 am (Referral to Infectious Disease Your appt was made with Nurse Practitioner Yoana Foss. office requested that you bring current medication in bottles, photo ID and insurance card. Please call office if there is any reason you may have to call/cancel appt. ) Discharge Medications: Continued quetiapine [Seroquel] 25 mg Tablet 25 mg PO HS Qty: 30 0RF folic acid 1 mg Tablet 1 mg PO DAILY Qty: 30 0RF lisinopril-hydrochlorothiazide 20-12.5 mg tablet 1 tablet PO DAILY magnesium oxide 400 mg (241.3 mg magnesium) tablet 400 mg PO BID amlodipine 10 mg tablet 10 mg PO DAILY irbesartan 150 mg tablet 150 mg PO DAILY rosuvastatin 10 mg tablet 10 mg PO DAILY trazodone 150 mg tablet 150 mg PO QHS levothyroxine 75 mcg tablet 75 mcg PO DAILY cyclobenzaprine 10 mg tablet 10 mg PO BID PRN (Reason: muscle spasm) aspirin 81 mg tablet,chewable 81 mg PO DAILY calcium carbonate 500 mg calcium (1,250 mg) Tablet,Chewable 200 mg PO Q6H PRN (Reason: Indigestion) Qty: 60 0RF Discontinued esomeprazole magnesium [Nexium 24HR] 20 mg tablet,delayed release (DR/EC) 20 mg PO DAILY Patient Comments: to be resumed on08-23-24 ceftriaxone 2 gram Recon Soln 2 g IV Q12HR Qty: 10 12RF enoxaparin [Lovenox] 40 mg/0.4 mL Syringe 40 mg subcut DAILY Qty: 4 12RF guaifenesin [Mucus Relief ER] 600 mg Tablet Extended Release 12hr 600 mg PO Q12HR PRN (Reason: coughing) Qty: 30 0RF vancomycin 1.5 gram Recon Soln 1,500 mg IV Q12H Qty: 10 12RF Date of admission: 08/20/24 15:35 Primary Care Provider: Bryn,Derick Aquino Admitting Provider: Og Howell Attending physician on admission: Bee Jacinto Condition: Improved Quality -Patient's previous records reviewed on admission -ER notes reviewed in detail on admission -discussed all findings and current treatment plan with patient/Family/POA -Consultations reviewed for recommendations -Patient's disposition for safe discharge discussed with rn field case manager Dictation performed by [employer] direct speech recognition software, therefore structural biologist variants and typographical errors may occur. Hospitalist MIPS Heart Failure (Exclusion) Patient has history of Heart Transplant or Left Ventricular Assistive Device?: No IF YES, STOP HERE Heart Failure (Qualifier) Patient has current or prior documentation of LVEF less than or equal to 40%, or mod/servere depressed LVSF?: No IF NO, STOP HERE
--- NOTE | 2024-08-27 15:29 | PC.NURSE ---
Pt discharged to home with spouse. Discharge orders reviewed with both. Both pt and spouse verbalized understanding. Pt taken to family car via WC by nurse.
--- NOTE | 2024-08-28 13:25 | PC.NURSE ---
Called for follow up, no answer.
--- NOTE | 2024-08-29 14:40 | PC.NURSE ---
Called patient for call back follow up. Unable to leave voice mail r/t not being set up. This is the second attempt.
== END 2024-08-27 12:50 | disposition home or self-care (01) | DRG 96 ==
PROVIDERS: Nurse Practitioner Family; Admitting Provider Internal Medicine; PCP Family Medicine; Visit Provider Nurse Practitioner Acute Care
DX: G00.9 Bacterial meningitis, unspecified (principal); I10 Essential (primary) hypertension; E03.9 Hypothyroidism, unspecified; E78.5 Hyperlipidemia, unspecified; M19.90 Unspecified osteoarthritis, unspecified site; F17.210 Nicotine dependence, cigarettes, uncomplicated; Z86.73 Personal history of transient ischemic attack (TIA), and cerebral infarction without residual deficits; Z79.82 Long term (current) use of aspirin
CPT/HCPCS: 36415; 80053; 80202; 82565; 85027; 87040; 97110; 97161; 97165; 97530; 97535; A9270; J0696; J1642; J1650; J2997; J3370